=== PATIENT | male | born 1960 | race Caucasian/White ===

== ENCOUNTER 2016-05-21 10:46 | Emergency (ER) | payer OTHER ==
[~2016-05-21] VITALS: Ht 167.6 cm; Wt 100.0 kg
[~2016-05-21 10:46] MED LIST: ALBU8HFA IH; AMLO-511 PO; ATOR20TA86 PO; AUD NEB; BENA20 PO; BUDE10.2 IH; FLUT16H NASAL; FURO20 PO; KDUR10 PO; MONT10TA21 PO; OMEP20 PO
[2016-05-21] MEDS ORDERED: IPRATROPIUM BROMIDE 0.5 MG/2.5 ML NEB SOLUTION NEB ONE ×2 (11:05→12:15)
[2016-05-21] MEDS ORDERED: 0.9% SODIUM CHLORIDE 5 ML NEB SOLUTION NEB ONE ×2 (11:05→12:31)
[2016-05-21] MEDS ORDERED: ALBUTEROL SULFATE 2.5 MG/0.5 ML NEB SOLUTION NEB ONE (12:15)
[2016-05-21] MEDS ORDERED: HYDROCODONE/ACETAMINOPHEN 5-325 MG TABLET PO ONE (12:15)
[2016-05-21] MEDS ORDERED: PredniSONE 20 MG TABLET PO ONE (12:15)
[2016-05-21 13:21] VITALS: BP 121/81
== END 2016-05-21 13:22 | disposition home or self-care (01) ==
LOC: EMS 10:50
DX: J45.909 Unspecified asthma, uncomplicated (principal); I10 Essential (primary) hypertension; K21.9 Gastro-esophageal reflux disease without esophagitis; E78.00 Pure hypercholesterolemia, unspecified; Z88.6 Allergy status to analgesic agent
CPT/HCPCS: 71010; 93005; 94640; 99284; J7512

== ENCOUNTER 2016-05-27 00:47 | Emergency (ER) | payer MEDICARE, MEDICAID ==
[~2016-05-27] VITALS: Ht 167.6 cm; Wt 104.5 kg
[2016-05-27] MEDS ORDERED: IPRATROPIUM BROMIDE 0.5 MG/2.5 ML NEB SOLUTION NEB ONE ×2 (01:00)
[2016-05-27] MEDS ORDERED: ALBUTEROL SULFATE 5 MG/ML 20 ML NEB SOLN [BULK] NEB ONE ×2 (01:00→02:15)
[2016-05-27] MEDS ORDERED: LEVALBUTEROL HCL 1.25 MG/0.5 ML NEB SOLUTION NEB ONE (01:00)
[2016-05-27] MEDS ORDERED: 0.9% SODIUM CHLORIDE 5 ML NEB SOLUTION NEB ONE ×2 (01:05→02:18)
[2016-05-27 01:29] LABS: BASOPHILS % (AUTO) 0.7 % (0.0-2.0); EOSINOPHILS % (AUTO) 7.3 % (1.0-6.0); HEMOGLOBIN 13.3 g/dL (13.5-17.5); LYMPHOCYTES # (AUTO) 1.4 K/uL (1.0-4.8); LYMPHOCYTES % (AUTO) 9.8 % (22.0-44.0); MEAN CORPUSCULAR HEMOGLOBIN 26.8 pg (26.0-34.0); MEAN CORPUSCULAR HGB CONC 32.6 G/dL (31.0-37.0); MEAN CORPUSCULAR VOLUME 82 fL (80-100); MONOCYTES # (AUTO) 1.1 K/uL (0.1-1.0); MONOCYTES % (AUTO) 7.9 % (2.0-9.0); NEUTROPHILS # (AUTO) 10.3 K/uL (1.8-7.7); NEUTROPHILS % (AUTO) 74.3 % (40.0-70.0); PLATELET COUNT (AUTO) 243 K/uL (150-450); RED BLOOD CELL COUNT(AUTO) 4.97 MIL/uL (4.50-5.90); RED CELL DISTRIBUTION WIDTH 15.9 % (11.5-14.5); WHITE BLOOD COUNT (AUTO) 13.9 K/uL (4.5-11.0)
[2016-05-27 01:46] LABS: ANION GAP 13 mmol/L (8-16); CARBON DIOXIDE 25 mmol/L (22-29); CHLORIDE 101 mmol/L (98-107); SODIUM SERUM 139 mmol/L (136-145)
[2016-05-27 01:48] LABS: B-TYPE NATRIURETIC PEPTIDE 30 pg/mL (0-100); POTASSIUM 2.7 mmol/L (3.5-5.1)
[2016-05-27 01:50] LABS: ALANINE AMINOTRANSFERASE 35 U/L (12-78); ALBUMIN 3.6 g/dL (3.4-5.0); ASPARTATE AMINOTRANSFERASE 23 U/L (15-37); BILIRUBIN,TOTAL 0.6 mg/dL (0.1-1.0); CALCIUM, TOTAL 7.4 mg/dL (8.8-10.5); CREATININE 1.01 mg/dL (0.60-1.30); GLOMERULAR FILTR. RATE CALC > 60 mL/min (>60); TOTAL PROTEIN, SERUM 6.4 g/dL (6.4-8.2); UREA NITROGEN, BLOOD 11 mg/dL (7-18)
[2016-05-27] MEDS ORDERED: OxyCODONE HCL/ACETAMINOPHEN 5-325 MG TABLET PO ONE (02:00)
[2016-05-27] MEDS ORDERED: POTASSIUM CHLORIDE 20 MEQ ER TABLET PO ONE (02:00)
[2016-05-27 02:02] LABS: CREATINE KINASE MB 1.5 ng/mL (0-5); CREATINE KINASE, TOTAL 209 U/L (39-308)
[2016-05-27] MEDS ORDERED: CefTRIAXone 1 GM/DEXTROSE 50 ML IV ONE (02:15)
[2016-05-27] MEDS ORDERED: MethylPREDNISolone SOD SUCC 125 MG/2 ML VIAL IVP ONE (02:15)
[2016-05-27] MEDS ORDERED: AZITHROMYCIN 500 MG/NS 250 ML IV ONE (02:15)
[2016-05-27 03:59] VITALS: BP 155/83
== END 2016-05-27 04:00 | disposition left against medical advice (07) ==
LOC: EMS 00:49
DX: J45.901 Unspecified asthma with (acute) exacerbation (principal); J18.9 Pneumonia, unspecified organism; E87.6 Hypokalemia; I10 Essential (primary) hypertension; E78.00 Pure hypercholesterolemia, unspecified; K21.9 Gastro-esophageal reflux disease without esophagitis; Z88.6 Allergy status to analgesic agent
CPT/HCPCS: 36415; 71010; 80053; 82550; 82553; 83880; 84484; 85025; 87040; 93005; 94644; 94645; 96365; 96368; 96375; 99285; J0456; J0696; J2930

== ENCOUNTER → 2016-05-31 | Outpatient (CLI) | payer MEDICARE, MEDICAID ==
[~2016-05-31] VITALS: Ht 165.1 cm; Wt 114.6 kg
[2016-05-31 10:54] VITALS: BP 140/95
== END | disposition home or self-care (01) ==
LOC: SRCNTR 10:19
PROVIDERS: ATTEND Internal Medicine Critical Care Medicine
DX: I10 Essential (primary) hypertension (principal); J45.51 Severe persistent asthma with (acute) exacerbation; E66.01 Morbid (severe) obesity due to excess calories; E78.5 Hyperlipidemia, unspecified
CPT/HCPCS: G0463

== ENCOUNTER → 2016-07-20 | Outpatient (CLI) | payer MEDICARE, MEDICAID ==
[~2016-07-20] VITALS: Ht 165.1 cm; Wt 117.0 kg
[2016-07-20 12:37] VITALS: BP 140/79
== END | disposition home or self-care (01) ==
LOC: SRCNTR 11:43
PROVIDERS: ATTEND Internal Medicine Critical Care Medicine
DX: I10 Essential (primary) hypertension (principal); J45.51 Severe persistent asthma with (acute) exacerbation; E66.01 Morbid (severe) obesity due to excess calories; E78.5 Hyperlipidemia, unspecified
CPT/HCPCS: G0463

== ENCOUNTER → 2016-07-25 | Outpatient (CLI) | payer MEDICARE, MEDICAID ==
[~2016-07-25] VITALS: Ht 165.1 cm; Wt 117.0 kg
[2016-07-25 09:11] VITALS: BP 143/92
== END | disposition home or self-care (01) ==
LOC: SRCNTR 08:48
PROVIDERS: ATTEND Internal Medicine Critical Care Medicine
DX: I10 Essential (primary) hypertension (principal); J45.909 Unspecified asthma, uncomplicated
CPT/HCPCS: 96372; G0463

== ENCOUNTER → 2016-07-25 | Outpatient (CLI) | payer MEDICARE, MEDICAID ==
[2016-07-25 12:17] LABS: BASOPHILS % (AUTO) 0.4 % (0.0-2.0); EOSINOPHILS % (AUTO) 5.2 % (1.0-6.0); HEMATOCRIT 42.5 % (41-53); HEMOGLOBIN 13.7 g/dL (13.5-17.5); LYMPHOCYTES # (AUTO) 1.8 K/uL (1.0-4.8); LYMPHOCYTES % (AUTO) 23.5 % (22.0-44.0); MEAN CORPUSCULAR HEMOGLOBIN 27.2 pg (26.0-34.0); MEAN CORPUSCULAR HGB CONC 32.1 G/dL (31.0-37.0); MEAN CORPUSCULAR VOLUME 85 fL (80-100); MONOCYTES # (AUTO) 0.6 K/uL (0.1-1.0); MONOCYTES % (AUTO) 7.7 % (2.0-9.0); NEUTROPHILS # (AUTO) 4.8 K/uL (1.8-7.7); NEUTROPHILS % (AUTO) 63.2 % (40.0-70.0); PLATELET COUNT (AUTO) 245 K/uL (150-450); RED BLOOD CELL COUNT(AUTO) 5.02 MIL/uL (4.50-5.90); RED CELL DISTRIBUTION WIDTH 16.2 % (11.5-14.5); WHITE BLOOD COUNT (AUTO) 7.6 K/uL (4.5-11.0)
== END | disposition home or self-care (01) ==
LOC: LABPV 09:45
PROVIDERS: ATTEND Internal Medicine Critical Care Medicine
DX: I10 Essential (primary) hypertension (principal); J45.909 Unspecified asthma, uncomplicated; E66.9 Obesity, unspecified

== ENCOUNTER → 2016-09-21 | Outpatient (CLI) | payer MEDICARE, MEDICAID ==
[~2016-09-21] VITALS: Ht 165.1 cm; Wt 110.2 kg
[2016-09-21 11:38] VITALS: BP 133/92
== END | disposition home or self-care (01) ==
LOC: SRCNTR 11:31
PROVIDERS: ATTEND Internal Medicine Critical Care Medicine
DX: I10 Essential (primary) hypertension (principal); E78.5 Hyperlipidemia, unspecified; E66.01 Morbid (severe) obesity due to excess calories; J45.51 Severe persistent asthma with (acute) exacerbation
CPT/HCPCS: G0463

== ENCOUNTER → 2016-10-13 | Outpatient (CLI) | payer MEDICARE, MEDICAID ==
[~2016-10-13] VITALS: Ht 165.1 cm; Wt 108.6 kg
[2016-10-13 12:34] VITALS: BP 125/78
== END | disposition home or self-care (01) ==
LOC: SRCNTR 12:29
PROVIDERS: ATTEND Internal Medicine Critical Care Medicine
DX: J45.51 Severe persistent asthma with (acute) exacerbation (principal); E66.01 Morbid (severe) obesity due to excess calories; I10 Essential (primary) hypertension; E78.5 Hyperlipidemia, unspecified; Z96.652 Presence of left artificial knee joint; Z85.47 Personal history of malignant neoplasm of testis
CPT/HCPCS: G0463

== ENCOUNTER → 2017-05-05 | Outpatient (CLI) | payer MEDICAID, MEDICARE ==
[~2017-05-05] VITALS: Ht 165.1 cm; Wt 100.0 kg
[~2017-05-05] MED LIST changes: +MEPO100V SQ
[2017-05-05 13:22] VITALS: BP 98/62
== END | disposition home or self-care (01) ==
LOC: SRCNTR 12:49
PROVIDERS: ATTEND Internal Medicine Critical Care Medicine
DX: J45.51 Severe persistent asthma with (acute) exacerbation (principal); E66.01 Morbid (severe) obesity due to excess calories; I10 Essential (primary) hypertension; E78.5 Hyperlipidemia, unspecified
CPT/HCPCS: G0463

== ENCOUNTER 2017-07-17 18:13 | Emergency (ER) | payer MEDICARE, MEDICAID ==
[~2017-07-17] VITALS: Ht 167.6 cm; Wt 100.0 kg
[2017-07-17] MEDS ORDERED: 0.9% SODIUM CHLORIDE 5 ML NEB SOLUTION NEB ONE (18:22)
[2017-07-17] MEDS ORDERED: ALBUTEROL SULFATE 5 MG/ML 20 ML NEB SOLN [BULK] NEB ONE ×3 (18:22→19:30)
[2017-07-17] MEDS ORDERED: IPRATROPIUM BROMIDE 0.5 MG/2.5 ML NEB SOLUTION NEB ONE ×3 (18:22→19:30)
[2017-07-17] MEDS ORDERED: PredniSONE 20 MG TABLET PO ONE (19:00)
[2017-07-17] MEDS ORDERED: HYDROCODONE/ACETAMINOPHEN 5-325 MG TABLET PO ONE (19:00)
[2017-07-17] MEDS ORDERED: CefTRIAXone SODIUM 1 GM/VIAL IM ONE (19:00)
[2017-07-17] MEDS ORDERED: LIDOCAINE HCL/PF 1% 2 ML VIAL IM ONE (19:00)
[2017-07-17] MEDS ORDERED: 0.9% SODIUM CHLORIDE 15 ML NEB SOLUTION NEB ONE (19:28)
[2017-07-17 21:09] VITALS: BP 133/91
== END 2017-07-17 21:12 | disposition home or self-care (01) ==
LOC: EMS 18:15
DX: J45.901 Unspecified asthma with (acute) exacerbation (principal); E78.00 Pure hypercholesterolemia, unspecified; I10 Essential (primary) hypertension; K21.9 Gastro-esophageal reflux disease without esophagitis; Z88.6 Allergy status to analgesic agent
CPT/HCPCS: 94644; 94645; 96372; 99285; J0696; J3490; J7512

== ENCOUNTER → 2017-07-20 | Outpatient (CLI) | payer MEDICARE, MEDICAID ==
[~2017-07-20] VITALS: Ht 162.6 cm; Wt 105.0 kg
[2017-07-20 13:46] VITALS: BP 123/70
== END | disposition home or self-care (01) ==
LOC: SRCNTR 13:22
PROVIDERS: ATTEND Internal Medicine Critical Care Medicine
DX: J45.51 Severe persistent asthma with (acute) exacerbation (principal); E66.01 Morbid (severe) obesity due to excess calories; I10 Essential (primary) hypertension; E78.5 Hyperlipidemia, unspecified
CPT/HCPCS: G0463

== ENCOUNTER → 2017-08-11 | Outpatient (CLI) | payer MEDICARE, MEDICAID ==
[~2017-08-11] VITALS: Ht 162.6 cm; Wt 107.5 kg
[2017-08-11 13:55] VITALS: BP 137/90
== END | disposition home or self-care (01) ==
LOC: SRCNTR 13:45
PROVIDERS: ATTEND Internal Medicine Critical Care Medicine
DX: J45.51 Severe persistent asthma with (acute) exacerbation (principal); I10 Essential (primary) hypertension; E78.5 Hyperlipidemia, unspecified; E66.01 Morbid (severe) obesity due to excess calories; Z83.3 Family history of diabetes mellitus; Z88.6 Allergy status to analgesic agent
CPT/HCPCS: G0463

== ENCOUNTER 2017-08-22 17:57 | Emergency (ER) | payer MEDICARE, MEDICAID ==
[~2017-08-22] VITALS: Ht 167.6 cm; Wt 100.0 kg
[~2017-08-22 17:57] MED LIST changes: -FURO20 PO; -KDUR10 PO
[2017-08-22] MEDS ORDERED: ALBUTEROL SULFATE 2.5 MG/0.5 ML NEB SOLUTION NEB ONE (18:15)
[2017-08-22] MEDS ORDERED: IPRATROPIUM BROMIDE 0.5 MG/2.5 ML NEB SOLUTION NEB ONE ×2 (18:15→19:15)
[2017-08-22] MEDS ORDERED: HYDROCODONE/ACETAMINOPHEN 5-325 MG TABLET PO ONE ×2 (18:30→20:30)
[2017-08-22] MEDS ORDERED: ALBUTEROL SULFATE 5 MG/ML 20 ML NEB SOLN [BULK] NEB ONE (19:15)
[2017-08-22] MEDS ORDERED: 0.9% SODIUM CHLORIDE 15 ML NEB SOLUTION NEB ONE (19:18)
[2017-08-22] MEDS ORDERED: PredniSONE 20 MG TABLET PO ONE (20:30)
[2017-08-22 20:52] VITALS: BP 141/80
== END 2017-08-22 21:14 | disposition home or self-care (01) ==
LOC: EMS 18:00
DX: J45.901 Unspecified asthma with (acute) exacerbation (principal); E78.00 Pure hypercholesterolemia, unspecified; I10 Essential (primary) hypertension; K21.9 Gastro-esophageal reflux disease without esophagitis; Z88.6 Allergy status to analgesic agent
CPT/HCPCS: 94060; 94640; 94644; 99285; J7512

== ENCOUNTER 2017-10-29 08:25 | Inpatient (IN) | payer MEDICARE, MEDICAID ==
[~2017-10-29] VITALS: Ht 167.6 cm; Wt 110.3 kg
[2017-10-29] MEDS ORDERED: CLON-570 PO (08:36)
[2017-10-29] MEDS ORDERED: CROM10DR2 OU (08:36)
[2017-10-29] MEDS ORDERED: FURO20 PO (08:36)
[2017-10-29] MEDS ORDERED: ALBUTEROL SULFATE 5 MG/ML 20 ML NEB SOLN [BULK] NEB ONE ×2 (08:45→09:15)
[2017-10-29] MEDS ORDERED: IPRATROPIUM BROMIDE 0.5 MG/2.5 ML NEB SOLUTION NEB ONE ×2 (08:45→09:15)
[2017-10-29] MEDS ORDERED: MethylPREDNISolone SOD SUCC 125 MG/2 ML VIAL IVP ONE (09:00)
[2017-10-29 09:10] LABS: BASOPHILS % (AUTO) 1.4 % (0.0-2.0); EOSINOPHILS % (AUTO) 1.2 % (1.0-6.0); HEMATOCRIT 43.1 % (41-53); HEMOGLOBIN 14.4 g/dL (13.5-17.5); LYMPHOCYTES # (AUTO) 1.9 K/uL (1.0-4.8); LYMPHOCYTES % (AUTO) 15.2 % (22.0-44.0); MEAN CORPUSCULAR HEMOGLOBIN 28.8 pg (26.0-34.0); MEAN CORPUSCULAR HGB CONC 33.3 G/dL (31.0-37.0); MEAN CORPUSCULAR VOLUME 86 fL (80-100); MONOCYTES % (AUTO) 8.4 % (2.0-9.0); NEUTROPHILS % (AUTO) 73.8 % (40.0-70.0); PLATELET COUNT (AUTO) 224 K/uL (150-450); RED BLOOD CELL COUNT(AUTO) 4.99 MIL/uL (4.50-5.90); RED CELL DISTRIBUTION WIDTH 15.7 % (11.5-14.5)
[2017-10-29 09:17] LABS: ANION GAP 19 mmol/L (8-16); CALCIUM, TOTAL 8.2 mg/dL (8.8-10.5); CARBON DIOXIDE 21 mmol/L (22-29); CHLORIDE 106 mmol/L (98-107); CREATININE 0.92 mg/dL (0.60-1.30); GLOMERULAR FILTR. RATE CALC > 60 mL/min (>60); GLUCOSE,RANDOM 80 mg/dL (70-110); POTASSIUM 3.1 mmol/L (3.5-5.1); SODIUM SERUM 146 mmol/L (136-145); UREA NITROGEN, BLOOD 10 mg/dL (7-18)
[2017-10-29 09:23] LABS: ALANINE AMINOTRANSFERASE 40 U/L (12-78); ALBUMIN 3.8 g/dL (3.4-5.0); ALKALINE PHOSPHATASE 103 U/L (46-116); ASPARTATE AMINOTRANSFERASE 27 U/L (15-37); BILIRUBIN,TOTAL 0.6 mg/dL (0.1-1.0); LIPASE 74 U/L (73-393); TOTAL PROTEIN, SERUM 6.8 g/dL (6.4-8.2)
[2017-10-29 09:30] LABS: LACTIC ACID 6.9 mmol/L (0.4-2.0)
[2017-10-29] MEDS ORDERED: ALBUTEROL SULFATE 2.5 MG/0.5 ML NEB SOLUTION NEB PRN (10:00)
[2017-10-29] MEDS ORDERED: FentaNYL CITRATE-PF 100 MCG/2 ML VIAL IVP ONE (10:00)
[2017-10-29] MEDS ORDERED: ONDANSETRON HCL 4 MG/2 ML VIAL IVP PRN (10:00)
[2017-10-29] MEDS ORDERED: ACETAMINOPHEN 325 MG TABLET PO PRN (10:00)
[2017-10-29] MEDS ORDERED: IPRATROPIUM BROMIDE 0.5 MG/2.5 ML NEB SOLUTION NEB PRN (10:00)
[2017-10-29] MEDS ORDERED: 0.9% SODIUM CHLORIDE 10 ML SYRINGE IVP PRN (10:00)
[2017-10-29 10:09] LABS: ABG A-A DIFF O2 104.9 mmHg (10-20.0); ABG BASE EXCESS -14.1 mmol/L (-2.0-3.0); ABG CARBOXYHEMOGLOBIN 1.3 % (0.0-1.5); ABG HCO3 14.7 mmol/L (22.0-26.0); ABG METHEMOGLOBIN 0.5 % (0.0-1.5); ABG OXYGEN CONTENT 20.4 mL/dL (15.0-23.0); ABG OXYGEN SATURATION 95.5 % (95.0-98.0); ABG OXYHEMOGLOBIN 93.8 % (94.0-100.0); ABG PCO2 33 mmHg (35-45); ABG PH 7.233 (7.35-7.450); ABG TOTAL HEMOGLOBIN 15.4 G/dL (12.0-18.0); PO2, ARTERIAL BG 85.5 mmHg (84.0-92.0); SOURCE, BLOOD GAS ARTERIAL
[2017-10-29 10:10] LABS: O2 DEVICE,BLOOD GAS NC (ROOM AIR); SITE, BLOOD GAS RT RADIAL
[2017-10-29] MEDS ORDERED: SODIUM CHLORIDE 0.9% 1,000 ML IV ONE (10:15)
[2017-10-29 10:41] VITALS: BP 130/86
[2017-10-29] MEDS ORDERED: ALBUTEROL SULFATE 2.5 MG/0.5 ML NEB SOLUTION NEB SCH (11:00)
[2017-10-29] MEDS ORDERED: IPRATROPIUM BROMIDE 0.5 MG/2.5 ML NEB SOLUTION NEB SCH (11:00)
[2017-10-29] MEDS: BENAZEPRIL HCL 20 MG TABLET PO SCH (12:30)
[2017-10-29] MEDS: HYDROCODONE/ACETAMINOPHEN 5-325 MG TABLET PO PRN ×2 (12:52→18:42)
[2017-10-29] MEDS: MONTELUKAST SODIUM 10 MG TABLET PO SCH (12:58)
[2017-10-29] MEDS: CloNIDine HCL 0.1 MG TABLET PO SCH (12:58)
[2017-10-29] MEDS: FUROSEMIDE 20 MG TABLET PO SCH (12:58)
[2017-10-29] MEDS: ATORVASTATIN CALCIUM 20 MG TABLET PO SCH (12:58)
[2017-10-29] MEDS: IPRATROPIUM BROMIDE 0.5 MG/2.5 ML NEB SOLUTION NEB SCH ×2 (13:27→20:01)
[2017-10-29] MEDS: ALBUTEROL SULFATE 2.5 MG/0.5 ML NEB SOLUTION NEB SCH ×2 (13:27→20:01)
[2017-10-29] MEDS: ALBUTEROL SULFATE 2.5 MG/0.5 ML NEB SOLUTION NEB PRN ×3 (15:09→23:09)
[2017-10-29] MEDS: IPRATROPIUM BROMIDE 0.5 MG/2.5 ML NEB SOLUTION NEB PRN ×3 (15:09→23:08)
[2017-10-29 15:43] VITALS: BP 123/73
[2017-10-29] MEDS: MethylPREDNISolone SOD SUCC 40 MG/ML VIAL IVP SCH (15:58)
[2017-10-29 18:19] LABS: APPEARANCE,URINE CLEAR (CLEAR); BILIRUBIN,URINE NEGATIVE (NEGATIVE); GLUCOSE, URINE (UA) 500 mg/dL (NEGATIVE); KETONES,URINE >=80 mg/dL (NEGATIVE); LEUKOCYTE ESTERASE ,URINE NEGATIVE (NEGATIVE); NITRATE,URINE NEGATIVE (NEGATIVE); PROTEIN,URINE TRACE (NEGATIVE); UROBILINOGEN,URINE 0.2 mg/dL (<=1.0)
[2017-10-29 18:32] LABS: OCCULT BLOOD,URINE TRACE (NEGATIVE)
[2017-10-29 18:33] LABS: RBC,URINE 0-2 /HPF (0-2)
[2017-10-29 18:41] LABS: BACTERIA,URINE None Seen /HPF (None Seen); WBC,URINE None Seen /HPF (0-5)
[2017-10-29 19:40] VITALS: BP 142/95
[2017-10-29] MEDS: CROMOLYN SODIUM 4% OU SCH (20:20)
[2017-10-29] MEDS: FLUTICASONE PROPIONATE 50 MCG/SPRAY 16 GM NASAL SPRAY NASAL SCH (20:20)
[2017-10-29 23:51] VITALS: BP 152/100
[2017-10-30] MEDS: MethylPREDNISolone SOD SUCC 40 MG/ML VIAL IVP SCH ×2 (00:14→08:07)
[2017-10-30] MEDS: HYDROCODONE/ACETAMINOPHEN 5-325 MG TABLET PO PRN ×4 (00:46→20:11)
[2017-10-30] MEDS: ALBUTEROL SULFATE 2.5 MG/0.5 ML NEB SOLUTION NEB SCH ×5 (02:06→22:46)
[2017-10-30] MEDS: IPRATROPIUM BROMIDE 0.5 MG/2.5 ML NEB SOLUTION NEB SCH ×5 (02:06→22:46)
[2017-10-30 04:21] VITALS: BP 152/93
[2017-10-30 07:24] LABS: EOSINOPHILS % (AUTO) 0 % (1.0-6.0); HEMATOCRIT 38.4 % (41-53); HEMOGLOBIN 13.2 g/dL (13.5-17.5); LYMPHOCYTES # (AUTO) 0.2 K/uL (1.0-4.8); LYMPHOCYTES % (AUTO) 2.1 % (22.0-44.0); MEAN CORPUSCULAR HEMOGLOBIN 29.1 pg (26.0-34.0); MEAN CORPUSCULAR HGB CONC 34.4 G/dL (31.0-37.0); MEAN CORPUSCULAR VOLUME 85 fL (80-100); MONOCYTES # (AUTO) 0.4 K/uL (0.1-1.0); MONOCYTES % (AUTO) 3.2 % (2.0-9.0); NEUTROPHILS # (AUTO) 10.8 K/uL (1.8-7.7); PLATELET COUNT (AUTO) 161 K/uL (150-450); RED BLOOD CELL COUNT(AUTO) 4.54 MIL/uL (4.50-5.90); RED CELL DISTRIBUTION WIDTH 15.3 % (11.5-14.5)
[2017-10-30 07:28] LABS: NEUTROPHILS % (AUTO) 94.7 % (40.0-70.0)
[2017-10-30 07:40] VITALS: BP 156/89
[2017-10-30 07:51] LABS: ANION GAP 10 mmol/L (8-16); CALCIUM, TOTAL 8.6 mg/dL (8.8-10.5); CARBON DIOXIDE 25 mmol/L (22-29); CHLORIDE 101 mmol/L (98-107); CREATININE 0.95 mg/dL (0.60-1.30); GLOMERULAR FILTR. RATE CALC > 60 mL/min (>60); GLUCOSE,RANDOM 207 mg/dL (70-110); SODIUM SERUM 136 mmol/L (136-145); THYROID STIMULATING HORMONE 0.61 uIU/mL (0.36-3.74); UREA NITROGEN, BLOOD 7 mg/dL (7-18)
[2017-10-30] MEDS: CROMOLYN SODIUM 4% OU SCH ×2 (08:05→20:10)
[2017-10-30] MEDS: FLUTICASONE PROPIONATE 50 MCG/SPRAY 16 GM NASAL SPRAY NASAL SCH ×2 (08:05→20:10)
[2017-10-30] MEDS: CloNIDine HCL 0.1 MG TABLET PO SCH (08:06)
[2017-10-30] MEDS: FUROSEMIDE 20 MG TABLET PO SCH (08:06)
[2017-10-30] MEDS: OMEPRAZOLE 20 MG CAPSULE PO SCH (08:06)
[2017-10-30] MEDS: AmLODIPine BESYLATE 5 MG TABLET PO SCH (08:06)
[2017-10-30] MEDS: MONTELUKAST SODIUM 10 MG TABLET PO SCH (08:06)
[2017-10-30] MEDS: ATORVASTATIN CALCIUM 20 MG TABLET PO SCH (08:07)
[2017-10-30] MEDS: BENAZEPRIL HCL 20 MG TABLET PO SCH (08:07)
[2017-10-30 08:18] LABS: POTASSIUM 2.9 mmol/L (3.5-5.1)
[2017-10-30] MEDS ORDERED: SODIUM CHLORIDE 0.9% 1,000 ML IV ONE (08:40)
[2017-10-30] MEDS: POTASSIUM CHL 10 MEQ/WATER 50 ML IV PRN ×4 (08:44→12:11)
[2017-10-30] MEDS ORDERED: POTASSIUM CHLORIDE 20 MEQ ER TABLET PO PRN (08:45)
[2017-10-30 11:38] VITALS: BP 131/84
[2017-10-30] MEDS ORDERED: CloNIDine HCL 0.1 MG TABLET PO PRN (12:45)
[2017-10-30] MEDS ORDERED: ALBUTEROL SULFATE 2.5 MG/0.5 ML NEB SOLUTION NEB SCH (15:00)
[2017-10-30] MEDS: MethylPREDNISolone SOD SUCC 125 MG/2 ML VIAL IVP SCH (16:10)
[2017-10-30 16:48] VITALS: BP 135/78
[2017-10-30 19:31] VITALS: BP 130/73
[2017-10-30 23:48] VITALS: BP 139/80
[2017-10-31] MEDS: MethylPREDNISolone SOD SUCC 125 MG/2 ML VIAL IVP SCH ×2 (00:06→08:06)
[2017-10-31] MEDS: HYDROCODONE/ACETAMINOPHEN 5-325 MG TABLET PO PRN ×4 (02:07→20:30)
[2017-10-31] MEDS: IPRATROPIUM BROMIDE 0.5 MG/2.5 ML NEB SOLUTION NEB SCH ×6 (02:53→22:48)
[2017-10-31] MEDS: ALBUTEROL SULFATE 2.5 MG/0.5 ML NEB SOLUTION NEB SCH ×6 (02:53→22:48)
[2017-10-31 04:15] VITALS: BP 136/84
[2017-10-31 07:33] VITALS: BP 139/77
[2017-10-31] MEDS: FLUTICASONE PROPIONATE 50 MCG/SPRAY 16 GM NASAL SPRAY NASAL SCH ×2 (08:05→20:30)
[2017-10-31] MEDS: CROMOLYN SODIUM 4% OU SCH ×2 (08:06→20:31)
[2017-10-31] MEDS: ATORVASTATIN CALCIUM 20 MG TABLET PO SCH (08:07)
[2017-10-31] MEDS: MONTELUKAST SODIUM 10 MG TABLET PO SCH (08:07)
[2017-10-31] MEDS: BENAZEPRIL HCL 20 MG TABLET PO SCH (08:07)
[2017-10-31] MEDS: FUROSEMIDE 20 MG TABLET PO SCH (08:07)
[2017-10-31] MEDS: AmLODIPine BESYLATE 5 MG TABLET PO SCH (08:07)
[2017-10-31] MEDS: OMEPRAZOLE 20 MG CAPSULE PO SCH (08:08)
[2017-10-31] MEDS: POTASSIUM CHLORIDE 20 MEQ ER TABLET PO SCH (08:08)
[2017-10-31] MEDS: CloNIDine HCL 0.1 MG TABLET PO SCH (09:30)
[2017-10-31 11:45] VITALS: BP 148/83
[2017-10-31 16:46] VITALS: BP 128/80
[2017-10-31 20:17] VITALS: BP 144/83
[2017-10-31] MEDS: PredniSONE 20 MG TABLET PO SCH (20:30)
[2017-11-01 00:30] VITALS: BP 138/80
[2017-11-01] MEDS: ALBUTEROL SULFATE 2.5 MG/0.5 ML NEB SOLUTION NEB SCH ×3 (02:46→12:28)
[2017-11-01] MEDS: IPRATROPIUM BROMIDE 0.5 MG/2.5 ML NEB SOLUTION NEB SCH ×3 (02:46→12:28)
[2017-11-01 04:35] VITALS: BP 146/80
[2017-11-01] MEDS: HYDROCODONE/ACETAMINOPHEN 5-325 MG TABLET PO PRN ×2 (06:54→13:17)
[2017-11-01 07:43] VITALS: BP 147/94
[2017-11-01] MEDS: FLUTICASONE PROPIONATE 50 MCG/SPRAY 16 GM NASAL SPRAY NASAL SCH (08:04)
[2017-11-01] MEDS: CROMOLYN SODIUM 4% OU SCH (08:04)
[2017-11-01] MEDS: AmLODIPine BESYLATE 5 MG TABLET PO SCH (08:05)
[2017-11-01] MEDS: MONTELUKAST SODIUM 10 MG TABLET PO SCH (08:05)
[2017-11-01] MEDS: FUROSEMIDE 20 MG TABLET PO SCH (08:05)
[2017-11-01] MEDS: PredniSONE 20 MG TABLET PO SCH (08:05)
[2017-11-01] MEDS: OMEPRAZOLE 20 MG CAPSULE PO SCH (08:05)
[2017-11-01] MEDS: CloNIDine HCL 0.1 MG TABLET PO SCH (08:05)
[2017-11-01] MEDS: ATORVASTATIN CALCIUM 20 MG TABLET PO SCH (08:13)
[2017-11-01] MEDS: BENAZEPRIL HCL 20 MG TABLET PO SCH (08:13)
[2017-11-01] MEDS: POTASSIUM CHLORIDE 20 MEQ ER TABLET PO SCH (08:13)
[2017-11-01] MEDS ORDERED: PRED20 PO (10:29)
[2017-11-01 11:34] VITALS: BP 134/86
== END 2017-11-01 13:20 | disposition home or self-care (01) | DRG 189 ==
LOC: EMS 08:26 → 5S 10:12
PROVIDERS: ADMIT Family Medicine; ATTEND Family Medicine
DX: J96.20 Acute and chronic respiratory failure, unspecified whether with hypoxia or hypercapnia (principal); E87.2 Acidosis; J45.901 Unspecified asthma with (acute) exacerbation; E66.9 Obesity, unspecified; M19.90 Unspecified osteoarthritis, unspecified site; E78.00 Pure hypercholesterolemia, unspecified; E78.5 Hyperlipidemia, unspecified; K21.9 Gastro-esophageal reflux disease without esophagitis; E86.0 Dehydration; I10 Essential (primary) hypertension; J20.9 Acute bronchitis, unspecified; Z96.659 Presence of unspecified artificial knee joint; Z88.6 Allergy status to analgesic agent; Z79.899 Other long term (current) drug therapy; Z79.51 Long term (current) use of inhaled steroids; Z68.39 Body mass index [BMI] 39.0-39.9, adult; Z82.49 Family history of ischemic heart disease and other diseases of the circulatory system; Z82.5 Family history of asthma and other chronic lower respiratory diseases; Z84.1 Family history of disorders of kidney and ureter
CPT/HCPCS: 82805; 83605; 83735; 84132; 84443; 93005; 94060; 94640; 94644; 96374; 96375; 99291; J2405; J2920; J2930; J3010; J3480; J7030

== ENCOUNTER 2017-11-04 08:03 | Emergency (ER) | payer MEDICARE, MEDICAID ==
[~2017-11-04] VITALS: Ht 167.6 cm; Wt 104.5 kg
[~2017-11-04 08:03] MED LIST changes: -BUDE10.2 IH; +CLON-570 PO; +CROM10DR2 OU; +FURO20 PO; -MEPO100V SQ; +PRED20 PO
[2017-11-04] MEDS ORDERED: AZIT250T9 PO (08:12)
[2017-11-04] MEDS ORDERED: MethylPREDNISolone SOD SUCC 125 MG/2 ML VIAL IVP ONE (08:45)
[2017-11-04] MEDS ORDERED: ALBUTEROL SULFATE 5 MG/ML 20 ML NEB SOLN [BULK] NEB ONE (08:45)
[2017-11-04] MEDS ORDERED: IPRATROPIUM BROMIDE 0.5 MG/2.5 ML NEB SOLUTION NEB ONE (08:45)
[2017-11-04] MEDS ORDERED: 0.9% SODIUM CHLORIDE 5 ML NEB SOLUTION NEB ONE (08:56)
[2017-11-04 08:58] LABS: BASOPHILS % (AUTO) 0.5 % (0.0-2.0); EOSINOPHILS % (AUTO) 1.8 % (1.0-6.0); HEMATOCRIT 43.5 % (41-53); HEMOGLOBIN 14.7 g/dL (13.5-17.5); LYMPHOCYTES # (AUTO) 1.5 K/uL (1.0-4.8); LYMPHOCYTES % (AUTO) 9.3 % (22.0-44.0); MEAN CORPUSCULAR HEMOGLOBIN 28.9 pg (26.0-34.0); MEAN CORPUSCULAR HGB CONC 33.8 G/dL (31.0-37.0); MEAN CORPUSCULAR VOLUME 85 fL (80-100); MONOCYTES # (AUTO) 1.8 K/uL (0.1-1.0); MONOCYTES % (AUTO) 10.6 % (2.0-9.0); NEUTROPHILS # (AUTO) 12.9 K/uL (1.8-7.7); NEUTROPHILS % (AUTO) 77.8 % (40.0-70.0); PLATELET COUNT (AUTO) 131 K/uL (150-450); RED CELL DISTRIBUTION WIDTH 15.7 % (11.5-14.5)
[2017-11-04] MEDS ORDERED: CeFAZolin 1 GM/DEXTROSE 50 ML IV ONE (09:15)
[2017-11-04] MEDS ORDERED: SODIUM CHLORIDE 0.9% 1,000 ML IV ONE (09:15)
[2017-11-04 09:16] LABS: ALANINE AMINOTRANSFERASE 65 U/L (12-78); ALBUMIN 3.2 g/dL (3.4-5.0); ALKALINE PHOSPHATASE 77 U/L (46-116); ANION GAP 9 mmol/L (8-16); ASPARTATE AMINOTRANSFERASE 22 U/L (15-37); BILIRUBIN,TOTAL 1.2 mg/dL (0.1-1.0); CALCIUM, TOTAL 7.8 mg/dL (8.8-10.5); CARBON DIOXIDE 28 mmol/L (22-29); CHLORIDE 97 mmol/L (98-107); CREATININE 1.03 mg/dL (0.60-1.30); GLOMERULAR FILTR. RATE CALC > 60 mL/min (>60); GLUCOSE,RANDOM 113 mg/dL (70-110); SODIUM SERUM 134 mmol/L (136-145); TOTAL PROTEIN, SERUM 6.7 g/dL (6.4-8.2); UREA NITROGEN, BLOOD 10 mg/dL (7-18)
[2017-11-04 09:19] LABS: LACTIC ACID 0.8 mmol/L (0.4-2.0); POTASSIUM 2.7 mmol/L (3.5-5.1)
[2017-11-04] MEDS ORDERED: POTASSIUM CHLORIDE 20 MEQ ER TABLET PO ONE (09:30)
[2017-11-04 11:00] VITALS: BP 158/97
== END 2017-11-04 11:03 | disposition home or self-care (01) ==
LOC: EMS 08:04
DX: J45.901 Unspecified asthma with (acute) exacerbation (principal); I80.9 Phlebitis and thrombophlebitis of unspecified site; I10 Essential (primary) hypertension; E78.00 Pure hypercholesterolemia, unspecified; K21.9 Gastro-esophageal reflux disease without esophagitis; Z88.6 Allergy status to analgesic agent
CPT/HCPCS: 36415; 71045; 80053; 83605; 85025; 87040; 93005; 94644; 96374; 96375; 99285; J0690; J2930; J7030

== ENCOUNTER → 2017-11-09 | Outpatient (CLI) | payer MEDICARE, MEDICAID ==
[~2017-11-09] VITALS: Ht 162.6 cm; Wt 109.0 kg
[~2017-11-09] MED LIST changes: +AZIT250T9 PO; +KDUR10 PO
[2017-11-09 12:34] VITALS: BP 150/90
== END | disposition home or self-care (01) ==
LOC: SRCNTR 12:14
PROVIDERS: ATTEND Internal Medicine Critical Care Medicine
DX: J45.51 Severe persistent asthma with (acute) exacerbation (principal); E66.01 Morbid (severe) obesity due to excess calories; I10 Essential (primary) hypertension; I25.10 Atherosclerotic heart disease of native coronary artery without angina pectoris; K21.9 Gastro-esophageal reflux disease without esophagitis; E78.00 Pure hypercholesterolemia, unspecified
CPT/HCPCS: G0463

== ENCOUNTER → 2017-12-13 | Outpatient (CLI) | payer MEDICARE, MEDICAID ==
[~2017-12-13] VITALS: Ht 167.6 cm; Wt 108.6 kg
[2017-12-13 13:55] VITALS: BP 144/81
== END | disposition home or self-care (01) ==
LOC: SRCNTR 13:46
PROVIDERS: ATTEND Internal Medicine Critical Care Medicine
DX: J45.41 Moderate persistent asthma with (acute) exacerbation (principal); E66.01 Morbid (severe) obesity due to excess calories; I10 Essential (primary) hypertension; E78.5 Hyperlipidemia, unspecified; I25.10 Atherosclerotic heart disease of native coronary artery without angina pectoris; E78.00 Pure hypercholesterolemia, unspecified; K21.9 Gastro-esophageal reflux disease without esophagitis
CPT/HCPCS: G0463

== ENCOUNTER 2018-01-03 09:34 | Emergency (ER) | payer MEDICARE, MEDICAID ==
[~2018-01-03] VITALS: Ht 167.6 cm; Wt 100.0 kg
[~2018-01-03 09:34] MED LIST changes: -FURO20 PO
[2018-01-03] MEDS ORDERED: IPRATROPIUM BROMIDE 0.5 MG/2.5 ML NEB SOLUTION NEB ONE (10:00)
[2018-01-03] MEDS ORDERED: ACETAMINOPHEN 500 MG TABLET PO ONE (10:00)
[2018-01-03] MEDS ORDERED: ALBUTEROL SULFATE 5 MG/ML 20 ML NEB SOLN [BULK] NEB ONE (10:00)
[2018-01-03] MEDS ORDERED: PredniSONE 20 MG TABLET PO ONE (10:00)
[2018-01-03] MEDS ORDERED: 0.9% SODIUM CHLORIDE 5 ML NEB SOLUTION NEB ONE (10:01)
[2018-01-03 10:16] LABS: BASOPHILS % (AUTO) 0.7 % (0.0-2.0); EOSINOPHILS % (AUTO) 0.5 % (1.0-6.0); HEMATOCRIT 44.3 % (41-53); HEMOGLOBIN 14.9 g/dL (13.5-17.5); LYMPHOCYTES # (AUTO) 2.7 K/uL (1.0-4.8); LYMPHOCYTES % (AUTO) 35.8 % (22.0-44.0); MEAN CORPUSCULAR HGB CONC 33.7 G/dL (31.0-37.0); MEAN CORPUSCULAR VOLUME 86 fL (80-100); MONOCYTES # (AUTO) 0.7 K/uL (0.1-1.0); NEUTROPHILS # (AUTO) 4.1 K/uL (1.8-7.7); PLATELET COUNT (AUTO) 281 K/uL (150-450); RED BLOOD CELL COUNT(AUTO) 5.15 MIL/uL (4.50-5.90); RED CELL DISTRIBUTION WIDTH 15.4 % (11.5-14.5)
[2018-01-03 10:24] LABS: ANION GAP 17 mmol/L (8-16); CALCIUM, TOTAL 8.2 mg/dL (8.8-10.5); CARBON DIOXIDE 20 mmol/L (22-29); CHLORIDE 106 mmol/L (98-107); CREATININE 1.01 mg/dL (0.60-1.30); GLOMERULAR FILTR. RATE CALC > 60 mL/min (>60); GLUCOSE,RANDOM 128 mg/dL (70-110); POTASSIUM 3.3 mmol/L (3.5-5.1); SODIUM SERUM 143 mmol/L (136-145); UREA NITROGEN, BLOOD 10 mg/dL (7-18)
[2018-01-03 10:49] VITALS: BP 147/87
== END 2018-01-03 11:37 | disposition home or self-care (01) ==
LOC: EDUNIT# 09:34 → EDBD 09:37 → EMS 09:37
DX: J44.1 Chronic obstructive pulmonary disease with (acute) exacerbation (principal); F10.229 Alcohol dependence with intoxication, unspecified; G62.9 Polyneuropathy, unspecified; K21.9 Gastro-esophageal reflux disease without esophagitis; E78.00 Pure hypercholesterolemia, unspecified; I10 Essential (primary) hypertension; F17.210 Nicotine dependence, cigarettes, uncomplicated; Z71.6 Tobacco abuse counseling; Z88.6 Allergy status to analgesic agent; Z79.899 Other long term (current) drug therapy
CPT/HCPCS: 36415; 80048; 85025; 94644; 99285; 99406; G0480; J7512

== ENCOUNTER 2018-02-06 13:52 | Inpatient (IN) | payer MEDICARE, MEDICAID ==
[~2018-02-06] VITALS: Ht 167.6 cm; Wt 103.6 kg
[~2018-02-06 13:52] MED LIST changes: -AZIT250T9 PO
[2018-02-06] MEDS ORDERED: IPRATROPIUM BROMIDE 0.5 MG/2.5 ML NEB SOLUTION NEB ONE ×4 (14:00→17:00)
[2018-02-06] MEDS ORDERED: ALBUTEROL SULFATE 2.5 MG/0.5 ML NEB SOLUTION NEB ONE ×2 (14:00→16:45)
[2018-02-06] MEDS ORDERED: 0.9% SODIUM CHLORIDE 15 ML NEB SOLUTION NEB ONE ×2 (14:14→14:20)
[2018-02-06] MEDS ORDERED: ALBUTEROL SULFATE 5 MG/ML 20 ML NEB SOLN [BULK] NEB ONE ×2 (14:30→17:00)
[2018-02-06] MEDS ORDERED: ONDANSETRON HCL 4 MG/2 ML VIAL IVP ONE (14:45)
[2018-02-06] MEDS ORDERED: MethylPREDNISolone SOD SUCC 125 MG/2 ML VIAL IVP ONE (14:45)
[2018-02-06] MEDS ORDERED: MORPHINE SULFATE 2 MG/ML SYRINGE IVP ONE (14:45)
[2018-02-06 15:04] LABS: HEMATOCRIT 40.8 % (41-53); HEMOGLOBIN 13.7 g/dL (13.5-17.5); MEAN CORPUSCULAR HEMOGLOBIN 29.9 pg (26.0-34.0); MEAN CORPUSCULAR HGB CONC 33.6 G/dL (31.0-37.0); MEAN CORPUSCULAR VOLUME 89 fL (80-100); PLATELET COUNT (AUTO) 203 K/uL (150-450); RED BLOOD CELL COUNT(AUTO) 4.58 MIL/uL (4.50-5.90); RED CELL DISTRIBUTION WIDTH 17.1 % (11.5-14.5)
[2018-02-06 15:15] LABS: ANION GAP 8 mmol/L (8-16); CALCIUM, TOTAL 7.9 mg/dL (8.8-10.5); CARBON DIOXIDE 28 mmol/L (22-29); CHLORIDE 105 mmol/L (98-107); CREATININE 1.03 mg/dL (0.60-1.30); GLOMERULAR FILTR. RATE CALC > 60 mL/min (>60); GLUCOSE,RANDOM 105 mg/dL (70-110); POTASSIUM 3.1 mmol/L (3.5-5.1); SODIUM SERUM 141 mmol/L (136-145); UREA NITROGEN, BLOOD 6 mg/dL (7-18)
[2018-02-06 15:21] LABS: ALANINE AMINOTRANSFERASE 71 U/L (12-78); ALBUMIN 2.9 g/dL (3.4-5.0); ALKALINE PHOSPHATASE 79 U/L (46-116); ASPARTATE AMINOTRANSFERASE 46 U/L (15-37); BILIRUBIN,TOTAL 0.4 mg/dL (0.1-1.0); TOTAL PROTEIN, SERUM 6.3 g/dL (6.4-8.2)
[2018-02-06 15:24] LABS: B-TYPE NATRIURETIC PEPTIDE 10 pg/mL (0-100)
[2018-02-06] MEDS ORDERED: DiphenhydrAMINE HCL 25 MG CAPSULE PO ONE (16:45)
[2018-02-06 16:56] LABS: BAND NEUTROPHILS % (MANUAL) 3 % (0-5); BASOPHILS % (MANUAL) 1 % (0-2); EOSINOPHILS % (MANUAL) 1 % (1-6); LYMPHOCYTES % (MANUAL) 24 % (22-44); MONOCYTES % (MANUAL) 23 % (2-9); SEGMENTED NEUTROPHILS % 48 % (40-70)
[2018-02-06] MEDS ORDERED: 0.9% SODIUM CHLORIDE 5 ML NEB SOLUTION NEB ONE (16:58)
[2018-02-06] MEDS ORDERED: ACETAMINOPHEN 325 MG TABLET PO PRN (19:15)
[2018-02-06] MEDS ORDERED: BISACODYL 10 MG RECTAL RECTAL SUPPOSITORY PR PRN (19:15)
[2018-02-06] MEDS ORDERED: ZOLPIDEM TARTRATE 5 MG TABLET PO PRN (19:15)
[2018-02-06] MEDS ORDERED: MAGNESIUM HYDROXIDE SUSPENSION 30 ML UDCUP PO PRN (19:15)
[2018-02-06] MEDS ORDERED: POTASSIUM CHLORIDE 20 MEQ ER TABLET PO PRN (19:15)
[2018-02-06] MEDS ORDERED: INSULIN LISPRO 100 UNITS/ML SQ PRN (19:15)
[2018-02-06] MEDS ORDERED: POTASSIUM CHL 10 MEQ/WATER 50 ML IV PRN (19:15)
[2018-02-06] MEDS ORDERED: MAGNESIUM OXIDE 400 MG TABLET PO PRN (19:15)
[2018-02-06] MEDS ORDERED: DEXTROSE 50%-WATER 25 GM/50 ML SYRINGE IVP PRN (19:15)
[2018-02-06] MEDS ORDERED: MAGNESIUM SULFATE 2 GM/WATER 50 ML IV PRN (19:15)
[2018-02-06] MEDS ORDERED: MAGNESIUM SULFATE 4 GM/WATER 100 ML IV PRN (19:15)
[2018-02-06 19:26] VITALS: BP 113/69
[2018-02-06] MEDS: IPRATROPIUM BROMIDE 0.5 MG/2.5 ML NEB SOLUTION NEB PRN (20:38)
[2018-02-06] MEDS: ALBUTEROL SULFATE 2.5 MG/0.5 ML NEB SOLUTION NEB PRN (20:38)
[2018-02-06] MEDS: HEPARIN SODIUM,PORCINE 5,000 UNITS/ML VIAL SQ SCH (20:59)
[2018-02-06] MEDS: OxyCODONE HCL/ACETAMINOPHEN 5-325 MG TABLET PO PRN (21:05)
[2018-02-06 23:47] VITALS: BP 115/70
[2018-02-07] MEDS: IPRATROPIUM BROMIDE 0.5 MG/2.5 ML NEB SOLUTION NEB PRN ×4 (01:39→20:42)
[2018-02-07] MEDS: ALBUTEROL SULFATE 2.5 MG/0.5 ML NEB SOLUTION NEB PRN ×4 (01:40→20:42)
[2018-02-07] MEDS: OxyCODONE HCL/ACETAMINOPHEN 5-325 MG TABLET PO PRN ×4 (03:43→20:33)
[2018-02-07 04:46] VITALS: BP 135/75
[2018-02-07] MEDS ORDERED: GuaiFENesin/D-METHORPHAN/PHENYLEPH 5 ML LIQUID ORAL.SYG PO PRN (06:00)
[2018-02-07 06:25] LABS: BASOPHILS % (AUTO) 0.2 % (0.0-2.0); EOSINOPHILS % (AUTO) 0 % (1.0-6.0); HEMATOCRIT 37.8 % (41-53); HEMOGLOBIN 12.9 g/dL (13.5-17.5); LYMPHOCYTES # (AUTO) 0.3 K/uL (1.0-4.8); LYMPHOCYTES % (AUTO) 9.2 % (22.0-44.0); MEAN CORPUSCULAR HEMOGLOBIN 29.9 pg (26.0-34.0); MEAN CORPUSCULAR HGB CONC 34.1 G/dL (31.0-37.0); MEAN CORPUSCULAR VOLUME 88 fL (80-100); MONOCYTES # (AUTO) 0.1 K/uL (0.1-1.0); NEUTROPHILS # (AUTO) 2.4 K/uL (1.8-7.7); PLATELET COUNT (AUTO) 191 K/uL (150-450); RED BLOOD CELL COUNT(AUTO) 4.32 MIL/uL (4.50-5.90); RED CELL DISTRIBUTION WIDTH 17.4 % (11.5-14.5)
[2018-02-07 06:27] LABS: HEMOGLOBIN A1C 5.3 % (4.5-6.2)
[2018-02-07 06:28] LABS: INR 1.1 (0.9-1.1); PROTHROMBIN TIME 11.4 SEC (9.4-11.6)
[2018-02-07 06:55] LABS: NEUTROPHILS % (AUTO) 85.6 % (40.0-70.0)
[2018-02-07 07:03] LABS: ALBUMIN 3.2 g/dL (3.4-5.0); BILIRUBIN,TOTAL 0.4 mg/dL (0.1-1.0); CALCIUM, TOTAL 8.2 mg/dL (8.8-10.5); CREATININE 1.37 mg/dL (0.60-1.30); POTASSIUM 3.7 mmol/L (3.5-5.1); TOTAL PROTEIN, SERUM 6.8 g/dL (6.4-8.2)
[2018-02-07 07:21] LABS: PHOSPHORUS 1.4 mg/dL (2.5-4.9)
[2018-02-07 07:39] VITALS: BP 147/92
[2018-02-07] MEDS: MethylPREDNISolone SOD SUCC 125 MG/2 ML VIAL IVP SCH ×3 (08:54→20:15)
[2018-02-07] MEDS: OMEPRAZOLE 20 MG CAPSULE PO SCH (08:55)
[2018-02-07] MEDS: BENAZEPRIL HCL 20 MG TABLET PO SCH (08:55)
[2018-02-07] MEDS: MONTELUKAST SODIUM 10 MG TABLET PO SCH (08:55)
[2018-02-07] MEDS: ATORVASTATIN CALCIUM 20 MG TABLET PO SCH (08:55)
[2018-02-07] MEDS: HEPARIN SODIUM,PORCINE 5,000 UNITS/ML VIAL SQ SCH ×2 (08:56→20:16)
[2018-02-07] MEDS: AmLODIPine BESYLATE 5 MG TABLET PO SCH (08:56)
[2018-02-07] MEDS ORDERED: SODIUM CHLORIDE 0.9% 500 ML IV ONE (10:47)
[2018-02-07 12:15] VITALS: BP 135/77
[2018-02-07 15:32] VITALS: BP 117/68
[2018-02-07] MEDS: POTASSIUM PHOS/SODIUM PHOS MIXTURE 1 POWDER PACKET PO SCH ×2 (17:11→20:15)
[2018-02-07 19:15] VITALS: BP 144/85
[2018-02-07] MEDS: BENZONATATE 100 MG CAPSULE PO SCH (20:16)
[2018-02-07] MEDS: BUDESONIDE 0.5 MG/2 ML NEB SOLUTION NEB SCH (20:42)
[2018-02-07 23:45] VITALS: BP 139/93
[2018-02-07] MEDS ORDERED: INSULIN LISPRO 100 UNITS/ML SQ PRN (23:45)
[2018-02-07] MEDS ORDERED: DEXTROSE 50%-WATER 25 GM/50 ML SYG IVP PRN (23:45)
[2018-02-07] MEDS ORDERED: GLUCAGON,HUMAN RECOMBINANT 1 MG VIAL IM PRN (23:45)
[2018-02-07] MEDS: INSULIN LISPRO 100 UNITS/ML SQ PRN (23:55)
[2018-02-08] MEDS: OxyCODONE HCL/ACETAMINOPHEN 5-325 MG TABLET PO PRN ×5 (01:06→19:52)
[2018-02-08] MEDS: IPRATROPIUM BROMIDE 0.5 MG/2.5 ML NEB SOLUTION NEB PRN ×3 (02:56→20:21)
[2018-02-08] MEDS: ALBUTEROL SULFATE 2.5 MG/0.5 ML NEB SOLUTION NEB PRN ×3 (02:56→20:21)
[2018-02-08 04:50] VITALS: BP 136/84
[2018-02-08 05:29] LABS: GLUCOMETER DEV NAME(LOC) 6N 2D; GLUCOSE,POINT OF CARE 254 MG/DL (70-110)
[2018-02-08] MEDS: INSULIN LISPRO 100 UNITS/ML SQ PRN ×4 (06:19→21:01)
[2018-02-08 06:25] LABS: GLUCOMETER DEV NAME(LOC) 6N 1E; GLUCOSE,POINT OF CARE 244 MG/DL (70-110)
[2018-02-08 06:27] LABS: ALANINE AMINOTRANSFERASE 49 U/L (12-78); ALKALINE PHOSPHATASE 61 U/L (46-116); ANION GAP 7 mmol/L (8-16); ASPARTATE AMINOTRANSFERASE 16 U/L (15-37); BILIRUBIN,TOTAL 0.2 mg/dL (0.1-1.0); CALCIUM, TOTAL 7.9 mg/dL (8.8-10.5); CARBON DIOXIDE 28 mmol/L (22-29); CHLORIDE 101 mmol/L (98-107); CREATININE 1.06 mg/dL (0.60-1.30); GLOMERULAR FILTR. RATE CALC > 60 mL/min (>60); GLUCOSE,RANDOM 230 mg/dL (70-110); POTASSIUM 4.5 mmol/L (3.5-5.1); SODIUM SERUM 136 mmol/L (136-145); TOTAL PROTEIN, SERUM 6.2 g/dL (6.4-8.2); UREA NITROGEN, BLOOD 10 mg/dL (7-18)
[2018-02-08] MEDS: BUDESONIDE 0.5 MG/2 ML NEB SOLUTION NEB SCH ×2 (07:51→20:21)
[2018-02-08 08:00] VITALS: BP 132/79
[2018-02-08] MEDS: POTASSIUM PHOS/SODIUM PHOS MIXTURE 1 POWDER PACKET PO SCH ×3 (09:25→19:53)
[2018-02-08] MEDS: MethylPREDNISolone SOD SUCC 125 MG/2 ML VIAL IVP SCH (09:25)
[2018-02-08] MEDS: HEPARIN SODIUM,PORCINE 5,000 UNITS/ML VIAL SQ SCH ×2 (09:25→19:51)
[2018-02-08] MEDS: BENZONATATE 100 MG CAPSULE PO SCH ×2 (09:26→19:52)
[2018-02-08] MEDS: AmLODIPine BESYLATE 5 MG TABLET PO SCH (09:26)
[2018-02-08] MEDS: ATORVASTATIN CALCIUM 20 MG TABLET PO SCH (09:26)
[2018-02-08] MEDS: BENAZEPRIL HCL 20 MG TABLET PO SCH (09:27)
[2018-02-08] MEDS: OMEPRAZOLE 20 MG CAPSULE PO SCH (09:27)
[2018-02-08] MEDS: MONTELUKAST SODIUM 10 MG TABLET PO SCH (09:29)
[2018-02-08 15:50] VITALS: BP 130/79
[2018-02-08] MEDS: MethylPREDNISolone SOD SUCC 40 MG/ML VIAL IVP SCH ×2 (16:53→19:51)
[2018-02-08 19:51] VITALS: BP 132/78
[2018-02-08 23:31] VITALS: BP 143/65
[2018-02-09] MEDS: OxyCODONE HCL/ACETAMINOPHEN 5-325 MG TABLET PO PRN ×3 (00:56→14:31)
[2018-02-09] MEDS: IPRATROPIUM BROMIDE 0.5 MG/2.5 ML NEB SOLUTION NEB PRN ×3 (01:34→14:04)
[2018-02-09] MEDS: ALBUTEROL SULFATE 2.5 MG/0.5 ML NEB SOLUTION NEB PRN ×3 (01:34→14:04)
[2018-02-09 04:24] LABS: GLUCOMETER DEV NAME(LOC) 6N 1E; GLUCOSE,POINT OF CARE 234 MG/DL (70-110)
[2018-02-09 04:44] VITALS: BP 129/77
[2018-02-09] MEDS: INSULIN LISPRO 100 UNITS/ML SQ PRN ×2 (05:27→11:42)
[2018-02-09 08:10] VITALS: BP 151/86
[2018-02-09] MEDS: AmLODIPine BESYLATE 5 MG TABLET PO SCH (08:12)
[2018-02-09] MEDS: ATORVASTATIN CALCIUM 20 MG TABLET PO SCH (08:12)
[2018-02-09] MEDS: MONTELUKAST SODIUM 10 MG TABLET PO SCH (08:12)
[2018-02-09] MEDS: BENZONATATE 100 MG CAPSULE PO SCH (08:12)
[2018-02-09] MEDS: BENAZEPRIL HCL 20 MG TABLET PO SCH (08:12)
[2018-02-09] MEDS: OMEPRAZOLE 20 MG CAPSULE PO SCH (08:12)
[2018-02-09] MEDS: POTASSIUM PHOS/SODIUM PHOS MIXTURE 1 POWDER PACKET PO SCH (08:13)
[2018-02-09] MEDS: HEPARIN SODIUM,PORCINE 5,000 UNITS/ML VIAL SQ SCH (08:13)
[2018-02-09] MEDS ORDERED: PredniSONE 20 MG TABLET PO SCH (09:00)
[2018-02-09] MEDS: BUDESONIDE 0.5 MG/2 ML NEB SOLUTION NEB SCH (09:41)
[2018-02-09 10:08] LABS: MAGNESIUM 1.6 mg/dL (1.80-2.40); PHOSPHORUS 3.1 mg/dL (2.5-4.9)
[2018-02-09 11:38] VITALS: BP 139/80
[2018-02-09] MEDS ORDERED: PRED20 PO (15:32)
[2018-02-09] MEDS ORDERED: BENZ-51 PO (15:32)
[2018-02-10 07:09] LABS: GLUCOMETER DEV NAME(LOC) 6N 2D; GLUCOSE,POINT OF CARE 254 MG/DL (70-110)
[2018-02-10 07:09] LABS: GLUCOMETER DEV NAME(LOC) 6N 2D; GLUCOSE,POINT OF CARE 298 MG/DL (70-110)
[2018-02-10 07:09] LABS: GLUCOMETER DEV NAME(LOC) 6N 2D; GLUCOSE,POINT OF CARE 297 MG/DL (70-110)
[2018-02-10 07:09] LABS: GLUCOMETER DEV NAME(LOC) 6N 2D; GLUCOSE,POINT OF CARE 250 MG/DL (70-110)
== END 2018-02-09 17:00 | disposition home or self-care (01) | DRG 191 ==
LOC: EMS 13:53 → 6N 18:31
PROVIDERS: ADMIT Internal Medicine; ATTEND Internal Medicine
DX: J44.1 Chronic obstructive pulmonary disease with (acute) exacerbation (principal); R65.10 Systemic inflammatory response syndrome (SIRS) of non-infectious origin without acute organ dysfunction; J45.901 Unspecified asthma with (acute) exacerbation; E44.1 Mild protein-calorie malnutrition; E83.51 Hypocalcemia; E87.6 Hypokalemia; E83.39 Other disorders of phosphorus metabolism; K21.9 Gastro-esophageal reflux disease without esophagitis; E78.5 Hyperlipidemia, unspecified; E66.01 Morbid (severe) obesity due to excess calories; E78.00 Pure hypercholesterolemia, unspecified; E83.42 Hypomagnesemia; F17.200 Nicotine dependence, unspecified, uncomplicated; Z96.652 Presence of left artificial knee joint; F10.20 Alcohol dependence, uncomplicated; Z80.3 Family history of malignant neoplasm of breast; Z80.42 Family history of malignant neoplasm of prostate; Z82.49 Family history of ischemic heart disease and other diseases of the circulatory system; Z83.3 Family history of diabetes mellitus; Z85.47 Personal history of malignant neoplasm of testis; Z91.018 Allergy to other foods; Z79.82 Long term (current) use of aspirin; Z79.899 Other long term (current) drug therapy; Z72.89 Other problems related to lifestyle; Z68.36 Body mass index [BMI] 36.0-36.9, adult; I10 Essential (primary) hypertension
CPT/HCPCS: 83036; 83735; 84100; 93005; 94640; 94644; 94645; 96374; 96375; 97116; 97161; 99285; J1644; J2270; J2405; J2920; J2930; J3475; J7040

== ENCOUNTER → 2018-02-19 | Outpatient (CLI) | payer MEDICARE, MEDICAID ==
[~2018-02-19] VITALS: Ht 167.6 cm; Wt 102.6 kg
[~2018-02-19] MED LIST changes: +BENZ-51 PO; -CROM10DR2 OU
[2018-02-19 15:51] VITALS: BP 97/67
== END | disposition home or self-care (01) ==
LOC: SRCNTR 15:46
PROVIDERS: ATTEND Internal Medicine Critical Care Medicine
DX: J45.51 Severe persistent asthma with (acute) exacerbation (principal); E66.01 Morbid (severe) obesity due to excess calories; E78.5 Hyperlipidemia, unspecified; I10 Essential (primary) hypertension
CPT/HCPCS: G0463

== ENCOUNTER 2018-03-06 09:29 | Emergency (ER) | payer MEDICARE, MEDICAID ==
[~2018-03-06] VITALS: Ht 167.6 cm; Wt 100.0 kg
[2018-03-06] MEDS ORDERED: IPRATROPIUM BROMIDE 0.5 MG/2.5 ML NEB SOLUTION NEB ONE ×2 (09:45→10:15)
[2018-03-06] MEDS ORDERED: ALBUTEROL SULFATE 2.5 MG/0.5 ML NEB SOLUTION NEB ONE (09:45)
[2018-03-06] MEDS ORDERED: ALBUTEROL SULFATE 5 MG/ML 20 ML NEB SOLN [BULK] NEB ONE ×2 (10:15)
[2018-03-06] MEDS ORDERED: PredniSONE 20 MG TABLET PO ONE (10:15)
[2018-03-06 10:35] LABS: BASOPHILS % (AUTO) 0.7 % (0.0-2.0); EOSINOPHILS % (AUTO) 1.5 % (1.0-6.0); HEMATOCRIT 44.2 % (41-53); HEMOGLOBIN 14.9 g/dL (13.5-17.5); LYMPHOCYTES # (AUTO) 1.7 K/uL (1.0-4.8); MEAN CORPUSCULAR HEMOGLOBIN 29.4 pg (26.0-34.0); MEAN CORPUSCULAR HGB CONC 33.8 G/dL (31.0-37.0); MEAN CORPUSCULAR VOLUME 87 fL (80-100); MONOCYTES # (AUTO) 0.7 K/uL (0.1-1.0); MONOCYTES % (AUTO) 9.7 % (2.0-9.0); NEUTROPHILS # (AUTO) 4.9 K/uL (1.8-7.7); NEUTROPHILS % (AUTO) 65.1 % (40.0-70.0); PLATELET COUNT (AUTO) 252 K/uL (150-450); RED BLOOD CELL COUNT(AUTO) 5.08 MIL/uL (4.50-5.90); RED CELL DISTRIBUTION WIDTH 16.4 % (11.5-14.5)
[2018-03-06 10:42] LABS: ANION GAP 8 mmol/L (8-16); CALCIUM, TOTAL 8.4 mg/dL (8.8-10.5); CARBON DIOXIDE 28 mmol/L (22-29); CHLORIDE 104 mmol/L (98-107); CREATININE 0.91 mg/dL (0.60-1.30); GLOMERULAR FILTR. RATE CALC > 60 mL/min (>60); GLUCOSE,RANDOM 95 mg/dL (70-110); POTASSIUM 3.4 mmol/L (3.5-5.1); SODIUM SERUM 140 mmol/L (136-145); UREA NITROGEN, BLOOD 9 mg/dL (7-18)
[2018-03-06 10:50] LABS: ALANINE AMINOTRANSFERASE 46 U/L (12-78); ALBUMIN 3.6 g/dL (3.4-5.0); ALKALINE PHOSPHATASE 97 U/L (46-116); ASPARTATE AMINOTRANSFERASE 22 U/L (15-37); BILIRUBIN,TOTAL 1.1 mg/dL (0.1-1.0); TOTAL PROTEIN, SERUM 7.2 g/dL (6.4-8.2)
[2018-03-06 11:08] LABS: B-TYPE NATRIURETIC PEPTIDE < 5 pg/mL (0-100)
[2018-03-06 12:30] VITALS: BP 138/86
== END 2018-03-06 12:30 | disposition home or self-care (01) ==
LOC: EMS 09:30
DX: J44.1 Chronic obstructive pulmonary disease with (acute) exacerbation (principal); K21.9 Gastro-esophageal reflux disease without esophagitis; I10 Essential (primary) hypertension; E78.00 Pure hypercholesterolemia, unspecified; Z79.899 Other long term (current) drug therapy; Z88.6 Allergy status to analgesic agent
CPT/HCPCS: 36415; 71045; 80053; 83880; 84484; 85025; 93005; 94644; 99285; J7512; 94640

== ENCOUNTER 2018-04-01 21:44 | Emergency (ER) | payer MEDICARE, MEDICAID ==
[~2018-04-01] VITALS: Ht 167.6 cm; Wt 104.5 kg
[2018-04-01] MEDS ORDERED: PRED10 PO (22:07)
[2018-04-01 22:28] LABS: BASOPHILS % (AUTO) 0.5 % (0.0-2.0); EOSINOPHILS % (AUTO) 0.9 % (1.0-6.0); HEMATOCRIT 41.7 % (41-53); HEMOGLOBIN 13.7 g/dL (13.5-17.5); LYMPHOCYTES # (AUTO) 1.8 K/uL (1.0-4.8); LYMPHOCYTES % (AUTO) 20.2 % (22.0-44.0); MEAN CORPUSCULAR HEMOGLOBIN 29.5 pg (26.0-34.0); MEAN CORPUSCULAR HGB CONC 32.8 G/dL (31.0-37.0); MEAN CORPUSCULAR VOLUME 90 fL (80-100); MONOCYTES % (AUTO) 11.1 % (2.0-9.0); NEUTROPHILS # (AUTO) 5.9 K/uL (1.8-7.7); NEUTROPHILS % (AUTO) 67.3 % (40.0-70.0); PLATELET COUNT (AUTO) 232 K/uL (150-450); RED BLOOD CELL COUNT(AUTO) 4.64 MIL/uL (4.50-5.90)
[2018-04-01 22:37] LABS: ANION GAP 7 mmol/L (8-16); CALCIUM, TOTAL 7.7 mg/dL (8.8-10.5); CARBON DIOXIDE 25 mmol/L (22-29); CHLORIDE 108 mmol/L (98-107); CREATININE 1.05 mg/dL (0.60-1.30); GLOMERULAR FILTR. RATE CALC > 60 mL/min (>60); GLUCOSE,RANDOM 185 mg/dL (70-110); POTASSIUM 3.5 mmol/L (3.5-5.1); SODIUM SERUM 140 mmol/L (136-145); UREA NITROGEN, BLOOD 15 mg/dL (7-18)
[2018-04-01 22:43] LABS: ALANINE AMINOTRANSFERASE 45 U/L (12-78); ALBUMIN 3.4 g/dL (3.4-5.0); ALKALINE PHOSPHATASE 76 U/L (46-116); ASPARTATE AMINOTRANSFERASE 17 U/L (15-37); BILIRUBIN,TOTAL 0.4 mg/dL (0.1-1.0); TOTAL PROTEIN, SERUM 6.2 g/dL (6.4-8.2)
[2018-04-01] MEDS ORDERED: 0.9% SODIUM CHLORIDE 5 ML NEB SOLUTION NEB ONE (22:44)
[2018-04-01 22:53] LABS: SALICYLATE < 2.8 mg/dL (2.8-20.0)
[2018-04-01 22:57] LABS: ACETAMINOPHEN < 2 mcg/mL (10-30)
[2018-04-01] MEDS: ALBUTEROL SULFATE 2.5 MG/0.5 ML NEB SOLUTION NEB ONE (23:01)
[2018-04-02 01:59] VITALS: BP 112/68
[2018-04-05] MEDS ORDERED: FLUT16H NASAL (10:30)
[2018-04-05] MEDS ORDERED: PRED10 PO (10:30)
== END 2018-04-02 02:03 | disposition home or self-care (01) ==
LOC: EMS 21:46
DX: T46.1X1A Poisoning by calcium-channel blockers, accidental (unintentional), initial encounter (principal); J44.9 Chronic obstructive pulmonary disease, unspecified; K21.9 Gastro-esophageal reflux disease without esophagitis; E78.00 Pure hypercholesterolemia, unspecified; I10 Essential (primary) hypertension; Z96.659 Presence of unspecified artificial knee joint; Z88.6 Allergy status to analgesic agent; Y92.89 Other specified places as the place of occurrence of the external cause
CPT/HCPCS: 36415; 80053; 84484; 85025; 93005; 94640; 99285; G0480; G0481

== ENCOUNTER 2018-04-22 20:09 | Emergency (ER) | payer MEDICARE, MEDICAID ==
[~2018-04-22] VITALS: Ht 167.6 cm; Wt 100.0 kg
[~2018-04-22 20:09] MED LIST changes: -BENZ-51 PO; +PRED10 PO; -PRED20 PO
[2018-04-22] MEDS ORDERED: ALBUTEROL SULFATE 5 MG/ML 20 ML NEB SOLN [BULK] NEB ONE ×2 (20:15→21:45)
[2018-04-22] MEDS ORDERED: IPRATROPIUM BROMIDE 0.5 MG/2.5 ML NEB SOLUTION NEB ONE ×3 (20:15→21:45)
[2018-04-22] MEDS ORDERED: 0.9% SODIUM CHLORIDE 5 ML NEB SOLUTION NEB ONE ×2 (20:21→21:35)
[2018-04-22] MEDS ORDERED: PredniSONE 20 MG TABLET PO ONE (22:15)
[2018-04-23 00:31] VITALS: BP 146/88
== END 2018-04-23 00:42 | disposition home or self-care (01) ==
LOC: EMS 20:10
DX: J45.901 Unspecified asthma with (acute) exacerbation (principal); K21.9 Gastro-esophageal reflux disease without esophagitis; E78.00 Pure hypercholesterolemia, unspecified; I10 Essential (primary) hypertension; Z88.6 Allergy status to analgesic agent; Z96.659 Presence of unspecified artificial knee joint
CPT/HCPCS: 71045; 94644; 94645; 99285; J7512

== ENCOUNTER → 2018-05-10 | Outpatient (CLI) | payer MEDICARE, MEDICAID ==
[~2018-05-10] VITALS: Ht 167.6 cm; Wt 119.5 kg
[2018-05-10 10:14] VITALS: BP 104/62
== END | disposition home or self-care (01) ==
LOC: SRCNTR 09:46
PROVIDERS: ATTEND Hospitalist
DX: E78.5 Hyperlipidemia, unspecified (principal); J45.909 Unspecified asthma, uncomplicated; I10 Essential (primary) hypertension; H57.10 Ocular pain, unspecified eye
CPT/HCPCS: G0463

== ENCOUNTER 2018-07-11 18:43 | Inpatient (IN) | payer MEDICARE, MEDICAID ==
[~2018-07-11] VITALS: Ht 170.2 cm; Wt 121.5 kg
[2018-07-11] MEDS ORDERED: 0.9% SODIUM CHLORIDE 5 ML NEB SOLUTION NEB ONE ×2 (18:55→20:17)
[2018-07-11] MEDS ORDERED: IPRATROPIUM BROMIDE 0.5 MG/2.5 ML NEB SOLUTION NEB ONE ×2 (19:00→20:30)
[2018-07-11] MEDS ORDERED: ALBUTEROL SULFATE 5 MG/ML 20 ML NEB SOLN [BULK] NEB ONE (19:00)
[2018-07-11] MEDS ORDERED: MethylPREDNISolone SOD SUCC 125 MG/2 ML VIAL IVP ONE (19:15)
[2018-07-11 19:56] LABS: BASOPHILS % (AUTO) 0.8 % (0.0-2.0); EOSINOPHILS % (AUTO) 1.4 % (1.0-6.0); HEMATOCRIT 40.3 % (41-53); HEMOGLOBIN 13.4 g/dL (13.5-17.5); LYMPHOCYTES # (AUTO) 1.3 K/uL (1.0-4.8); LYMPHOCYTES % (AUTO) 19.4 % (22.0-44.0); MEAN CORPUSCULAR HEMOGLOBIN 28.6 pg (26.0-34.0); MEAN CORPUSCULAR HGB CONC 33.1 G/dL (31.0-37.0); MEAN CORPUSCULAR VOLUME 86 fL (80-100); MONOCYTES # (AUTO) 0.8 K/uL (0.1-1.0); MONOCYTES % (AUTO) 12.3 % (2.0-9.0); NEUTROPHILS # (AUTO) 4.4 K/uL (1.8-7.7); NEUTROPHILS % (AUTO) 66.1 % (40.0-70.0); PLATELET COUNT (AUTO) 286 K/uL (150-450); RED BLOOD CELL COUNT(AUTO) 4.67 MIL/uL (4.50-5.90); RED CELL DISTRIBUTION WIDTH 14.2 % (11.5-14.5)
[2018-07-11] MEDS ORDERED: ACETAMINOPHEN 500 MG TABLET PO ONE (20:15)
[2018-07-11 20:17] LABS: ALANINE AMINOTRANSFERASE 55 U/L (12-78); ALBUMIN 3.4 g/dL (3.4-5.0); ALKALINE PHOSPHATASE 78 U/L (46-116); ANION GAP 10 mmol/L (8-16); ASPARTATE AMINOTRANSFERASE 31 U/L (15-37); BILIRUBIN,TOTAL 0.4 mg/dL (0.1-1.0); CALCIUM, TOTAL 8.2 mg/dL (8.8-10.5); CARBON DIOXIDE 27 mmol/L (22-29); CHLORIDE 104 mmol/L (98-107); CREATINE KINASE, TOTAL ONLY 167 U/L (39-308); CREATININE 1.02 mg/dL (0.60-1.30); GLOMERULAR FILTR. RATE CALC > 60 mL/min (>60); GLUCOSE,RANDOM 143 mg/dL (70-110); SODIUM SERUM 141 mmol/L (136-145); TOTAL PROTEIN, SERUM 6.8 g/dL (6.4-8.2); UREA NITROGEN, BLOOD 13 mg/dL (7-18)
[2018-07-11 20:22] LABS: B-TYPE NATRIURETIC PEPTIDE 62 pg/mL (0-100)
[2018-07-11 20:27] LABS: POTASSIUM 2.9 mmol/L (3.5-5.1)
[2018-07-11] MEDS ORDERED: LEVALBUTEROL HCL 1.25 MG/0.5 ML NEB SOLUTION NEB ONE (20:30)
[2018-07-11] MEDS ORDERED: ONDANSETRON HCL 4 MG/2 ML VIAL IVP PRN ×2 (21:00→21:45)
[2018-07-11] MEDS ORDERED: ACETAMINOPHEN 325 MG TABLET PO PRN ×2 (21:00→21:45)
[2018-07-11] MEDS ORDERED: 0.9% SODIUM CHLORIDE 10 ML SYRINGE IVP PRN (21:00)
[2018-07-11] MEDS ORDERED: POTASSIUM CHLORIDE 20 MEQ ER TABLET PO ONE ×2 (21:45)
[2018-07-11] MEDS ORDERED: POTASSIUM CHL 10 MEQ/WATER 50 ML IV PRN (21:45)
[2018-07-11] MEDS ORDERED: ZOLPIDEM TARTRATE 5 MG TABLET PO PRN (21:45)
[2018-07-11] MEDS ORDERED: ALBUTEROL SULFATE 2.5 MG/0.5 ML NEB SOLUTION NEB PRN (21:45)
[2018-07-11] MEDS ORDERED: POTASSIUM CHLORIDE 20 MEQ ER TABLET PO PRN (21:45)
[2018-07-11] MEDS ORDERED: CloNIDine HCL 0.1 MG TABLET PO SCH (21:45)
[2018-07-11] MEDS ORDERED: MAGNESIUM HYDROXIDE SUSPENSION 30 ML UDCUP PO PRN (21:45)
[2018-07-11] MEDS ORDERED: IPRATROPIUM BROMIDE 0.5 MG/2.5 ML NEB SOLUTION NEB PRN (21:45)
[2018-07-11] MEDS ORDERED: BISACODYL 10 MG RECTAL RECTAL SUPPOSITORY PR PRN (21:45)
[2018-07-11] MEDS ORDERED: CefTRIAXone 1 GM/DEXTROSE 50 ML IV SCH (22:00)
[2018-07-11 22:01] LABS: ABG METHEMOGLOBIN 0.1 % (0.0-1.5); SOURCE, BLOOD GAS ARTERIAL; TEMPERATURE, FAHRENHEIT, BG 98.6 FAHREN (96.0-98.6)
[2018-07-11 22:16] LABS: ABG A-A DIFF O2 84.5 mmHg (10-20.0); ABG BASE EXCESS -3.9 mmol/L (-2.0-3.0); ABG CARBOXYHEMOGLOBIN 0.7 % (0.0-1.5); ABG HCO3 21.8 mmol/L (22.0-26.0); ABG OXYGEN CONTENT 19.8 mL/dL (15.0-23.0); ABG OXYGEN SATURATION 97.9 % (95.0-98.0); ABG OXYHEMOGLOBIN 97.1 % (94.0-100.0); ABG PCO2 36 mmHg (35-45); ABG PH 7.389 (7.35-7.450); ABG TOTAL HEMOGLOBIN 14.4 G/dL (12.0-18.0); PO2, ARTERIAL BG 101.9 mmHg (84.0-92.0)
[2018-07-11 22:17] LABS: O2 DEVICE,BLOOD GAS CANNULA (ROOM AIR); SITE, BLOOD GAS LFT RADIAL
[2018-07-11 22:45] VITALS: BP 142/91
[2018-07-11] MEDS ORDERED: AZITHROMYCIN 500 MG/NS 250 ML IV SCH (23:00)
[2018-07-11] MEDS: HEPARIN SODIUM,PORCINE 5,000 UNITS/ML VIAL SQ SCH (23:17)
[2018-07-11] MEDS: MethylPREDNISolone SOD SUCC 125 MG/2 ML VIAL IVP SCH (23:17)
[2018-07-11] MEDS: HYDROCODONE/ACETAMINOPHEN 5-325 MG TABLET PO PRN (23:17)
[2018-07-12] VITALS (8 sets, daily range): BP systolic 135–163; BP diastolic 70–96
[2018-07-12] MEDS ORDERED: MethylPREDNISolone SOD SUCC 125 MG/2 ML VIAL IVP SCH
[2018-07-12] MEDS: ALBUTEROL SULFATE 2.5 MG/0.5 ML NEB SOLUTION NEB SCH ×4 (01:46→19:20)
[2018-07-12] MEDS: IPRATROPIUM BROMIDE 0.5 MG/2.5 ML NEB SOLUTION NEB SCH ×4 (01:46→19:20)
[2018-07-12] MEDS ORDERED: IPRATROPIUM BROMIDE 0.5 MG/2.5 ML NEB SOLUTION NEB SCH (02:00)
[2018-07-12] MEDS ORDERED: ALBUTEROL SULFATE 2.5 MG/0.5 ML NEB SOLUTION NEB SCH (02:00)
[2018-07-12] MEDS: HYDROCODONE/ACETAMINOPHEN 5-325 MG TABLET PO PRN ×2 (05:46→11:55)
[2018-07-12] MEDS: MethylPREDNISolone SOD SUCC 125 MG/2 ML VIAL IVP SCH ×4 (05:46→23:44)
[2018-07-12 06:07] LABS: BASOPHILS % (AUTO) 0.2 % (0.0-2.0); EOSINOPHILS % (AUTO) 0 % (1.0-6.0); HEMATOCRIT 39.2 % (41-53); LYMPHOCYTES # (AUTO) 0.2 K/uL (1.0-4.8); LYMPHOCYTES % (AUTO) 4.1 % (22.0-44.0); MEAN CORPUSCULAR HEMOGLOBIN 28.8 pg (26.0-34.0); MEAN CORPUSCULAR HGB CONC 33.1 G/dL (31.0-37.0); MEAN CORPUSCULAR VOLUME 87 fL (80-100); MONOCYTES # (AUTO) 0.1 K/uL (0.1-1.0); MONOCYTES % (AUTO) 1.1 % (2.0-9.0); NEUTROPHILS # (AUTO) 4.7 K/uL (1.8-7.7); PLATELET COUNT (AUTO) 241 K/uL (150-450); RED BLOOD CELL COUNT(AUTO) 4.51 MIL/uL (4.50-5.90); RED CELL DISTRIBUTION WIDTH 14.1 % (11.5-14.5)
[2018-07-12 06:25] LABS: NEUTROPHILS % (AUTO) 94.6 % (40.0-70.0)
[2018-07-12 06:33] LABS: ALANINE AMINOTRANSFERASE 48 U/L (12-78); ALBUMIN 3.5 g/dL (3.4-5.0); ALKALINE PHOSPHATASE 72 U/L (46-116); ANION GAP 14 mmol/L (8-16); ASPARTATE AMINOTRANSFERASE 23 U/L (15-37); BILIRUBIN,TOTAL 0.3 mg/dL (0.1-1.0); CALCIUM, TOTAL 8.4 mg/dL (8.8-10.5); CARBON DIOXIDE 21 mmol/L (22-29); CHLORIDE 102 mmol/L (98-107); CREATININE 1.15 mg/dL (0.60-1.30); GLOMERULAR FILTR. RATE CALC > 60 mL/min (>60); GLUCOSE,RANDOM 332 mg/dL (70-110); POTASSIUM 3.6 mmol/L (3.5-5.1); SODIUM SERUM 137 mmol/L (136-145); TOTAL PROTEIN, SERUM 6.6 g/dL (6.4-8.2); UREA NITROGEN, BLOOD 11 mg/dL (7-18)
[2018-07-12] MEDS: BENZONATATE 100 MG CAPSULE PO SCH ×3 (08:49→20:28)
[2018-07-12] MEDS: FLUTICASONE PROPIONATE 50 MCG/SPRAY 16 GM NASAL SPRAY NASAL SCH ×2 (08:49→20:27)
[2018-07-12] MEDS: GuaiFENesin SR 600 MG ER TABLET PO SCH ×2 (08:49→20:28)
[2018-07-12] MEDS: HEPARIN SODIUM,PORCINE 5,000 UNITS/ML VIAL SQ SCH ×3 (08:49→23:44)
[2018-07-12] MEDS: BENAZEPRIL HCL 20 MG TABLET PO SCH (08:49)
[2018-07-12] MEDS: DOCUSATE SODIUM 100 MG CAPSULE PO SCH ×2 (08:49→20:27)
[2018-07-12] MEDS: MONTELUKAST SODIUM 10 MG TABLET PO SCH (08:50)
[2018-07-12] MEDS: PANTOPRAZOLE SODIUM 40 MG DR TABLET PO SCH (08:50)
[2018-07-12] MEDS: AmLODIPine BESYLATE 5 MG TABLET PO SCH (08:50)
[2018-07-12] MEDS: ATORVASTATIN CALCIUM 20 MG TABLET PO SCH (08:50)
[2018-07-12] MEDS ORDERED: CloNIDine HCL 0.1 MG TABLET PO PRN ×2 (11:45)
[2018-07-12] MEDS: MORPHINE SULFATE 2 MG/ML SYRINGE IVP PRN ×2 (15:31→20:28)
[2018-07-12] MEDS ORDERED: DEXTROSE 50%-WATER 25 GM/50 ML SYRINGE IVP PRN (20:45)
[2018-07-13] MEDS: MORPHINE SULFATE 2 MG/ML SYRINGE IVP PRN ×3 (00:39→09:19)
[2018-07-13] MEDS: ALBUTEROL SULFATE 2.5 MG/0.5 ML NEB SOLUTION NEB SCH ×6 (01:05→23:03)
[2018-07-13] MEDS: IPRATROPIUM BROMIDE 0.5 MG/2.5 ML NEB SOLUTION NEB SCH ×6 (01:06→23:03)
[2018-07-13 01:45] VITALS: BP 145/78
[2018-07-13 04:58] VITALS: BP 144/85
[2018-07-13] MEDS: MethylPREDNISolone SOD SUCC 125 MG/2 ML VIAL IVP SCH ×4 (05:19→23:52)
[2018-07-13 05:44] LABS: GLUCOMETER DEV NAME(LOC) 5S.2; GLUCOSE,POINT OF CARE 250 MG/DL (70-110)
[2018-07-13] MEDS: INSULIN REGULAR, HUMAN 100 UNITS/ML SQ PRN ×3 (06:05→17:20)
[2018-07-13 06:10] LABS: BASOPHILS % (AUTO) 0.1 % (0.0-2.0); EOSINOPHILS % (AUTO) 0 % (1.0-6.0); HEMATOCRIT 37.4 % (41-53); HEMOGLOBIN 12.8 g/dL (13.5-17.5); LYMPHOCYTES # (AUTO) 0.3 K/uL (1.0-4.8); LYMPHOCYTES % (AUTO) 4.5 % (22.0-44.0); MEAN CORPUSCULAR HEMOGLOBIN 29.2 pg (26.0-34.0); MEAN CORPUSCULAR HGB CONC 34.3 G/dL (31.0-37.0); MEAN CORPUSCULAR VOLUME 85 fL (80-100); MONOCYTES # (AUTO) 0.4 K/uL (0.1-1.0); NEUTROPHILS # (AUTO) 6.9 K/uL (1.8-7.7); PLATELET COUNT (AUTO) 261 K/uL (150-450); RED BLOOD CELL COUNT(AUTO) 4.39 MIL/uL (4.50-5.90); RED CELL DISTRIBUTION WIDTH 14.3 % (11.5-14.5)
[2018-07-13 06:13] LABS: NEUTROPHILS % (AUTO) 90.4 % (40.0-70.0)
[2018-07-13 06:15] LABS: HEMOGLOBIN A1C 5.9 % (4.5-6.2)
[2018-07-13 06:26] LABS: ALANINE AMINOTRANSFERASE 39 U/L (12-78); ALBUMIN 3.4 g/dL (3.4-5.0); ALKALINE PHOSPHATASE 65 U/L (46-116); ANION GAP 10 mmol/L (8-16); ASPARTATE AMINOTRANSFERASE 19 U/L (15-37); BILIRUBIN,TOTAL 0.3 mg/dL (0.1-1.0); CALCIUM, TOTAL 8.4 mg/dL (8.8-10.5); CARBON DIOXIDE 25 mmol/L (22-29); CHLORIDE 102 mmol/L (98-107); CREATININE 0.92 mg/dL (0.60-1.30); GLOMERULAR FILTR. RATE CALC > 60 mL/min (>60); GLUCOSE,RANDOM 252 mg/dL (70-110); POTASSIUM 4.1 mmol/L (3.5-5.1); SODIUM SERUM 137 mmol/L (136-145); TOTAL PROTEIN, SERUM 6.6 g/dL (6.4-8.2); UREA NITROGEN, BLOOD 14 mg/dL (7-18)
[2018-07-13 07:30] VITALS: BP 151/89
[2018-07-13] MEDS: GuaiFENesin SR 600 MG ER TABLET PO SCH ×2 (08:02→19:50)
[2018-07-13] MEDS: PANTOPRAZOLE SODIUM 40 MG DR TABLET PO SCH (08:02)
[2018-07-13] MEDS: AmLODIPine BESYLATE 5 MG TABLET PO SCH (08:02)
[2018-07-13] MEDS: FLUTICASONE PROPIONATE 50 MCG/SPRAY 16 GM NASAL SPRAY NASAL SCH ×2 (08:02→19:52)
[2018-07-13] MEDS: BENAZEPRIL HCL 20 MG TABLET PO SCH (08:02)
[2018-07-13] MEDS: ATORVASTATIN CALCIUM 20 MG TABLET PO SCH (08:02)
[2018-07-13] MEDS: MONTELUKAST SODIUM 10 MG TABLET PO SCH (08:02)
[2018-07-13] MEDS: HEPARIN SODIUM,PORCINE 5,000 UNITS/ML VIAL SQ SCH ×3 (08:02→23:52)
[2018-07-13] MEDS: BENZONATATE 100 MG CAPSULE PO SCH ×3 (08:02→19:49)
[2018-07-13] MEDS: DOCUSATE SODIUM 100 MG CAPSULE PO SCH ×2 (08:02→19:50)
[2018-07-13 11:19] LABS: GLUCOMETER DEV NAME(LOC) 5S.2; GLUCOSE,POINT OF CARE 307 MG/DL (70-110)
[2018-07-13 11:56] VITALS: BP 147/80
[2018-07-13] MEDS: HYDROCODONE/ACETAMINOPHEN 5-325 MG TABLET PO PRN ×3 (13:34→23:55)
[2018-07-13 15:58] VITALS: BP 139/86
[2018-07-13 17:24] LABS: GLUCOMETER DEV NAME(LOC) 5S.2; GLUCOSE,POINT OF CARE 349 MG/DL (70-110)
[2018-07-13 20:15] VITALS: BP 145/82
[2018-07-13] MEDS ORDERED: DEXTROSE 50%-WATER 25 GM/50 ML SYRINGE IVP PRN (21:00)
[2018-07-13] MEDS ORDERED: INSULIN LISPRO 100 UNITS/ML SQ ONE (21:00)
[2018-07-14] VITALS (7 sets, daily range): BP systolic 128–158; BP diastolic 77–89
[2018-07-14 00:24] LABS: GLUCOMETER DEV NAME(LOC) 5N.2; GLUCOSE,POINT OF CARE 408 MG/DL (70-110)
[2018-07-14] MEDS: ALBUTEROL SULFATE 2.5 MG/0.5 ML NEB SOLUTION NEB SCH ×6 (02:44→23:05)
[2018-07-14] MEDS: IPRATROPIUM BROMIDE 0.5 MG/2.5 ML NEB SOLUTION NEB SCH ×6 (02:44→23:05)
[2018-07-14] MEDS: MethylPREDNISolone SOD SUCC 125 MG/2 ML VIAL IVP SCH ×2 (05:34→12:23)
[2018-07-14] MEDS: HYDROCODONE/ACETAMINOPHEN 5-325 MG TABLET PO PRN ×4 (05:34→22:09)
[2018-07-14] MEDS: INSULIN LISPRO 100 UNITS/ML SQ PRN ×4 (05:35→20:56)
[2018-07-14 05:37] LABS: BASOPHILS % (AUTO) 0.1 % (0.0-2.0); EOSINOPHILS % (AUTO) 0 % (1.0-6.0); HEMATOCRIT 36.5 % (41-53); LYMPHOCYTES # (AUTO) 0.2 K/uL (1.0-4.8); LYMPHOCYTES % (AUTO) 3.1 % (22.0-44.0); MEAN CORPUSCULAR HEMOGLOBIN 28.3 pg (26.0-34.0); MEAN CORPUSCULAR HGB CONC 32.8 G/dL (31.0-37.0); MEAN CORPUSCULAR VOLUME 86 fL (80-100); MONOCYTES # (AUTO) 0.3 K/uL (0.1-1.0); NEUTROPHILS # (AUTO) 6.9 K/uL (1.8-7.7); PLATELET COUNT (AUTO) 264 K/uL (150-450); RED BLOOD CELL COUNT(AUTO) 4.25 MIL/uL (4.50-5.90)
[2018-07-14 05:50] LABS: NEUTROPHILS % (AUTO) 92.8 % (40.0-70.0)
[2018-07-14 05:52] LABS: ALANINE AMINOTRANSFERASE 39 U/L (12-78); ALBUMIN 3.3 g/dL (3.4-5.0); ALKALINE PHOSPHATASE 58 U/L (46-116); ANION GAP 10 mmol/L (8-16); ASPARTATE AMINOTRANSFERASE 18 U/L (15-37); BILIRUBIN,TOTAL 0.3 mg/dL (0.1-1.0); CALCIUM, TOTAL 7.9 mg/dL (8.8-10.5); CARBON DIOXIDE 28 mmol/L (22-29); CHLORIDE 103 mmol/L (98-107); GLOMERULAR FILTR. RATE CALC > 60 mL/min (>60); GLUCOSE,RANDOM 262 mg/dL (70-110); POTASSIUM 3.7 mmol/L (3.5-5.1); SODIUM SERUM 141 mmol/L (136-145); TOTAL PROTEIN, SERUM 6.2 g/dL (6.4-8.2); UREA NITROGEN, BLOOD 16 mg/dL (7-18)
[2018-07-14] MEDS: HEPARIN SODIUM,PORCINE 5,000 UNITS/ML VIAL SQ SCH ×3 (08:44→23:53)
[2018-07-14] MEDS: FLUTICASONE PROPIONATE 50 MCG/SPRAY 16 GM NASAL SPRAY NASAL SCH ×2 (08:44→20:55)
[2018-07-14] MEDS: BENAZEPRIL HCL 20 MG TABLET PO SCH (08:44)
[2018-07-14] MEDS: ATORVASTATIN CALCIUM 20 MG TABLET PO SCH (08:44)
[2018-07-14] MEDS: DOCUSATE SODIUM 100 MG CAPSULE PO SCH ×2 (08:44→20:55)
[2018-07-14] MEDS: GuaiFENesin SR 600 MG ER TABLET PO SCH ×2 (08:45→20:55)
[2018-07-14] MEDS: PANTOPRAZOLE SODIUM 40 MG DR TABLET PO SCH (08:45)
[2018-07-14] MEDS: AmLODIPine BESYLATE 5 MG TABLET PO SCH (08:45)
[2018-07-14] MEDS: BENZONATATE 100 MG CAPSULE PO SCH ×3 (08:45→20:55)
[2018-07-14] MEDS: MONTELUKAST SODIUM 10 MG TABLET PO SCH (08:45)
[2018-07-14 09:48] LABS: GLUCOMETER DEV NAME(LOC) 5N.2; GLUCOSE,POINT OF CARE 270 MG/DL (70-110)
[2018-07-14 14:04] LABS: GLUCOMETER DEV NAME(LOC) 5S.2; GLUCOSE,POINT OF CARE 324 MG/DL (70-110)
[2018-07-14 17:28] LABS: GLUCOMETER DEV NAME(LOC) 5S.2; GLUCOSE,POINT OF CARE 320 MG/DL (70-110)
[2018-07-14] MEDS ORDERED: 4 IVP SCH (18:00)
[2018-07-14 20:09] LABS: GLUCOMETER DEV NAME(LOC) 5S.2; GLUCOSE,POINT OF CARE 332 MG/DL (70-110)
[2018-07-14] MEDS ORDERED: PredniSONE 20 MG TABLET PO ONE (21:30)
[2018-07-15] MEDS: HYDROCODONE/ACETAMINOPHEN 5-325 MG TABLET PO PRN ×3 (02:15→11:00)
[2018-07-15] MEDS: ALBUTEROL SULFATE 2.5 MG/0.5 ML NEB SOLUTION NEB SCH ×3 (02:50→11:07)
[2018-07-15] MEDS: IPRATROPIUM BROMIDE 0.5 MG/2.5 ML NEB SOLUTION NEB SCH ×3 (02:50→11:07)
[2018-07-15 04:08] VITALS: BP 146/87
[2018-07-15 07:45] VITALS: BP 151/92
[2018-07-15] MEDS: FLUTICASONE PROPIONATE 50 MCG/SPRAY 16 GM NASAL SPRAY NASAL SCH (08:56)
[2018-07-15] MEDS: BENZONATATE 100 MG CAPSULE PO SCH (08:56)
[2018-07-15] MEDS: BENAZEPRIL HCL 20 MG TABLET PO SCH (08:57)
[2018-07-15] MEDS: AmLODIPine BESYLATE 5 MG TABLET PO SCH (08:57)
[2018-07-15] MEDS: DOCUSATE SODIUM 100 MG CAPSULE PO SCH (08:57)
[2018-07-15] MEDS: HEPARIN SODIUM,PORCINE 5,000 UNITS/ML VIAL SQ SCH (08:57)
[2018-07-15] MEDS: MONTELUKAST SODIUM 10 MG TABLET PO SCH (08:57)
[2018-07-15] MEDS: ATORVASTATIN CALCIUM 20 MG TABLET PO SCH (08:57)
[2018-07-15] MEDS: PANTOPRAZOLE SODIUM 40 MG DR TABLET PO SCH (08:57)
[2018-07-15] MEDS: GuaiFENesin SR 600 MG ER TABLET PO SCH (08:57)
[2018-07-15] MEDS ORDERED: PredniSONE 20 MG TABLET PO SCH (09:00)
[2018-07-15] MEDS ORDERED: BENZ-51 PO (10:23)
[2018-07-15] MEDS ORDERED: ALBU8HFA IH (10:24)
[2018-07-15] MEDS ORDERED: GUAIF600 PO (10:24)
[2018-07-15] MEDS ORDERED: PRED10 PO (10:25)
== END 2018-07-15 12:40 | disposition home or self-care (01) | DRG 189 ==
LOC: EMS 18:45 → 5N 21:30
PROVIDERS: ADMIT Internal Medicine; ATTEND Internal Medicine
DX: J96.00 Acute respiratory failure, unspecified whether with hypoxia or hypercapnia (principal); J45.901 Unspecified asthma with (acute) exacerbation; Z68.41 Body mass index [BMI] 40.0-44.9, adult; E87.6 Hypokalemia; E66.9 Obesity, unspecified; I10 Essential (primary) hypertension; E78.5 Hyperlipidemia, unspecified; Z88.5 Allergy status to narcotic agent; E78.00 Pure hypercholesterolemia, unspecified; Z96.659 Presence of unspecified artificial knee joint; K21.9 Gastro-esophageal reflux disease without esophagitis; T38.0X5A Adverse effect of glucocorticoids and synthetic analogues, initial encounter; Y92.89 Other specified places as the place of occurrence of the external cause; R73.9 Hyperglycemia, unspecified
CPT/HCPCS: 36600; 82805; 83036; 93005; 94640; 94644; 96374; G0378; J1644; J1815; J2270; J2920; J2930

== ENCOUNTER → 2018-07-19 | Outpatient (CLI) | payer MEDICARE, MEDICAID ==
[~2018-07-19] VITALS: Ht 167.6 cm; Wt 117.5 kg
[~2018-07-19] MED LIST changes: +BENZ-51 PO; +GUAIF600 PO
[2018-07-19 08:27] VITALS: BP 140/88
== END | disposition home or self-care (01) ==
LOC: SRCNTR 08:11
PROVIDERS: ATTEND Hospitalist
DX: J45.909 Unspecified asthma, uncomplicated (principal); E78.5 Hyperlipidemia, unspecified; I10 Essential (primary) hypertension; E66.9 Obesity, unspecified; K21.9 Gastro-esophageal reflux disease without esophagitis
CPT/HCPCS: G0463

== ENCOUNTER 2018-09-06 13:57 | Emergency (ER) | payer MEDICARE, MEDICAID ==
[~2018-09-06] VITALS: Ht 167.6 cm; Wt 104.5 kg
[2018-09-06] MEDS ORDERED: 0.9% SODIUM CHLORIDE 15 ML NEB SOLUTION NEB ONE (14:13)
[2018-09-06] MEDS ORDERED: IPRATROPIUM BROMIDE 0.5 MG/2.5 ML NEB SOLUTION NEB ONE ×2 (14:15→15:50)
[2018-09-06] MEDS ORDERED: ALBUTEROL SULFATE 5 MG/ML 20 ML NEB SOLN [BULK] NEB ONE ×2 (14:15→15:50)
[2018-09-06] MEDS ORDERED: MethylPREDNISolone SOD SUCC 125 MG/2 ML VIAL IM ONE (14:45)
[2018-09-06] MEDS ORDERED: 0.9% SODIUM CHLORIDE 5 ML NEB SOLUTION NEB ONE (15:46)
[2018-09-06 18:10] VITALS: BP 112/77
== END 2018-09-06 18:12 | disposition home or self-care (01) ==
LOC: EMS 14:00
DX: J45.901 Unspecified asthma with (acute) exacerbation (principal); E78.00 Pure hypercholesterolemia, unspecified; I10 Essential (primary) hypertension; K21.9 Gastro-esophageal reflux disease without esophagitis; F10.20 Alcohol dependence, uncomplicated; Z96.659 Presence of unspecified artificial knee joint; Z79.899 Other long term (current) drug therapy; Z88.6 Allergy status to analgesic agent; Z88.8 Allergy status to other drugs, medicaments and biological substances
CPT/HCPCS: 94644; 94645; 96372; 99285; J2930

== ENCOUNTER 2018-09-18 21:44 | Emergency (ER) | payer MEDICARE, MEDICAID ==
[~2018-09-18] VITALS: Ht 167.6 cm; Wt 104.5 kg
[2018-09-18] MEDS ORDERED: IPRATROPIUM BROMIDE 0.5 MG/2.5 ML NEB SOLUTION NEB ONE ×3 (22:00→23:15)
[2018-09-18] MEDS ORDERED: ALBUTEROL SULFATE 5 MG/ML 20 ML NEB SOLN [BULK] NEB ONE ×2 (22:00→23:15)
[2018-09-18] MEDS ORDERED: ALBUTEROL SULFATE 2.5 MG/0.5 ML NEB SOLUTION NEB ONE (22:00)
[2018-09-18] MEDS ORDERED: CefTRIAXone 1 GM/DEXTROSE 50 ML IV ONE (23:15)
[2018-09-18] MEDS ORDERED: MethylPREDNISolone SOD SUCC 125 MG/2 ML VIAL IVP ONE (23:15)
[2018-09-18 23:26] LABS: BASOPHILS % (AUTO) 0.5 % (0.0-2.0); EOSINOPHILS % (AUTO) 1.1 % (1.0-6.0); HEMATOCRIT 42.3 % (41-53); HEMOGLOBIN 13.9 g/dL (13.5-17.5); LYMPHOCYTES # (AUTO) 1.5 K/uL (1.0-4.8); LYMPHOCYTES % (AUTO) 21.3 % (22.0-44.0); MEAN CORPUSCULAR HEMOGLOBIN 28.6 pg (26.0-34.0); MEAN CORPUSCULAR HGB CONC 32.9 G/dL (31.0-37.0); MEAN CORPUSCULAR VOLUME 87 fL (80-100); MONOCYTES # (AUTO) 0.6 K/uL (0.1-1.0); MONOCYTES % (AUTO) 8.9 % (2.0-9.0); NEUTROPHILS # (AUTO) 4.7 K/uL (1.8-7.7); NEUTROPHILS % (AUTO) 68.2 % (40.0-70.0); PLATELET COUNT (AUTO) 206 K/uL (150-450); RED BLOOD CELL COUNT(AUTO) 4.86 MIL/uL (4.50-5.90); RED CELL DISTRIBUTION WIDTH 15.3 % (11.5-14.5)
[2018-09-18 23:48] LABS: ANION GAP 9 mmol/L (8-16); CALCIUM, TOTAL 8.8 mg/dL (8.8-10.5); CARBON DIOXIDE 28 mmol/L (22-29); CHLORIDE 105 mmol/L (98-107); CREATININE 1.01 mg/dL (0.60-1.30); GLOMERULAR FILTR. RATE CALC > 60 mL/min (>60); GLUCOSE,RANDOM 166 mg/dL (70-110); POTASSIUM 3.3 mmol/L (3.5-5.1); SODIUM SERUM 142 mmol/L (136-145); UREA NITROGEN, BLOOD 12 mg/dL (7-18)
[2018-09-18 23:54] LABS: B-TYPE NATRIURETIC PEPTIDE 21 pg/mL (0-100)
[2018-09-18 23:55] LABS: ALANINE AMINOTRANSFERASE 63 U/L (12-78); ALBUMIN 3.3 g/dL (3.4-5.0); ALKALINE PHOSPHATASE 79 U/L (46-116); ASPARTATE AMINOTRANSFERASE 24 U/L (15-37); BILIRUBIN,TOTAL 0.4 mg/dL (0.1-1.0); LACTIC ACID 1.5 mmol/L (0.4-2.0); TOTAL PROTEIN, SERUM 6.7 g/dL (6.4-8.2)
[2018-09-19 00:11] LABS: INFLUENZA TYPE A NEGATIVE FOR TYPE A (NEGATIVE); INFLUENZA TYPE B NEGATIVE FOR TYPE B (NEGATIVE)
[2018-09-19 00:40] VITALS: BP 142/86
[2018-09-21] MEDS ORDERED: BUDE10.2 IH (14:36)
== END 2018-09-19 01:18 | disposition home or self-care (01) ==
LOC: EMS 21:45
DX: J44.1 Chronic obstructive pulmonary disease with (acute) exacerbation (principal); J40 Bronchitis, not specified as acute or chronic; E78.00 Pure hypercholesterolemia, unspecified; I10 Essential (primary) hypertension; K21.9 Gastro-esophageal reflux disease without esophagitis; F10.20 Alcohol dependence, uncomplicated; Z79.899 Other long term (current) drug therapy; Z88.6 Allergy status to analgesic agent; Z88.8 Allergy status to other drugs, medicaments and biological substances; Z96.659 Presence of unspecified artificial knee joint
CPT/HCPCS: 36415; 71046; 80053; 83605; 83880; 84484; 85025; 87040; 87804; 94640; 94644; 94645; 96365; 96375; 99285; G0480; J0696; J2930

== ENCOUNTER → 2018-10-05 | Outpatient (CLI) | payer MEDICARE, MEDICAID ==
[~2018-10-05] MED LIST changes: -BENZ-51 PO; +BUDE10.2 IH; -GUAIF600 PO; -PRED10 PO
[2018-10-05 12:47] LABS: BASOPHILS % (AUTO) 0.3 % (0.0-2.0); EOSINOPHILS % (AUTO) 0.1 % (1.0-6.0); HEMATOCRIT 45.8 % (41-53); HEMOGLOBIN 14.7 g/dL (13.5-17.5); LYMPHOCYTES # (AUTO) 1.1 K/uL (1.0-4.8); LYMPHOCYTES % (AUTO) 10.8 % (22.0-44.0); MEAN CORPUSCULAR HEMOGLOBIN 29.2 pg (26.0-34.0); MEAN CORPUSCULAR HGB CONC 32.1 G/dL (31.0-37.0); MEAN CORPUSCULAR VOLUME 91 fL (80-100); MONOCYTES # (AUTO) 0.6 K/uL (0.1-1.0); MONOCYTES % (AUTO) 6.2 % (2.0-9.0); NEUTROPHILS # (AUTO) 8.5 K/uL (1.8-7.7); NEUTROPHILS % (AUTO) 82.6 % (40.0-70.0); PLATELET COUNT (AUTO) 190 K/uL (150-450); RED BLOOD CELL COUNT(AUTO) 5.02 MIL/uL (4.50-5.90); RED CELL DISTRIBUTION WIDTH 15.9 % (11.5-14.5)
[2018-10-05 13:38] LABS: ALANINE AMINOTRANSFERASE 58 U/L (12-78); ALBUMIN 3.4 g/dL (3.4-5.0); ALKALINE PHOSPHATASE 77 U/L (46-116); ANION GAP 6 mmol/L (8-16); ASPARTATE AMINOTRANSFERASE 20 U/L (15-37); BILIRUBIN,TOTAL 0.6 mg/dL (0.1-1.0); CALCIUM, TOTAL 8.7 mg/dL (8.8-10.5); CARBON DIOXIDE 27 mmol/L (22-29); CHLORIDE 104 mmol/L (98-107); CHOLESTEROL 204 mg/dL (131-200); CREATININE 1.04 mg/dL (0.60-1.30); FREE T4 (FREE THYROXINE) 0.94 ng/dL (0.76-1.46); GLOMERULAR FILTR. RATE CALC > 60 mL/min (>60); GLUCOSE,RANDOM 142 mg/dL (70-110); HDL CHOLESTEROL 69 mg/dL (40-60); LDL CHOL (CALC.) 124 mg/dL (0-130); POTASSIUM 5.4 mmol/L (3.5-5.1); SODIUM SERUM 137 mmol/L (136-145); THYROID STIMULATING HORMONE 1.77 uIU/mL (0.36-3.74); TOTAL PROTEIN, SERUM 7.1 g/dL (6.4-8.2); TRIGLYCERIDES 54 mg/dL (15-150); UREA NITROGEN, BLOOD 22 mg/dL (7-18)
[2018-10-05 13:43] LABS: PROSTATE SPECIFIC ANTIGEN 2.34 ng/mL (0.00-4.00)
== END | disposition home or self-care (01) ==
LOC: LABPV 10:01
PROVIDERS: ATTEND Hospitalist
DX: Z12.5 Encounter for screening for malignant neoplasm of prostate (principal); J45.909 Unspecified asthma, uncomplicated; Z79.899 Other long term (current) drug therapy; E78.5 Hyperlipidemia, unspecified
CPT/HCPCS: 36415; 80053; 80061; 84439; 84443; 85025; G0103; 84153

== ENCOUNTER 2018-11-28 23:19 | Inpatient (IN) | payer MEDICARE, MEDICAID ==
[~2018-11-28] VITALS: Ht 167.6 cm; Wt 118.2 kg
[~2018-11-28 23:19] MED LIST changes: -AMLO-511 PO; +AMLO5TAB9 PO
[2018-11-28] MEDS ORDERED: IPRATROPIUM BROMIDE 0.5 MG/2.5 ML NEB SOLUTION NEB ONE (23:45)
[2018-11-28] MEDS ORDERED: ALBUTEROL SULFATE 5 MG/ML 20 ML NEB SOLN [BULK] NEB ONE (23:45)
[2018-11-28 23:52] LABS: BASOPHILS % (AUTO) 0.1 % (0.0-2.0); EOSINOPHILS % (AUTO) 0.1 % (1.0-6.0); HEMATOCRIT 44.5 % (41-53); HEMOGLOBIN 14.5 g/dL (13.5-17.5); LYMPHOCYTES # (AUTO) 0.4 K/uL (1.0-4.8); LYMPHOCYTES % (AUTO) 5.8 % (22.0-44.0); MEAN CORPUSCULAR HEMOGLOBIN 29.7 pg (26.0-34.0); MEAN CORPUSCULAR HGB CONC 32.6 G/dL (31.0-37.0); MEAN CORPUSCULAR VOLUME 91 fL (80-100); MONOCYTES # (AUTO) 0.4 K/uL (0.1-1.0); MONOCYTES % (AUTO) 5.2 % (2.0-9.0); NEUTROPHILS # (AUTO) 6.2 K/uL (1.8-7.7); PLATELET COUNT (AUTO) 147 K/uL (150-450); RED BLOOD CELL COUNT(AUTO) 4.89 MIL/uL (4.50-5.90); RED CELL DISTRIBUTION WIDTH 14.7 % (11.5-14.5)
[2018-11-28 23:53] LABS: NEUTROPHILS % (AUTO) 88.8 % (40.0-70.0)
[2018-11-29] VITALS (7 sets, daily range): BP systolic 120–143; BP diastolic 71–91
[2018-11-29] MEDS ORDERED: BISACODYL 10 MG RECTAL RECTAL SUPPOSITORY PR PRN
[2018-11-29] MEDS ORDERED: CloNIDine HCL 0.1 MG TABLET PO PRN
[2018-11-29] MEDS ORDERED: ONDANSETRON HCL 4 MG/2 ML VIAL IVP PRN
[2018-11-29] MEDS ORDERED: IPRATROPIUM BROMIDE 0.5 MG/2.5 ML NEB SOLUTION NEB PRN
[2018-11-29] MEDS ORDERED: ZOLPIDEM TARTRATE 5 MG TABLET PO PRN
[2018-11-29] MEDS ORDERED: ALBUTEROL SULFATE 2.5 MG/0.5 ML NEB SOLUTION NEB PRN
[2018-11-29] MEDS ORDERED: MAGNESIUM HYDROXIDE SUSPENSION 30 ML UDCUP PO PRN
[2018-11-29] MEDS ORDERED: ACETAMINOPHEN 325 MG TABLET PO PRN
[2018-11-29] MEDS ORDERED: CefTRIAXone 1 GM/DEXTROSE 50 ML IV SCH
[2018-11-29 00:02] LABS: ANION GAP 15 mmol/L (8-16); CALCIUM, TOTAL 8.6 mg/dL (8.8-10.5); CARBON DIOXIDE 22 mmol/L (22-29); CHLORIDE 103 mmol/L (98-107); CREATININE 1.02 mg/dL (0.60-1.30); GLOMERULAR FILTR. RATE CALC > 60 mL/min (>60); GLUCOSE,RANDOM 126 mg/dL (70-110); POTASSIUM 3.8 mmol/L (3.5-5.1); SODIUM SERUM 140 mmol/L (136-145); UREA NITROGEN, BLOOD 7 mg/dL (7-18)
[2018-11-29 00:14] LABS: B-TYPE NATRIURETIC PEPTIDE 13 pg/mL (0-100)
[2018-11-29 00:27] LABS: ALANINE AMINOTRANSFERASE 48 U/L (12-78); ALKALINE PHOSPHATASE 74 U/L (46-116); ASPARTATE AMINOTRANSFERASE 57 U/L (15-37); CREATINE KINASE, TOTAL ONLY 423 U/L (39-308); TOTAL PROTEIN, SERUM 7.3 g/dL (6.4-8.2)
[2018-11-29] MEDS ORDERED: SODIUM CHLORIDE 0.9% 250 ML IV ONE (00:48)
[2018-11-29 00:58] LABS: APPEARANCE,URINE CLEAR (CLEAR); GLUCOSE, URINE (UA) NEGATIVE (NEGATIVE); KETONES,URINE 40 mg/dL (NEGATIVE); LEUKOCYTE ESTERASE ,URINE NEGATIVE (NEGATIVE); NITRATE,URINE NEGATIVE (NEGATIVE); OCCULT BLOOD,URINE TRACE (NEGATIVE); PROTEIN,URINE TRACE (NEGATIVE)
[2018-11-29 01:00] LABS: BILIRUBIN,URINE PRELIM. POSITIVE (NEGATIVE)
[2018-11-29 01:06] LABS: BACTERIA,URINE None Seen /HPF (None Seen); MUCUS,URINE Moderate LPF (None Seen); SQUAMOUS EPITHELIAL CELL,UR Rare /LPF (None Seen); WBC,URINE 0-2 /HPF (0-5)
[2018-11-29] MEDS: MethylPREDNISolone SOD SUCC 125 MG/2 ML VIAL IVP SCH ×4 (01:06→18:07)
[2018-11-29] MEDS: HEPARIN SODIUM,PORCINE 5,000 UNITS/ML VIAL SQ SCH ×3 (01:06→16:26)
[2018-11-29 01:14] LABS: ABG A-A DIFF O2 29.5 mmHg (10-20.0); ABG BASE EXCESS -5.5 mmol/L (-2.0-3.0); ABG CARBOXYHEMOGLOBIN 0.7 % (0.0-1.5); ABG HCO3 20.9 mmol/L (22.0-26.0); ABG METHEMOGLOBIN 0.3 % (0.0-1.5); ABG OXYGEN SATURATION 96.3 % (95.0-98.0); ABG OXYHEMOGLOBIN 95.3 % (94.0-100.0); ABG PCO2 32 mmHg (35-45); ABG PH 7.401 (7.35-7.450); ABG TOTAL HEMOGLOBIN 14.9 G/dL (12.0-18.0); SOURCE, BLOOD GAS ARTERIAL; TEMPERATURE, FAHRENHEIT, BG 99.3 FAHREN (96.0-98.6)
[2018-11-29 01:15] LABS: SITE, BLOOD GAS RT RADIAL
[2018-11-29] MEDS ORDERED: ALBUTEROL SULFATE 5 MG/ML 20 ML NEB SOLN [BULK] NEB ONE (01:30)
[2018-11-29] MEDS ORDERED: IPRATROPIUM BROMIDE 0.5 MG/2.5 ML NEB SOLUTION NEB ONE (01:30)
[2018-11-29] MEDS ORDERED: IOVERSOL 350 MG/ML 150 ML VIAL ONE (01:35)
[2018-11-29] MEDS ORDERED: SODIUM CHLORIDE 0.9% 100 ML ONE (01:35)
[2018-11-29] MEDS ORDERED: MethylPREDNISolone SOD SUCC 125 MG/2 ML VIAL IVP ONE (01:45)
[2018-11-29] MEDS: IPRATROPIUM BROMIDE 0.5 MG/2.5 ML NEB SOLUTION NEB SCH ×4 (02:06→19:25)
[2018-11-29] MEDS: ALBUTEROL SULFATE 2.5 MG/0.5 ML NEB SOLUTION NEB SCH ×4 (02:06→19:26)
[2018-11-29] MEDS: CefTRIAXone 1 GM/DEXTROSE 50 ML IV SCH (02:12)
[2018-11-29] MEDS: HYDROCODONE/ACETAMINOPHEN 5-325 MG TABLET PO PRN ×2 (02:30→08:40)
[2018-11-29] MEDS: AmLODIPine BESYLATE 5 MG TABLET PO SCH (07:58)
[2018-11-29] MEDS: DOCUSATE SODIUM 100 MG CAPSULE PO SCH ×2 (07:58→20:28)
[2018-11-29] MEDS: ATORVASTATIN CALCIUM 20 MG TABLET PO SCH (07:59)
[2018-11-29] MEDS: BENZONATATE 100 MG CAPSULE PO SCH ×3 (07:59→20:28)
[2018-11-29] MEDS: PANTOPRAZOLE SODIUM 40 MG DR TABLET PO SCH (07:59)
[2018-11-29] MEDS: MONTELUKAST SODIUM 10 MG TABLET PO SCH (07:59)
[2018-11-29] MEDS: GuaiFENesin SR 600 MG ER TABLET PO SCH ×2 (08:00→20:28)
[2018-11-29] MEDS: BUDESONIDE 0.5 MG/2 ML NEB SOLUTION NEB SCH ×2 (08:43→19:26)
[2018-11-29] MEDS: MORPHINE SULFATE 2 MG/ML SYRINGE IVP PRN ×2 (16:27→20:29)
[2018-11-29] MEDS ORDERED: 0.9% SODIUM CHLORIDE 5 ML NEB SOLUTION NEB ONE (19:11)
[2018-11-30] MEDS: HEPARIN SODIUM,PORCINE 5,000 UNITS/ML VIAL SQ SCH ×2 (00:09→08:46)
[2018-11-30] MEDS: MethylPREDNISolone SOD SUCC 125 MG/2 ML VIAL IVP SCH ×3 (00:10→12:00)
[2018-11-30] MEDS: MORPHINE SULFATE 2 MG/ML SYRINGE IVP PRN ×4 (00:29→13:27)
[2018-11-30] MEDS ORDERED: SODIUM CHLORIDE 0.9% 0 ML ONE (01:52)
[2018-11-30] MEDS: CefTRIAXone 1 GM/DEXTROSE 50 ML IV SCH (01:56)
[2018-11-30] MEDS: IPRATROPIUM BROMIDE 0.5 MG/2.5 ML NEB SOLUTION NEB SCH ×3 (02:04→13:37)
[2018-11-30] MEDS: ALBUTEROL SULFATE 2.5 MG/0.5 ML NEB SOLUTION NEB SCH ×3 (02:05→13:37)
[2018-11-30 05:16] VITALS: BP 154/95
[2018-11-30 07:18] VITALS: BP 143/79
[2018-11-30] MEDS: BUDESONIDE 0.5 MG/2 ML NEB SOLUTION NEB SCH (08:36)
[2018-11-30] MEDS: BENZONATATE 100 MG CAPSULE PO SCH (08:45)
[2018-11-30] MEDS: PANTOPRAZOLE SODIUM 40 MG DR TABLET PO SCH (08:45)
[2018-11-30] MEDS: ATORVASTATIN CALCIUM 20 MG TABLET PO SCH (08:45)
[2018-11-30] MEDS: DOCUSATE SODIUM 100 MG CAPSULE PO SCH (08:46)
[2018-11-30] MEDS: AmLODIPine BESYLATE 5 MG TABLET PO SCH (08:46)
[2018-11-30] MEDS: GuaiFENesin SR 600 MG ER TABLET PO SCH (08:46)
[2018-11-30] MEDS: MONTELUKAST SODIUM 10 MG TABLET PO SCH (08:46)
[2018-11-30] MEDS ORDERED: PRED20 PO (10:34)
[2018-11-30 11:00] VITALS: BP 14/101
== END 2018-11-30 14:46 | disposition home or self-care (01) | DRG 202 ==
LOC: EMS 23:22 → 5S 23:30
PROVIDERS: ADMIT Internal Medicine; ATTEND Internal Medicine
DX: J45.901 Unspecified asthma with (acute) exacerbation (principal); Z68.41 Body mass index [BMI] 40.0-44.9, adult; I10 Essential (primary) hypertension; E78.5 Hyperlipidemia, unspecified; E66.9 Obesity, unspecified; Z96.652 Presence of left artificial knee joint; F10.20 Alcohol dependence, uncomplicated; R19.7 Diarrhea, unspecified; E11.9 Type 2 diabetes mellitus without complications; E78.00 Pure hypercholesterolemia, unspecified; K21.9 Gastro-esophageal reflux disease without esophagitis; Z82.49 Family history of ischemic heart disease and other diseases of the circulatory system; Z83.3 Family history of diabetes mellitus; Z85.47 Personal history of malignant neoplasm of testis; Z88.6 Allergy status to analgesic agent; Z79.899 Other long term (current) drug therapy
CPT/HCPCS: 36600; 71275; 82805; 83605; 85379; 87040; 93005; 94640; 94644; J0696; J1644; J2270; J2930; J7050

== ENCOUNTER 2019-01-09 05:47 | Emergency (ER) | payer MEDICARE, MEDICAID ==
[~2019-01-09] VITALS: Ht 167.6 cm; Wt 109.1 kg
[~2019-01-09 05:47] MED LIST changes: -BENA20 PO; +BENA20TA11 PO; -CLON-570 PO; +PRED20 PO
[2019-01-09] MEDS ORDERED: 0.9% SODIUM CHLORIDE 5 ML NEB SOLUTION NEB ONE (05:57)
[2019-01-09] MEDS ORDERED: IPRATROPIUM BROMIDE 0.5 MG/2.5 ML NEB SOLUTION NEB ONE ×3 (06:00→08:45)
[2019-01-09] MEDS ORDERED: ALBUTEROL SULFATE 5 MG/ML 20 ML NEB SOLN [BULK] NEB ONE (06:00)
[2019-01-09] MEDS ORDERED: SODIUM CHLORIDE 0.9% 1,000 ML IV ONE (06:15)
[2019-01-09] MEDS ORDERED: MethylPREDNISolone SOD SUCC 125 MG/2 ML VIAL IVP ONE (06:15)
[2019-01-09] MEDS ORDERED: LEVALBUTEROL HCL 1.25 MG/0.5 ML NEB SOLUTION NEB ONE ×3 (07:11→08:45)
[2019-01-09] MEDS ORDERED: MAGNESIUM SULFATE 2 GM/WATER 50 ML IV ONE (07:15)
[2019-01-09 10:20] VITALS: BP 131/78
== END 2019-01-09 10:55 | disposition home or self-care (01) ==
LOC: EMS 05:47
DX: J44.1 Chronic obstructive pulmonary disease with (acute) exacerbation (principal); J45.901 Unspecified asthma with (acute) exacerbation; I10 Essential (primary) hypertension; E78.00 Pure hypercholesterolemia, unspecified; K21.9 Gastro-esophageal reflux disease without esophagitis; Z88.6 Allergy status to analgesic agent; Z79.899 Other long term (current) drug therapy
CPT/HCPCS: 94640; 94644; 94645; 96365; 96366; 96375; 99285; J2930; J3475; J7030; 94060

== ENCOUNTER 2019-02-17 19:39 | Inpatient (IN) | payer MEDICARE, MEDICAID ==
[~2019-02-17] VITALS: Ht 167.6 cm; Wt 114.0 kg
[2019-02-17] MEDS ORDERED: IPRATROPIUM BROMIDE 0.5 MG/2.5 ML NEB SOLUTION NEB ONE ×2 (20:00→21:15)
[2019-02-17] MEDS ORDERED: ALBUTEROL SULFATE 5 MG/ML 20 ML NEB SOLN [BULK] NEB ONE (20:00)
[2019-02-17] MEDS ORDERED: 0.9% SODIUM CHLORIDE 5 ML NEB SOLUTION NEB ONE ×2 (20:05→21:09)
[2019-02-17] MEDS ORDERED: MethylPREDNISolone SOD SUCC 125 MG/2 ML VIAL IVP ONE (20:30)
[2019-02-17 21:06] LABS: HEMATOCRIT 43.9 % (41-53); HEMOGLOBIN 14.3 g/dL (13.5-17.5); MEAN CORPUSCULAR HEMOGLOBIN 29.9 pg (26.0-34.0); MEAN CORPUSCULAR HGB CONC 32.7 G/dL (31.0-37.0); MEAN CORPUSCULAR VOLUME 92 fL (80-100); PLATELET COUNT (AUTO) 203 K/uL (150-450); RED BLOOD CELL COUNT(AUTO) 4.79 MIL/uL (4.50-5.90); RED CELL DISTRIBUTION WIDTH 14.9 % (11.5-14.5)
[2019-02-17] MEDS ORDERED: LEVALBUTEROL HCL 1.25 MG/0.5 ML NEB SOLUTION NEB ONE (21:15)
[2019-02-17 21:17] LABS: ANION GAP 10 mmol/L (8-16); CARBON DIOXIDE 27 mmol/L (22-29); CHLORIDE 102 mmol/L (98-107); GLOMERULAR FILTR. RATE CALC > 60 mL/min (>60); GLUCOSE,RANDOM 119 mg/dL (70-110); POTASSIUM 3.8 mmol/L (3.5-5.1); SODIUM SERUM 139 mmol/L (136-145); UREA NITROGEN, BLOOD 18 mg/dL (7-18)
[2019-02-17 21:20] LABS: APPEARANCE,URINE CLEAR (CLEAR); GLUCOSE, URINE (UA) NEGATIVE (NEGATIVE); KETONES,URINE TRACE mg/dL (NEGATIVE); LEUKOCYTE ESTERASE ,URINE NEGATIVE (NEGATIVE); NITRATE,URINE NEGATIVE (NEGATIVE); OCCULT BLOOD,URINE NEGATIVE (NEGATIVE); PH,URINE 5.5 (5.0-8.0); PROTEIN,URINE TRACE (NEGATIVE); UROBILINOGEN,URINE 0.2 mg/dL (<=1.0)
[2019-02-17 21:22] LABS: BILIRUBIN,URINE PRELIM. POSITIVE (NEGATIVE)
[2019-02-17 21:23] LABS: INR 1.1 (0.9-1.1); PROTHROMBIN TIME 10.7 SEC (9.4-11.6)
[2019-02-17 21:25] LABS: B-TYPE NATRIURETIC PEPTIDE 14 pg/mL (0-100)
[2019-02-17 21:36] LABS: BAND NEUTROPHILS % (MANUAL) 5 % (0-5); LYMPHOCYTES % (MANUAL) 19 % (22-44); MONOCYTES % (MANUAL) 11 % (2-9); REACTIVE LYMPHOCYTES 9 % (0-0); SEGMENTED NEUTROPHILS % 56 % (40-70)
[2019-02-17 21:42] LABS: ALANINE AMINOTRANSFERASE 105 U/L (12-78); ALBUMIN 3.7 g/dL (3.4-5.0); ALKALINE PHOSPHATASE 88 U/L (46-116); ASPARTATE AMINOTRANSFERASE 76 U/L (15-37); BILIRUBIN,TOTAL 0.6 mg/dL (0.1-1.0); CREATINE KINASE, TOTAL ONLY 267 U/L (39-308); TOTAL PROTEIN, SERUM 7.1 g/dL (6.4-8.2)
[2019-02-17 21:54] LABS: PLATELET MORPHOLOGY COMMENT NORMAL
[2019-02-17] MEDS ORDERED: ONDANSETRON HCL 4 MG/2 ML VIAL IVP PRN (22:00)
[2019-02-17] MEDS ORDERED: 0.9% SODIUM CHLORIDE 10 ML SYRINGE IVP PRN (22:00)
[2019-02-17] MEDS ORDERED: MAGNESIUM SULFATE 4 GM/WATER 100 ML IV ONE (22:00)
[2019-02-17] MEDS ORDERED: ACETAMINOPHEN 325 MG TABLET PO PRN (22:00)
[2019-02-18 01:00] VITALS: BP 134/83
[2019-02-18] MEDS ORDERED: OxyCODONE HCL/ACETAMINOPHEN 5-325 MG TABLET PO PRN ×2 (01:15→02:00)
[2019-02-18] MEDS ORDERED: IPRATROPIUM BROMIDE 0.5 MG/2.5 ML NEB SOLUTION NEB SCH (02:00)
[2019-02-18] MEDS ORDERED: ACETAMINOPHEN 325 MG TABLET PO PRN (02:00)
[2019-02-18] MEDS ORDERED: ONDANSETRON HCL 4 MG/2 ML VIAL IVP PRN (02:00)
[2019-02-18] MEDS: ALBUTEROL SULFATE 2.5 MG/0.5 ML NEB SOLUTION NEB SCH ×5 (02:00→23:09)
[2019-02-18] MEDS: IPRATROPIUM BROMIDE 0.5 MG/2.5 ML NEB SOLUTION NEB SCH ×5 (02:00→23:09)
[2019-02-18] MEDS ORDERED: MAGNESIUM HYDROXIDE SUSPENSION 30 ML UDCUP PO PRN (02:00)
[2019-02-18] MEDS ORDERED: 0.9% SODIUM CHLORIDE 10 ML SYRINGE IVP PRN (02:00)
[2019-02-18] MEDS ORDERED: ALBUTEROL SULFATE 2.5 MG/0.5 ML NEB SOLUTION NEB SCH (02:00)
[2019-02-18] MEDS: MethylPREDNISolone SOD SUCC 125 MG/2 ML VIAL IVP SCH ×4 (02:22→23:52)
[2019-02-18 05:06] VITALS: BP 133/70
[2019-02-18 06:14] LABS: BASOPHILS % (AUTO) 0.1 % (0.0-2.0); EOSINOPHILS % (AUTO) 0 % (1.0-6.0); HEMATOCRIT 40.8 % (41-53); HEMOGLOBIN 13.5 g/dL (13.5-17.5); LYMPHOCYTES # (AUTO) 0.1 K/uL (1.0-4.8); LYMPHOCYTES % (AUTO) 3.2 % (22.0-44.0); MEAN CORPUSCULAR HEMOGLOBIN 30.7 pg (26.0-34.0); MEAN CORPUSCULAR HGB CONC 33.1 G/dL (31.0-37.0); MEAN CORPUSCULAR VOLUME 93 fL (80-100); MONOCYTES # (AUTO) 0.1 K/uL (0.1-1.0); MONOCYTES % (AUTO) 1.5 % (2.0-9.0); NEUTROPHILS # (AUTO) 3.3 K/uL (1.8-7.7); PLATELET COUNT (AUTO) 188 K/uL (150-450); RED CELL DISTRIBUTION WIDTH 14.6 % (11.5-14.5)
[2019-02-18 06:15] LABS: NEUTROPHILS % (AUTO) 95.2 % (40.0-70.0)
[2019-02-18 06:44] LABS: ALBUMIN 3.3 g/dL (3.4-5.0); BILIRUBIN,TOTAL 0.4 mg/dL (0.1-1.0); CREATININE 1.71 mg/dL (0.60-1.30); POTASSIUM 3.4 mmol/L (3.5-5.1)
[2019-02-18 07:20] VITALS: BP 138/76
[2019-02-18] MEDS: DOCUSATE SODIUM 100 MG CAPSULE PO SCH ×2 (08:38→20:37)
[2019-02-18] MEDS: ATORVASTATIN CALCIUM 20 MG TABLET PO SCH (08:38)
[2019-02-18] MEDS: AmLODIPine BESYLATE 5 MG TABLET PO SCH (08:39)
[2019-02-18] MEDS: MONTELUKAST SODIUM 10 MG TABLET PO SCH (08:39)
[2019-02-18] MEDS ORDERED: BENAZEPRIL HCL 20 MG TABLET PO SCH (09:00)
[2019-02-18] MEDS: OxyCODONE HCL/ACETAMINOPHEN 5-325 MG TABLET PO PRN ×4 (09:00→22:19)
[2019-02-18] MEDS: FAMOTIDINE 10 MG/ML 2 ML VIAL IVP SCH (09:31)
[2019-02-18 11:00] VITALS: BP 136/84
[2019-02-18] MEDS ORDERED: DEXTROSE 50%-WATER 25 GM/50 ML SYRINGE IVP PRN (11:15)
[2019-02-18] MEDS ORDERED: POTASSIUM CHLORIDE 20 MEQ ER TABLET PO ONE (11:15)
[2019-02-18] MEDS: ALBUTEROL SULFATE 2.5 MG/0.5 ML NEB SOLUTION NEB PRN ×2 (11:40→15:02)
[2019-02-18] MEDS ORDERED: SODIUM CHLORIDE 0.9% 250 ML IV ONE (12:00)
[2019-02-18] MEDS: INSULIN LISPRO 100 UNITS/ML SQ PRN ×3 (12:07→20:38)
[2019-02-18 12:22] LABS: GLUCOMETER DEV NAME(LOC) 5S.1; GLUCOSE,POINT OF CARE 325 MG/DL (70-110)
[2019-02-18] MEDS: AZITHROMYCIN 500 MG/NS 250 ML IV SCH (12:26)
[2019-02-18] MEDS ORDERED: 0.9% SODIUM CHLORIDE 5 ML NEB SOLUTION NEB ONE (14:12)
[2019-02-18 15:18] VITALS: BP 129/73
[2019-02-18 19:45] VITALS: BP 120/79
[2019-02-18] MEDS: HEPARIN SODIUM,PORCINE 5,000 UNITS/ML VIAL SQ SCH (20:36)
[2019-02-19 00:14] VITALS: BP 112/76
[2019-02-19] MEDS: OxyCODONE HCL/ACETAMINOPHEN 5-325 MG TABLET PO PRN ×5 (02:22→20:36)
[2019-02-19] MEDS: IPRATROPIUM BROMIDE 0.5 MG/2.5 ML NEB SOLUTION NEB SCH ×6 (03:18→23:04)
[2019-02-19] MEDS: ALBUTEROL SULFATE 2.5 MG/0.5 ML NEB SOLUTION NEB SCH ×6 (03:18→23:04)
[2019-02-19 04:37] VITALS: BP 128/77
[2019-02-19] MEDS: INSULIN LISPRO 100 UNITS/ML SQ PRN ×4 (06:27→22:15)
[2019-02-19 06:29] LABS: BASOPHILS % (AUTO) 0.2 % (0.0-2.0); EOSINOPHILS % (AUTO) 0 % (1.0-6.0); HEMATOCRIT 36.9 % (41-53); HEMOGLOBIN 12.6 g/dL (13.5-17.5); LYMPHOCYTES # (AUTO) 0.2 K/uL (1.0-4.8); LYMPHOCYTES % (AUTO) 2.6 % (22.0-44.0); MEAN CORPUSCULAR VOLUME 91 fL (80-100); MONOCYTES # (AUTO) 0.6 K/uL (0.1-1.0); MONOCYTES % (AUTO) 6.5 % (2.0-9.0); NEUTROPHILS # (AUTO) 8.2 K/uL (1.8-7.7); PLATELET COUNT (AUTO) 181 K/uL (150-450); RED BLOOD CELL COUNT(AUTO) 4.06 MIL/uL (4.50-5.90); RED CELL DISTRIBUTION WIDTH 14.8 % (11.5-14.5)
[2019-02-19 06:37] LABS: NEUTROPHILS % (AUTO) 90.7 % (40.0-70.0)
[2019-02-19 06:41] LABS: ANION GAP 9 mmol/L (8-16); CARBON DIOXIDE 24 mmol/L (22-29); CHLORIDE 102 mmol/L (98-107); CREATININE 1.13 mg/dL (0.60-1.30); GLOMERULAR FILTR. RATE CALC > 60 mL/min (>60); GLUCOSE,RANDOM 216 mg/dL (70-110); POTASSIUM 3.8 mmol/L (3.5-5.1); SODIUM SERUM 135 mmol/L (136-145); UREA NITROGEN, BLOOD 15 mg/dL (7-18)
[2019-02-19 07:37] VITALS: BP 125/74
[2019-02-19] MEDS: DOCUSATE SODIUM 100 MG CAPSULE PO SCH ×2 (08:08→21:00)
[2019-02-19] MEDS: AmLODIPine BESYLATE 5 MG TABLET PO SCH (08:08)
[2019-02-19] MEDS: ATORVASTATIN CALCIUM 20 MG TABLET PO SCH (08:08)
[2019-02-19] MEDS: MONTELUKAST SODIUM 10 MG TABLET PO SCH (08:08)
[2019-02-19] MEDS: FAMOTIDINE 10 MG/ML 2 ML VIAL IVP SCH (08:10)
[2019-02-19] MEDS: HEPARIN SODIUM,PORCINE 5,000 UNITS/ML VIAL SQ SCH ×2 (08:10→22:09)
[2019-02-19] MEDS: MethylPREDNISolone SOD SUCC 125 MG/2 ML VIAL IVP SCH (08:11)
[2019-02-19 11:23] VITALS: BP 131/74
[2019-02-19] MEDS: AZITHROMYCIN 500 MG/NS 250 ML IV SCH (11:42)
[2019-02-19 13:59] LABS: GLUCOMETER DEV NAME(LOC) 5S.1; GLUCOSE,POINT OF CARE 278 MG/DL (70-110)
[2019-02-19 13:59] LABS: GLUCOMETER DEV NAME(LOC) 5S.1; GLUCOSE,POINT OF CARE 316 MG/DL (70-110)
[2019-02-19 13:59] LABS: GLUCOMETER DEV NAME(LOC) 5S.1; GLUCOSE,POINT OF CARE 206 MG/DL (70-110)
[2019-02-19] MEDS: PredniSONE 20 MG TABLET PO SCH (14:44)
[2019-02-19 15:53] VITALS: BP 122/68
[2019-02-19 19:33] VITALS: BP 120/79
[2019-02-20 00:15] VITALS: BP 118/64
[2019-02-20] MEDS: OxyCODONE HCL/ACETAMINOPHEN 5-325 MG TABLET PO PRN ×4 (00:34→13:11)
[2019-02-20] MEDS: IPRATROPIUM BROMIDE 0.5 MG/2.5 ML NEB SOLUTION NEB SCH ×3 (03:05→11:28)
[2019-02-20] MEDS: ALBUTEROL SULFATE 2.5 MG/0.5 ML NEB SOLUTION NEB SCH ×3 (03:06→11:28)
[2019-02-20 05:13] VITALS: BP 127/89
[2019-02-20] MEDS: INSULIN LISPRO 100 UNITS/ML SQ PRN ×2 (06:22→12:04)
[2019-02-20 07:40] LABS: GLUCOMETER DEV NAME(LOC) 5S.1; GLUCOSE,POINT OF CARE 234 MG/DL (70-110)
[2019-02-20 07:40] LABS: GLUCOMETER DEV NAME(LOC) 5S.1; GLUCOSE,POINT OF CARE 177 MG/DL (70-110)
[2019-02-20 07:40] LABS: GLUCOMETER DEV NAME(LOC) 5S.1; GLUCOSE,POINT OF CARE 314 MG/DL (70-110)
[2019-02-20 07:40] LABS: GLUCOMETER DEV NAME(LOC) 5S.1; GLUCOSE,POINT OF CARE 305 MG/DL (70-110)
[2019-02-20 08:09] VITALS: BP 120/62
[2019-02-20] MEDS: AmLODIPine BESYLATE 5 MG TABLET PO SCH (08:23)
[2019-02-20] MEDS: MONTELUKAST SODIUM 10 MG TABLET PO SCH (08:23)
[2019-02-20] MEDS: PredniSONE 20 MG TABLET PO SCH (08:23)
[2019-02-20] MEDS: DOCUSATE SODIUM 100 MG CAPSULE PO SCH (08:23)
[2019-02-20] MEDS: ATORVASTATIN CALCIUM 20 MG TABLET PO SCH (08:23)
[2019-02-20] MEDS: FAMOTIDINE 10 MG/ML 2 ML VIAL IVP SCH (08:24)
[2019-02-20] MEDS: HEPARIN SODIUM,PORCINE 5,000 UNITS/ML VIAL SQ SCH (08:24)
[2019-02-20 11:29] VITALS: BP 132/71
[2019-02-20] MEDS: AZITHROMYCIN 500 MG/NS 250 ML IV SCH (13:12)
[2019-02-20] MEDS ORDERED: AZIT250T9 PO (13:34)
[2019-02-20] MEDS ORDERED: PRED10 PO (13:35)
[2019-02-21 06:05] LABS: GLUCOMETER DEV NAME(LOC) 5S.2A; GLUCOSE,POINT OF CARE 198 MG/DL (70-110)
== END 2019-02-20 14:00 | disposition home or self-care (01) | DRG 202 ==
LOC: EMS 19:55 → 5N 02-18 00:20
PROVIDERS: ADMIT Internal Medicine; ATTEND Internal Medicine
DX: J45.901 Unspecified asthma with (acute) exacerbation (principal); N17.9 Acute kidney failure, unspecified; Z68.41 Body mass index [BMI] 40.0-44.9, adult; E66.01 Morbid (severe) obesity due to excess calories; I10 Essential (primary) hypertension; E78.00 Pure hypercholesterolemia, unspecified; K21.9 Gastro-esophageal reflux disease without esophagitis; Z96.653 Presence of artificial knee joint, bilateral; R06.03 Acute respiratory distress; G47.33 Obstructive sleep apnea (adult) (pediatric); R73.9 Hyperglycemia, unspecified; E87.6 Hypokalemia; Z88.1 Allergy status to other antibiotic agents; Z88.6 Allergy status to analgesic agent
CPT/HCPCS: 80074; 83036; 83735; 93005; 94640; 94644; 94645; J0456; J1644; J2930; J3475; J3490; J7050

== ENCOUNTER 2019-03-19 13:44 | Inpatient (IN) | payer MEDICARE, MEDICAID ==
[~2019-03-19] VITALS: Ht 167.6 cm; Wt 109.0 kg
[~2019-03-19 13:44] MED LIST changes: +AZIT250T9 PO; +PRED10 PO; -PRED20 PO
[2019-03-19] MEDS ORDERED: MethylPREDNISolone SOD SUCC 125 MG/2 ML VIAL IVP ONE (14:00)
[2019-03-19] MEDS ORDERED: IPRATROPIUM BROMIDE 0.5 MG/2.5 ML NEB SOLUTION NEB ONE ×2 (14:00→15:15)
[2019-03-19] MEDS ORDERED: ALBUTEROL SULFATE 5 MG/ML 20 ML NEB SOLN [BULK] NEB ONE ×2 (14:00→15:15)
[2019-03-19] MEDS ORDERED: MEPO100V IM (14:04)
[2019-03-19 14:18] LABS: BASOPHILS % (AUTO) 0.8 % (0.0-2.0); EOSINOPHILS % (AUTO) 0.3 % (1.0-6.0); HEMATOCRIT 42.7 % (41-53); HEMOGLOBIN 14.4 g/dL (13.5-17.5); LYMPHOCYTES # (AUTO) 0.2 K/uL (1.0-4.8); LYMPHOCYTES % (AUTO) 3.9 % (22.0-44.0); MEAN CORPUSCULAR HEMOGLOBIN 30.5 pg (26.0-34.0); MEAN CORPUSCULAR HGB CONC 33.6 G/dL (31.0-37.0); MEAN CORPUSCULAR VOLUME 91 fL (80-100); MONOCYTES # (AUTO) 0.1 K/uL (0.1-1.0); MONOCYTES % (AUTO) 2.6 % (2.0-9.0); NEUTROPHILS # (AUTO) 5.1 K/uL (1.8-7.7); PLATELET COUNT (AUTO) 291 K/uL (150-450); RED BLOOD CELL COUNT(AUTO) 4.71 MIL/uL (4.50-5.90); RED CELL DISTRIBUTION WIDTH 14.5 % (11.5-14.5)
[2019-03-19 14:19] LABS: NEUTROPHILS % (AUTO) 92.4 % (40.0-70.0)
[2019-03-19 14:31] LABS: ANION GAP 14 mmol/L (8-16); CALCIUM, TOTAL 8.2 mg/dL (8.8-10.5); CARBON DIOXIDE 26 mmol/L (22-29); CHLORIDE 101 mmol/L (98-107); CREATININE 0.97 mg/dL (0.60-1.30); GLOMERULAR FILTR. RATE CALC > 60 mL/min (>60); GLUCOSE,RANDOM 163 mg/dL (70-110); POTASSIUM 3.2 mmol/L (3.5-5.1); SODIUM SERUM 141 mmol/L (136-145); UREA NITROGEN, BLOOD 6 mg/dL (7-18)
[2019-03-19 14:37] LABS: ALANINE AMINOTRANSFERASE 97 U/L (12-78); ALBUMIN 3.7 g/dL (3.4-5.0); ALKALINE PHOSPHATASE 76 U/L (46-116); ASPARTATE AMINOTRANSFERASE 51 U/L (15-37); BILIRUBIN,TOTAL 0.8 mg/dL (0.1-1.0); TOTAL PROTEIN, SERUM 7.2 g/dL (6.4-8.2)
[2019-03-19 14:54] LABS: B-TYPE NATRIURETIC PEPTIDE 22 pg/mL (0-100)
[2019-03-19] MEDS ORDERED: POTASSIUM CHLORIDE 20 MEQ ER TABLET PO ONE (15:00)
[2019-03-19] MEDS ORDERED: ONDANSETRON HCL 4 MG/2 ML VIAL IVP PRN (15:15)
[2019-03-19] MEDS ORDERED: ACETAMINOPHEN 325 MG TABLET PO PRN ×2 (15:15→15:30)
[2019-03-19] MEDS ORDERED: 0.9% SODIUM CHLORIDE 10 ML SYRINGE IVP PRN (15:15)
[2019-03-19] MEDS ORDERED: MAGNESIUM HYDROXIDE SUSPENSION 30 ML UDCUP PO PRN (15:30)
[2019-03-19] MEDS ORDERED: POTASSIUM CHLORIDE 20 MEQ ER TABLET PO PRN (15:30)
[2019-03-19] MEDS ORDERED: INSULIN LISPRO 100 UNITS/ML SQ PRN (15:30)
[2019-03-19] MEDS ORDERED: DEXTROSE 50%-WATER 25 GM/50 ML SYRINGE IVP PRN ×2 (15:30)
[2019-03-19] MEDS ORDERED: POTASSIUM CHL 10 MEQ/WATER 50 ML IV PRN (15:30)
[2019-03-19] MEDS ORDERED: ALBUTEROL SULFATE 2.5 MG/0.5 ML NEB SOLUTION NEB PRN (15:30)
[2019-03-19] MEDS ORDERED: IPRATROPIUM BROMIDE 0.5 MG/2.5 ML NEB SOLUTION NEB PRN (15:30)
[2019-03-19 16:41] VITALS: BP 137/88
[2019-03-19] MEDS: HEPARIN SODIUM,PORCINE 5,000 UNITS/ML VIAL SQ SCH (16:48)
[2019-03-19] MEDS: AZITHROMYCIN 500 MG/NS 250 ML IV SCH (16:48)
[2019-03-19] MEDS: MONTELUKAST SODIUM 10 MG TABLET PO SCH (16:54)
[2019-03-19] MEDS: MethylPREDNISolone SOD SUCC 125 MG/2 ML VIAL IVP SCH (17:26)
[2019-03-19 19:23] VITALS: BP 134/77
[2019-03-19] MEDS ORDERED: ALBUTEROL SULFATE 2.5 MG/0.5 ML NEB SOLUTION NEB SCH (20:00)
[2019-03-19] MEDS ORDERED: IPRATROPIUM BROMIDE 0.5 MG/2.5 ML NEB SOLUTION NEB SCH (20:00)
[2019-03-19] MEDS: HYDROCODONE/ACETAMINOPHEN 5-325 MG TABLET PO PRN (21:09)
[2019-03-19] MEDS: DOCUSATE SODIUM 100 MG CAPSULE PO SCH (21:09)
[2019-03-19] MEDS: INSULIN LISPRO 100 UNITS/ML SQ PRN (21:16)
[2019-03-19 21:39] LABS: GLUCOMETER DEV NAME(LOC) 6N.1; GLUCOSE,POINT OF CARE 325 MG/DL (70-110)
[2019-03-19] MEDS: ALBUTEROL SULFATE 2.5 MG/0.5 ML NEB SOLUTION NEB PRN (22:57)
[2019-03-19] MEDS: IPRATROPIUM BROMIDE 0.5 MG/2.5 ML NEB SOLUTION NEB PRN (22:58)
[2019-03-19] MEDS: ALBUTEROL SULFATE 2.5 MG/0.5 ML NEB SOLUTION NEB SCH (23:00)
[2019-03-19] MEDS: IPRATROPIUM BROMIDE 0.5 MG/2.5 ML NEB SOLUTION NEB SCH (23:00)
[2019-03-19 23:39] VITALS: BP 150/104
[2019-03-20] MEDS: MethylPREDNISolone SOD SUCC 125 MG/2 ML VIAL IVP SCH ×5 (00:13→23:27)
[2019-03-20] MEDS: HEPARIN SODIUM,PORCINE 5,000 UNITS/ML VIAL SQ SCH ×4 (00:13→23:26)
[2019-03-20] MEDS: HYDROCODONE/ACETAMINOPHEN 5-325 MG TABLET PO PRN ×4 (03:33→23:26)
[2019-03-20] MEDS: ALBUTEROL SULFATE 2.5 MG/0.5 ML NEB SOLUTION NEB SCH ×7 (03:40→23:05)
[2019-03-20] MEDS: IPRATROPIUM BROMIDE 0.5 MG/2.5 ML NEB SOLUTION NEB SCH ×7 (03:40→23:05)
[2019-03-20 04:23] VITALS: BP 169/101
[2019-03-20] MEDS: AmLODIPine BESYLATE 10 MG TABLET PO SCH (06:05)
[2019-03-20] MEDS: INSULIN LISPRO 100 UNITS/ML SQ PRN ×4 (06:10→20:03)
[2019-03-20 07:40] VITALS: BP 156/88
[2019-03-20 08:05] LABS: BASOPHILS % (AUTO) 0.3 % (0.0-2.0); EOSINOPHILS % (AUTO) 0 % (1.0-6.0); HEMATOCRIT 41.4 % (41-53); LYMPHOCYTES # (AUTO) 0.3 K/uL (1.0-4.8); LYMPHOCYTES % (AUTO) 4.6 % (22.0-44.0); MEAN CORPUSCULAR HEMOGLOBIN 30.7 pg (26.0-34.0); MEAN CORPUSCULAR HGB CONC 33.8 G/dL (31.0-37.0); MEAN CORPUSCULAR VOLUME 91 fL (80-100); MONOCYTES # (AUTO) 0.3 K/uL (0.1-1.0); MONOCYTES % (AUTO) 4.9 % (2.0-9.0); PLATELET COUNT (AUTO) 250 K/uL (150-450); RED BLOOD CELL COUNT(AUTO) 4.56 MIL/uL (4.50-5.90); RED CELL DISTRIBUTION WIDTH 14.6 % (11.5-14.5)
[2019-03-20 08:07] LABS: NEUTROPHILS % (AUTO) 90.2 % (40.0-70.0)
[2019-03-20 08:24] LABS: ALANINE AMINOTRANSFERASE 88 U/L (12-78); ALBUMIN 3.6 g/dL (3.4-5.0); ALKALINE PHOSPHATASE 74 U/L (46-116); ANION GAP 12 mmol/L (8-16); ASPARTATE AMINOTRANSFERASE 27 U/L (15-37); BILIRUBIN,TOTAL 0.5 mg/dL (0.1-1.0); CALCIUM, TOTAL 8.6 mg/dL (8.8-10.5); CARBON DIOXIDE 26 mmol/L (22-29); CHLORIDE 100 mmol/L (98-107); CREATININE 1.12 mg/dL (0.60-1.30); GLOMERULAR FILTR. RATE CALC > 60 mL/min (>60); GLUCOSE,RANDOM 276 mg/dL (70-110); SODIUM SERUM 138 mmol/L (136-145); TOTAL PROTEIN, SERUM 7.1 g/dL (6.4-8.2); UREA NITROGEN, BLOOD 8 mg/dL (7-18)
[2019-03-20] MEDS: ALBUTEROL SULFATE 2.5 MG/0.5 ML NEB SOLUTION NEB PRN (08:49)
[2019-03-20] MEDS: IPRATROPIUM BROMIDE 0.5 MG/2.5 ML NEB SOLUTION NEB PRN (08:49)
[2019-03-20] MEDS: DOCUSATE SODIUM 100 MG CAPSULE PO SCH ×2 (09:37→20:03)
[2019-03-20] MEDS: FAMOTIDINE 20 MG TABLET PO SCH (09:37)
[2019-03-20] MEDS: BENZONATATE 100 MG CAPSULE PO SCH ×3 (09:46→23:26)
[2019-03-20] MEDS: MONTELUKAST SODIUM 10 MG TABLET PO SCH (09:46)
[2019-03-20] MEDS: MULTIVITAMINS WITH MINERALS, THERAPEUTIC TABLET PO SCH (09:46)
[2019-03-20 11:10] VITALS: BP 139/86
[2019-03-20 12:38] LABS: GLUCOMETER DEV NAME(LOC) 6N.1; GLUCOSE,POINT OF CARE 216 MG/DL (70-110)
[2019-03-20 12:38] LABS: GLUCOMETER DEV NAME(LOC) 6N.1; GLUCOSE,POINT OF CARE 290 MG/DL (70-110)
[2019-03-20 15:00] VITALS: BP 159/88
[2019-03-20] MEDS: AZITHROMYCIN 500 MG/NS 250 ML IV SCH (16:40)
[2019-03-20] MEDS ORDERED: SODIUM CHLORIDE 0.9% 500 ML IV ONE (16:46)
[2019-03-20 17:42] LABS: GLUCOMETER DEV NAME(LOC) 6N.1; GLUCOSE,POINT OF CARE 282 MG/DL (70-110)
[2019-03-20 19:53] VITALS: BP 148/89
[2019-03-20] MEDS ORDERED: BENAZEPRIL HCL 20 MG TABLET PO ONE (20:30)
[2019-03-20 22:02] LABS: GLUCOMETER DEV NAME(LOC) 6N.1; GLUCOSE,POINT OF CARE 270 MG/DL (70-110)
[2019-03-20] MEDS: BENAZEPRIL HCL 20 MG TABLET PO SCH (23:26)
[2019-03-20 23:37] VITALS: BP 139/73
[2019-03-21] MEDS: ALBUTEROL SULFATE 2.5 MG/0.5 ML NEB SOLUTION NEB SCH ×6 (03:37→23:00)
[2019-03-21] MEDS: IPRATROPIUM BROMIDE 0.5 MG/2.5 ML NEB SOLUTION NEB SCH ×6 (03:37→23:00)
[2019-03-21 04:33] VITALS: BP 152/82
[2019-03-21] MEDS ORDERED: MethylPREDNISolone SOD SUCC 40 MG/ML VIAL IVP SCH (06:00)
[2019-03-21] MEDS: INSULIN LISPRO 100 UNITS/ML SQ PRN ×4 (06:00→20:39)
[2019-03-21] MEDS: HYDROCODONE/ACETAMINOPHEN 5-325 MG TABLET PO PRN ×4 (06:08→23:26)
[2019-03-21 07:46] LABS: GLUCOMETER DEV NAME(LOC) 6N.1; GLUCOSE,POINT OF CARE 261 MG/DL (70-110)
[2019-03-21 07:56] VITALS: BP 140/83
[2019-03-21] MEDS: MULTIVITAMINS WITH MINERALS, THERAPEUTIC TABLET PO SCH (08:01)
[2019-03-21] MEDS: DOCUSATE SODIUM 100 MG CAPSULE PO SCH ×2 (08:01→20:38)
[2019-03-21] MEDS: AmLODIPine BESYLATE 10 MG TABLET PO SCH (08:02)
[2019-03-21] MEDS: FAMOTIDINE 20 MG TABLET PO SCH (08:02)
[2019-03-21] MEDS: HEPARIN SODIUM,PORCINE 5,000 UNITS/ML VIAL SQ SCH ×3 (08:02→23:17)
[2019-03-21] MEDS: BENZONATATE 100 MG CAPSULE PO SCH ×3 (08:02→23:17)
[2019-03-21] MEDS: MONTELUKAST SODIUM 10 MG TABLET PO SCH (08:05)
[2019-03-21] MEDS: BENAZEPRIL HCL 20 MG TABLET PO SCH ×2 (09:00→14:52)
[2019-03-21 11:13] VITALS: BP 142/20
[2019-03-21 11:56] LABS: GLUCOMETER DEV NAME(LOC) 6N.1; GLUCOSE,POINT OF CARE 260 MG/DL (70-110)
[2019-03-21] MEDS: MethylPREDNISolone SOD SUCC 40 MG/ML VIAL IVP SCH ×3 (11:56→23:17)
[2019-03-21] MEDS: AZITHROMYCIN 500 MG/NS 250 ML IV SCH (14:52)
[2019-03-21 16:17] VITALS: BP 118/75
[2019-03-21 19:50] VITALS: BP 122/82
[2019-03-21 21:41] LABS: GLUCOMETER DEV NAME(LOC) 6N.1; GLUCOSE,POINT OF CARE 242 MG/DL (70-110)
[2019-03-21 21:41] LABS: GLUCOMETER DEV NAME(LOC) 6N.1; GLUCOSE,POINT OF CARE 261 MG/DL (70-110)
[2019-03-21 23:20] VITALS: BP 123/76
[2019-03-22] MEDS: IPRATROPIUM BROMIDE 0.5 MG/2.5 ML NEB SOLUTION NEB SCH ×4 (03:09→15:02)
[2019-03-22] MEDS: ALBUTEROL SULFATE 2.5 MG/0.5 ML NEB SOLUTION NEB SCH ×4 (03:10→15:03)
[2019-03-22 05:05] VITALS: BP 128/83
[2019-03-22] MEDS: MethylPREDNISolone SOD SUCC 40 MG/ML VIAL IVP SCH ×2 (06:15→11:59)
[2019-03-22] MEDS: INSULIN LISPRO 100 UNITS/ML SQ PRN ×2 (06:16→11:59)
[2019-03-22 07:20] LABS: GLUCOMETER DEV NAME(LOC) 6N.1; GLUCOSE,POINT OF CARE 254 MG/DL (70-110)
[2019-03-22 07:31] VITALS: BP 146/86
[2019-03-22] MEDS: HEPARIN SODIUM,PORCINE 5,000 UNITS/ML VIAL SQ SCH (08:00)
[2019-03-22] MEDS: AmLODIPine BESYLATE 10 MG TABLET PO SCH (08:47)
[2019-03-22] MEDS: FAMOTIDINE 20 MG TABLET PO SCH (08:47)
[2019-03-22] MEDS: MULTIVITAMINS WITH MINERALS, THERAPEUTIC TABLET PO SCH (08:47)
[2019-03-22] MEDS: MONTELUKAST SODIUM 10 MG TABLET PO SCH (08:47)
[2019-03-22] MEDS: DOCUSATE SODIUM 100 MG CAPSULE PO SCH (08:47)
[2019-03-22] MEDS: BENZONATATE 100 MG CAPSULE PO SCH (08:47)
[2019-03-22] MEDS: BENAZEPRIL HCL 20 MG TABLET PO SCH (08:47)
[2019-03-22 11:25] VITALS: BP 149/85
[2019-03-22 13:52] LABS: GLUCOMETER DEV NAME(LOC) 6N.1; GLUCOSE,POINT OF CARE 277 MG/DL (70-110)
[2019-03-22] MEDS ORDERED: PRED15SO57 PO (14:28)
[2019-03-22 15:17] VITALS: BP 150/93
== END 2019-03-22 15:20 | disposition home or self-care (01) | DRG 203 ==
LOC: EMS 13:46 → AHU 15:19 → 6N 18:00
PROVIDERS: ADMIT Internal Medicine; ATTEND Internal Medicine
DX: J45.901 Unspecified asthma with (acute) exacerbation (principal); R74.0 Nonspecific elevation of levels of transaminase and lactic acid dehydrogenase [LDH]; E87.6 Hypokalemia; K21.9 Gastro-esophageal reflux disease without esophagitis; E78.00 Pure hypercholesterolemia, unspecified; I10 Essential (primary) hypertension; R73.9 Hyperglycemia, unspecified; K70.9 Alcoholic liver disease, unspecified; R73.03 Prediabetes; F10.10 Alcohol abuse, uncomplicated; Y90.9 Presence of alcohol in blood, level not specified; E66.01 Morbid (severe) obesity due to excess calories; Z82.5 Family history of asthma and other chronic lower respiratory diseases; Z82.49 Family history of ischemic heart disease and other diseases of the circulatory system; Z88.8 Allergy status to other drugs, medicaments and biological substances; Z91.018 Allergy to other foods; Z68.38 Body mass index [BMI] 38.0-38.9, adult; Z71.41 Alcohol abuse counseling and surveillance of alcoholic
CPT/HCPCS: 84132; 94640; 94644; 94645; 96374; J0456; J1644; J2920; J2930; J7040

== ENCOUNTER 2019-04-19 22:23 | Emergency (ER) | payer MEDICARE, MEDICAID ==
[~2019-04-19] VITALS: Ht 167.6 cm; Wt 104.5 kg
[~2019-04-19 22:23] MED LIST changes: -AZIT250T9 PO; -KDUR10 PO; -PRED10 PO; +PRED15SO57 PO
[2019-04-19] MEDS ORDERED: 0.9% SODIUM CHLORIDE 15 ML NEB SOLUTION NEB ONE ×2 (22:36→23:48)
[2019-04-19] MEDS ORDERED: IPRATROPIUM BROMIDE 0.5 MG/2.5 ML NEB SOLUTION NEB ONE ×2 (22:45)
[2019-04-19] MEDS ORDERED: ALBUTEROL SULFATE 5 MG/ML 20 ML NEB SOLN [BULK] NEB ONE ×2 (22:45)
[2019-04-19] MEDS ORDERED: MethylPREDNISolone SOD SUCC 125 MG/2 ML VIAL IVP ONE (22:45)
[2019-04-19 23:12] LABS: ANION GAP 7 mmol/L (8-16); CALCIUM, TOTAL 7.6 mg/dL (8.8-10.5); CARBON DIOXIDE 30 mmol/L (22-29); CHLORIDE 107 mmol/L (98-107); GLOMERULAR FILTR. RATE CALC > 60 mL/min (>60); GLUCOSE,RANDOM 113 mg/dL (70-110); POTASSIUM 3.4 mmol/L (3.5-5.1); SODIUM SERUM 144 mmol/L (136-145); UREA NITROGEN, BLOOD 5 mg/dL (7-18)
[2019-04-19 23:13] LABS: BASOPHILS % (AUTO) 0.9 % (0.0-2.0); EOSINOPHILS % (AUTO) 10.3 % (1.0-6.0); HEMATOCRIT 41.8 % (41-53); HEMOGLOBIN 14.1 g/dL (13.5-17.5); LYMPHOCYTES # (AUTO) 1.5 K/uL (1.0-4.8); LYMPHOCYTES % (AUTO) 22.2 % (22.0-44.0); MEAN CORPUSCULAR HEMOGLOBIN 30.8 pg (26.0-34.0); MEAN CORPUSCULAR HGB CONC 33.7 G/dL (31.0-37.0); MEAN CORPUSCULAR VOLUME 92 fL (80-100); MONOCYTES # (AUTO) 0.8 K/uL (0.1-1.0); MONOCYTES % (AUTO) 12.4 % (2.0-9.0); NEUTROPHILS # (AUTO) 3.7 K/uL (1.8-7.7); NEUTROPHILS % (AUTO) 54.2 % (40.0-70.0); PLATELET COUNT (AUTO) 192 K/uL (150-450); RED BLOOD CELL COUNT(AUTO) 4.57 MIL/uL (4.50-5.90); RED CELL DISTRIBUTION WIDTH 14.4 % (11.5-14.5)
[2019-04-19 23:37] LABS: CREATINE KINASE, TOTAL ONLY 103 U/L (39-308)
[2019-04-20] MEDS ORDERED: IPRATROPIUM BROMIDE 0.5 MG/2.5 ML NEB SOLUTION NEB ONE
[2019-04-20] MEDS ORDERED: MAGNESIUM SULFATE 2 GM/WATER 50 ML IV ONE
[2019-04-20] MEDS ORDERED: ALBUTEROL SULFATE 5 MG/ML 20 ML NEB SOLN [BULK] NEB ONE
[2019-04-20 01:52] VITALS: BP 101/62
== END 2019-04-20 02:00 | disposition left against medical advice (07) ==
LOC: EMS 22:24
DX: J45.909 Unspecified asthma, uncomplicated (principal); E83.42 Hypomagnesemia; E78.00 Pure hypercholesterolemia, unspecified; I10 Essential (primary) hypertension; K21.9 Gastro-esophageal reflux disease without esophagitis; F10.20 Alcohol dependence, uncomplicated; Z79.899 Other long term (current) drug therapy; Z88.6 Allergy status to analgesic agent; Z91.018 Allergy to other foods
CPT/HCPCS: 36415; 71045; 80048; 82550; 83735; 85025; 94644; 94645; 96365; 96366; 96375; 99285; J2930; J3475

== ENCOUNTER 2019-04-29 12:59 | Emergency (ER) | payer MEDICARE, MEDICAID ==
[~2019-04-29] VITALS: Ht 167.6 cm; Wt 109.1 kg
[2019-04-29] MEDS ORDERED: IPRATROPIUM BROMIDE 0.5 MG/2.5 ML NEB SOLUTION NEB ONE ×2 (13:15→13:30)
[2019-04-29] MEDS ORDERED: ALBUTEROL SULFATE 2.5 MG/0.5 ML NEB SOLUTION NEB ONE (13:15)
[2019-04-29] MEDS ORDERED: ALBUTEROL SULFATE 5 MG/ML 20 ML NEB SOLN [BULK] NEB ONE ×2 (13:18→13:30)
[2019-04-29] MEDS ORDERED: 0.9% SODIUM CHLORIDE 15 ML NEB SOLUTION NEB ONE (13:41)
[2019-04-29] MEDS ORDERED: PredniSONE 20 MG TABLET PO ONE (15:15)
[2019-04-29 15:22] VITALS: BP 131/75
== END 2019-04-29 15:49 | disposition home or self-care (01) ==
LOC: EMS 13:03
DX: J44.1 Chronic obstructive pulmonary disease with (acute) exacerbation (principal); J45.901 Unspecified asthma with (acute) exacerbation; K21.9 Gastro-esophageal reflux disease without esophagitis; E78.00 Pure hypercholesterolemia, unspecified; I10 Essential (primary) hypertension; Z88.6 Allergy status to analgesic agent; Z91.018 Allergy to other foods
CPT/HCPCS: 94640; 94644; 99285; J7512

== ENCOUNTER 2019-05-27 20:08 | Emergency (ER) | payer MEDICARE, MEDICAID ==
[~2019-05-27] VITALS: Ht 167.6 cm; Wt 109.1 kg
[~2019-05-27 20:08] MED LIST changes: -PRED15SO57 PO
[2019-05-27] MEDS ORDERED: IPRATROPIUM BROMIDE 0.5 MG/2.5 ML NEB SOLUTION NEB ONE ×4 (20:15→22:00)
[2019-05-27] MEDS ORDERED: ALBUTEROL SULFATE 2.5 MG/0.5 ML NEB SOLUTION NEB ONE (20:15)
[2019-05-27] MEDS ORDERED: 0.9% SODIUM CHLORIDE 5 ML NEB SOLUTION NEB ONE ×2 (20:24→21:58)
[2019-05-27] MEDS ORDERED: ALBUTEROL SULFATE 5 MG/ML 20 ML NEB SOLN [BULK] NEB ONE (20:30)
[2019-05-27] MEDS ORDERED: PredniSONE 20 MG TABLET PO ONE (21:30)
[2019-05-27] MEDS ORDERED: LEVALBUTEROL HCL 1.25 MG/0.5 ML NEB SOLUTION NEB ONE (22:00)
[2019-05-27 22:08] LABS: INFLUENZA TYPE A NEGATIVE FOR TYPE A (NEGATIVE); INFLUENZA TYPE B NEGATIVE FOR TYPE B (NEGATIVE)
[2019-05-27 22:47] VITALS: BP 131/63
== END 2019-05-27 23:33 | disposition home or self-care (01) ==
LOC: EMS 20:08
DX: J45.901 Unspecified asthma with (acute) exacerbation (principal); J44.9 Chronic obstructive pulmonary disease, unspecified; E78.00 Pure hypercholesterolemia, unspecified; I10 Essential (primary) hypertension; K21.9 Gastro-esophageal reflux disease without esophagitis; F10.20 Alcohol dependence, uncomplicated; Z79.899 Other long term (current) drug therapy; Z88.6 Allergy status to analgesic agent; Z88.8 Allergy status to other drugs, medicaments and biological substances; Z91.018 Allergy to other foods
CPT/HCPCS: 87804; 94644; 94645; 99285; J7512

== ENCOUNTER → 2019-06-10 | Outpatient (CLI) | payer MEDICARE, MEDICAID ==
[~2019-06-10] VITALS: Ht 152.4 cm; Wt 109.0 kg
[~2019-06-10] MED LIST changes: +MEPO100A INJ
[2019-06-10 12:12] VITALS: BP 110/63
== END | disposition home or self-care (01) ==
LOC: SRCNTR 12:11
PROVIDERS: ATTEND Internal Medicine Critical Care Medicine
DX: I10 Essential (primary) hypertension (principal); E66.9 Obesity, unspecified; E78.5 Hyperlipidemia, unspecified; J45.909 Unspecified asthma, uncomplicated
CPT/HCPCS: G0463

== ENCOUNTER 2019-06-16 18:57 | Inpatient (IN) | payer MEDICARE, MEDICAID ==
[~2019-06-16] VITALS: Ht 175.3 cm; Wt 100.0 kg
[~2019-06-16 18:57] MED LIST changes: -MEPO100A INJ
[2019-06-16] MEDS ORDERED: SODIUM CHLORIDE 0.9% 1,000 ML IV ONE (19:00)
[2019-06-16] MEDS ORDERED: MethylPREDNISolone SOD SUCC 125 MG/2 ML VIAL IVP ONE (19:00)
[2019-06-16] MEDS ORDERED: IPRATROPIUM BROMIDE 0.5 MG/2.5 ML NEB SOLUTION NEB ONE (19:00)
[2019-06-16] MEDS ORDERED: ALBUTEROL SULFATE 5 MG/ML 20 ML NEB SOLN [BULK] NEB ONE ×2 (19:00→21:00)
[2019-06-16] MEDS ORDERED: ALBUTEROL SULFATE 2.5 MG/0.5 ML NEB SOLUTION NEB ONE (19:00)
[2019-06-16 19:41] LABS: BASOPHILS % (AUTO) 0.6 % (0.0-2.0); EOSINOPHILS % (AUTO) 1.7 % (1.0-6.0); HEMATOCRIT 42.4 % (41-53); HEMOGLOBIN 14.2 g/dL (13.5-17.5); LYMPHOCYTES # (AUTO) 1.5 K/uL (1.0-4.8); LYMPHOCYTES % (AUTO) 20.5 % (22.0-44.0); MEAN CORPUSCULAR HEMOGLOBIN 30.7 pg (26.0-34.0); MEAN CORPUSCULAR HGB CONC 33.4 G/dL (31.0-37.0); MEAN CORPUSCULAR VOLUME 92 fL (80-100); MONOCYTES # (AUTO) 0.8 K/uL (0.1-1.0); NEUTROPHILS # (AUTO) 4.7 K/uL (1.8-7.7); NEUTROPHILS % (AUTO) 66.2 % (40.0-70.0); PLATELET COUNT (AUTO) 206 K/uL (150-450); RED BLOOD CELL COUNT(AUTO) 4.61 MIL/uL (4.50-5.90); RED CELL DISTRIBUTION WIDTH 14.2 % (11.5-14.5)
[2019-06-16 19:49] LABS: ANION GAP 8 mmol/L (8-16); CALCIUM, TOTAL 8.4 mg/dL (8.8-10.5); CARBON DIOXIDE 28 mmol/L (22-29); CHLORIDE 104 mmol/L (98-107); CREATININE 0.87 mg/dL (0.60-1.30); GLOMERULAR FILTR. RATE CALC > 60 mL/min (>60); GLUCOSE,RANDOM 102 mg/dL (70-110); POTASSIUM 3.5 mmol/L (3.5-5.1); SODIUM SERUM 140 mmol/L (136-145); UREA NITROGEN, BLOOD 8 mg/dL (7-18)
[2019-06-16] MEDS ORDERED: MAGNESIUM SULFATE 2 GM/WATER 50 ML IV ONE (21:15)
[2019-06-17] MEDS ORDERED: AZITHROMYCIN 500 MG/NS 250 ML IV SCH (00:15)
[2019-06-17] MEDS ORDERED: MORPHINE SULFATE 2 MG/ML SYRINGE IVP PRN (00:15)
[2019-06-17] MEDS ORDERED: IPRATROPIUM BROMIDE 0.5 MG/2.5 ML NEB SOLUTION NEB PRN (00:15)
[2019-06-17] MEDS ORDERED: ALBUTEROL SULFATE 2.5 MG/0.5 ML NEB SOLUTION NEB PRN (00:15)
[2019-06-17] MEDS ORDERED: ONDANSETRON HCL 4 MG/2 ML VIAL IVP PRN ×2 (00:15)
[2019-06-17] MEDS ORDERED: HYDROCODONE/ACETAMINOPHEN 5-325 MG TABLET PO PRN (00:15)
[2019-06-17] MEDS ORDERED: CefTRIAXone 1 GM/DEXTROSE 50 ML IV SCH (00:15)
[2019-06-17] MEDS ORDERED: ZOLPIDEM TARTRATE 5 MG TABLET PO PRN (00:15)
[2019-06-17] MEDS ORDERED: MAGNESIUM HYDROXIDE SUSPENSION 30 ML UDCUP PO PRN (00:15)
[2019-06-17] MEDS ORDERED: BISACODYL 10 MG RECTAL RECTAL SUPPOSITORY PR PRN (00:15)
[2019-06-17] MEDS ORDERED: ACETAMINOPHEN 325 MG TABLET PO PRN ×2 (00:15)
[2019-06-17 01:14] VITALS: BP 149/83
[2019-06-17] MEDS ORDERED: MEPO100A INJ (01:16)
[2019-06-17] MEDS ORDERED: SODIUM CHLORIDE 0.9% 250 ML IV ONE (01:54)
[2019-06-17] MEDS: IPRATROPIUM BROMIDE 0.5 MG/2.5 ML NEB SOLUTION NEB SCH ×3 (02:39→13:50)
[2019-06-17] MEDS: ALBUTEROL SULFATE 2.5 MG/0.5 ML NEB SOLUTION NEB SCH ×3 (02:39→13:50)
[2019-06-17 04:52] VITALS: BP 141/93
[2019-06-17] MEDS: MethylPREDNISolone SOD SUCC 125 MG/2 ML VIAL IVP SCH ×3 (06:10→18:08)
[2019-06-17 07:40] VITALS: BP 161/103
[2019-06-17 08:00] VITALS: BP 175/117
[2019-06-17] MEDS: BENZONATATE 100 MG CAPSULE PO SCH ×2 (08:24→17:22)
[2019-06-17] MEDS: HEPARIN SODIUM,PORCINE 5,000 UNITS/ML VIAL SQ SCH ×2 (08:25→17:18)
[2019-06-17] MEDS ORDERED: ATORVASTATIN CALCIUM 20 MG TABLET PO SCH (09:00)
[2019-06-17] MEDS ORDERED: BENAZEPRIL HCL 20 MG TABLET PO SCH (09:00)
[2019-06-17] MEDS ORDERED: MONTELUKAST SODIUM 10 MG TABLET PO SCH (09:00)
[2019-06-17] MEDS ORDERED: AmLODIPine BESYLATE 5 MG TABLET PO SCH (09:00)
[2019-06-17] MEDS ORDERED: GuaiFENesin SR 600 MG ER TABLET PO SCH (09:00)
[2019-06-17] MEDS ORDERED: DOCUSATE SODIUM 100 MG CAPSULE PO SCH (09:00)
[2019-06-17] MEDS ORDERED: FLUTICASONE PROPIONATE 50 MCG/SPRAY 16 GM NASAL SPRAY NASAL SCH (09:00)
[2019-06-17] MEDS ORDERED: PANTOPRAZOLE SODIUM 40 MG DR TABLET PO SCH (09:00)
[2019-06-17 11:20] VITALS: BP 156/92
[2019-06-17] MEDS ORDERED: CloNIDine HCL 0.1 MG TABLET PO SCH (12:30)
[2019-06-17 15:10] VITALS: BP 146/85
== END 2019-06-17 18:40 | disposition left against medical advice (07) | DRG 191 ==
LOC: EMS 18:57 → 6N 06-17 00:21
PROVIDERS: ADMIT Internal Medicine; ATTEND Internal Medicine
DX: J44.1 Chronic obstructive pulmonary disease with (acute) exacerbation (principal); R65.10 Systemic inflammatory response syndrome (SIRS) of non-infectious origin without acute organ dysfunction; Z88.8 Allergy status to other drugs, medicaments and biological substances; K21.9 Gastro-esophageal reflux disease without esophagitis; E78.00 Pure hypercholesterolemia, unspecified; I10 Essential (primary) hypertension; E78.5 Hyperlipidemia, unspecified; F17.200 Nicotine dependence, unspecified, uncomplicated; Z53.29 Procedure and treatment not carried out because of patient's decision for other reasons
CPT/HCPCS: 83735; 93005; 94060; 94640; 94644; 94645; J0456; J0696; J1644; J2930; J3475; J7030; J7050

== ENCOUNTER → 2019-07-04 | Outpatient (CLI) | payer MEDICARE, MEDICAID ==
[~2019-07-04] VITALS: Ht 157.5 cm; Wt 109.0 kg
[~2019-07-04] MED LIST changes: +MEPO100A INJ
[2019-07-04 11:10] VITALS: BP 129/72
== END | disposition home or self-care (01) ==
LOC: SRCNTR 11:09
PROVIDERS: ATTEND Hospitalist
DX: J45.909 Unspecified asthma, uncomplicated (principal); I10 Essential (primary) hypertension; E78.5 Hyperlipidemia, unspecified; E66.9 Obesity, unspecified
CPT/HCPCS: 93005; G0463

== ENCOUNTER → 2019-07-04 | Outpatient (CLI) | payer MEDICARE, MEDICAID | END | disposition home or self-care (01) | LOC: LABPV 12:31 | PROVIDERS: ATTEND Hospitalist | DX: R73.9 Hyperglycemia, unspecified (principal) | CPT/HCPCS: 83036 ==

== ENCOUNTER 2019-07-17 01:45 | Emergency (ER) | payer MEDICARE, MEDICAID ==
[~2019-07-17] VITALS: Ht 167.6 cm; Wt 113.6 kg
[2019-07-17] MEDS ORDERED: MethylPREDNISolone SOD SUCC 125 MG/2 ML VIAL IVP ONE (02:00)
[2019-07-17] MEDS ORDERED: ALBUTEROL SULFATE 5 MG/ML 20 ML NEB SOLN [BULK] NEB ONE (02:15)
[2019-07-17] MEDS ORDERED: IPRATROPIUM BROMIDE 0.5 MG/2.5 ML NEB SOLUTION NEB ONE (02:15)
[2019-07-17] MEDS ORDERED: ALBUTEROL SULFATE HFA 90 MCG/PUFF 8 GM INHALER IH ONE (02:15)
[2019-07-17] MEDS ORDERED: PredniSONE 20 MG TABLET PO ONE (02:15)
[2019-07-17 02:47] VITALS: BP 128/73
[2019-07-17 03:42] LABS: INFLUENZA TYPE A NEGATIVE FOR TYPE A (NEGATIVE); INFLUENZA TYPE B NEGATIVE FOR TYPE B (NEGATIVE)
[2019-08-12] MEDS ORDERED: CLON0.1T83 PO (09:36)
[2019-08-16] MEDS ORDERED: PRED20 PO ×3 (13:05→13:15)
[2019-08-16] MEDS ORDERED: PRED10 PO (13:15)
== END 2019-07-17 03:12 | disposition home or self-care (01) ==
LOC: EMS 01:46
DX: J45.909 Unspecified asthma, uncomplicated (principal); I10 Essential (primary) hypertension; E78.00 Pure hypercholesterolemia, unspecified; K21.9 Gastro-esophageal reflux disease without esophagitis; Z20.828 Contact with and (suspected) exposure to other viral communicable diseases; Z88.6 Allergy status to analgesic agent; Z91.018 Allergy to other foods; Z79.899 Other long term (current) drug therapy
CPT/HCPCS: 71045; 87635; 87804; 94640; 99284; J7512; J3535

== ENCOUNTER 2019-07-27 04:47 | Emergency (ER) | payer MEDICARE, MEDICAID ==
[~2019-07-27] VITALS: Ht 167.6 cm; Wt 109.1 kg
[2019-07-27 04:51] VITALS: BP 128/80
[2019-07-27] MEDS ORDERED: ALBUTEROL SULFATE 5 MG/ML 20 ML NEB SOLN [BULK] NEB ONE (04:55)
[2019-07-27] MEDS ORDERED: MethylPREDNISolone SOD SUCC 125 MG/2 ML VIAL IVP ONE (05:00)
[2019-07-27] MEDS ORDERED: IPRATROPIUM BROMIDE 0.5 MG/2.5 ML NEB SOLUTION NEB ONE ×2 (05:00)
[2019-07-27] MEDS ORDERED: 0.9% SODIUM CHLORIDE 15 ML NEB SOLUTION NEB ONE (05:05)
[2019-07-27 05:49] LABS: BASOPHILS % (AUTO) 0.6 % (0.0-2.0); EOSINOPHILS % (AUTO) 0.6 % (1.0-6.0); HEMATOCRIT 46.5 % (41-53); HEMOGLOBIN 15.5 g/dL (13.5-17.5); LYMPHOCYTES % (AUTO) 25.2 % (22.0-44.0); MEAN CORPUSCULAR HEMOGLOBIN 29.8 pg (26.0-34.0); MEAN CORPUSCULAR HGB CONC 33.3 G/dL (31.0-37.0); MEAN CORPUSCULAR VOLUME 89 fL (80-100); MONOCYTES # (AUTO) 1.3 K/uL (0.1-1.0); MONOCYTES % (AUTO) 15.8 % (2.0-9.0); NEUTROPHILS # (AUTO) 4.6 K/uL (1.8-7.7); NEUTROPHILS % (AUTO) 57.8 % (40.0-70.0); PLATELET COUNT (AUTO) 285 K/uL (150-450); RED BLOOD CELL COUNT(AUTO) 5.19 MIL/uL (4.50-5.90); RED CELL DISTRIBUTION WIDTH 13.7 % (11.5-14.5)
[2019-07-27] MEDS ORDERED: 0.9% SODIUM CHLORIDE 5 ML NEB SOLUTION NEB ONE (05:59)
[2019-07-27 06:00] LABS: ANION GAP 9 mmol/L (8-16); CALCIUM, TOTAL 8.9 mg/dL (8.8-10.5); CARBON DIOXIDE 28 mmol/L (22-29); CHLORIDE 104 mmol/L (98-107); CREATININE 0.99 mg/dL (0.60-1.30); GLOMERULAR FILTR. RATE CALC > 60 mL/min (>60); GLUCOSE,RANDOM 112 mg/dL (70-110); POTASSIUM 3.4 mmol/L (3.5-5.1); SODIUM SERUM 141 mmol/L (136-145); UREA NITROGEN, BLOOD 7 mg/dL (7-18)
[2019-07-27 06:06] LABS: ALANINE AMINOTRANSFERASE 62 U/L (12-78); ALKALINE PHOSPHATASE 83 U/L (46-116); ASPARTATE AMINOTRANSFERASE 37 U/L (15-37); BILIRUBIN,TOTAL 0.9 mg/dL (0.1-1.0); TOTAL PROTEIN, SERUM 7.5 g/dL (6.4-8.2)
== END 2019-07-27 08:29 | disposition home or self-care (01) ==
LOC: EMS 04:47
DX: J44.1 Chronic obstructive pulmonary disease with (acute) exacerbation (principal); J45.901 Unspecified asthma with (acute) exacerbation; K21.9 Gastro-esophageal reflux disease without esophagitis; E78.00 Pure hypercholesterolemia, unspecified; I10 Essential (primary) hypertension; Z88.6 Allergy status to analgesic agent; Z91.018 Allergy to other foods
CPT/HCPCS: 36415; 71045; 80053; 85025; 94644; 96374; 99285; J2930; 94060

== ENCOUNTER → 2019-10-03 | Outpatient (CLI) | payer MEDICARE, MEDICAID ==
[~2019-10-03] MED LIST changes: +AMLO-257 PO; -AMLO5TAB9 PO; +CLON0.1T83 PO; +LEVO-72 PO; -MEPO100A INJ; +PRED10 PO; +PRED20 PO
== END | disposition home or self-care (01) ==
LOC: SRCNTR 15:16
PROVIDERS: ATTEND Hospitalist
DX: I10 Essential (primary) hypertension (principal); E78.5 Hyperlipidemia, unspecified; E66.01 Morbid (severe) obesity due to excess calories; J45.909 Unspecified asthma, uncomplicated; K21.9 Gastro-esophageal reflux disease without esophagitis
CPT/HCPCS: Q3014

== ENCOUNTER 2019-10-26 23:52 | Emergency (ER) | payer MEDICARE, MEDICAID ==
[~2019-10-26] VITALS: Ht 167.6 cm; Wt 104.5 kg
[~2019-10-26 23:52] MED LIST changes: -LEVO-72 PO
[2019-10-27] MEDS ORDERED: ALBUTEROL SULFATE 5 MG/ML 20 ML NEB SOLN [BULK] NEB ONE (00:30)
[2019-10-27] MEDS ORDERED: IPRATROPIUM BROMIDE 0.5 MG/2.5 ML NEB SOLUTION NEB ONE ×2 (00:30→01:45)
[2019-10-27] MEDS ORDERED: LEVALBUTEROL HCL 1.25 MG/0.5 ML NEB SOLUTION NEB ONE (01:45)
[2019-10-27] MEDS ORDERED: PredniSONE 20 MG TABLET PO ONE (01:45)
[2019-10-27 03:51] VITALS: BP 150/57
== END 2019-10-27 04:01 | disposition home or self-care (01) ==
LOC: EMS 23:52
DX: J44.1 Chronic obstructive pulmonary disease with (acute) exacerbation (principal); J45.901 Unspecified asthma with (acute) exacerbation; I10 Essential (primary) hypertension; E78.00 Pure hypercholesterolemia, unspecified
CPT/HCPCS: 71045; 94060; 94644; 94645; 99285; J7512; J7611; Z7610

== ENCOUNTER → 2020-06-18 | Outpatient (CLI) | payer MEDICARE, MEDICAID ==
[~2020-06-18] VITALS: Ht 154.9 cm; Wt 111.0 kg
[~2020-06-18] MED LIST changes: -CLON0.1T83 PO; +MONT-35 PO; -MONT10TA21 PO; -PRED20 PO
[2020-06-18 15:14] VITALS: BP 128/74
== END | disposition home or self-care (01) ==
LOC: SRCNTR 11:02
PROVIDERS: ATTEND Hospitalist
DX: I10 Essential (primary) hypertension (principal); E78.5 Hyperlipidemia, unspecified; K21.9 Gastro-esophageal reflux disease without esophagitis; J45.909 Unspecified asthma, uncomplicated; E66.9 Obesity, unspecified
CPT/HCPCS: G0463

== ENCOUNTER 2020-07-22 16:04 | Inpatient (IN) | payer MEDICARE, MEDICAID ==
[~2020-07-22] VITALS: Ht 167.6 cm; Wt 112.9 kg
[2020-07-22] MEDS ORDERED: MethylPREDNISolone SOD SUCC 125 MG/2 ML VIAL IVP ONE (16:15)
[2020-07-22] MEDS ORDERED: ALBUTEROL SULFATE 5 MG/ML 20 ML NEB SOLN [BULK] NEB ONE ×2 (16:15→19:00)
[2020-07-22] MEDS ORDERED: IPRATROPIUM BROMIDE 0.5 MG/2.5 ML NEB SOLUTION NEB ONE (16:15)
[2020-07-22] MEDS ORDERED: MAGNESIUM SULFATE 2 GM/WATER 50 ML IV ONE (16:15)
[2020-07-22] MEDS ORDERED: ACETAMINOPHEN 500 MG TABLET PO ONE (16:45)
[2020-07-22] MEDS ORDERED: MORPHINE SULFATE 4 MG/ML SYRINGE IVP PRN (17:15)
[2020-07-22] MEDS ORDERED: ONDANSETRON HCL 4 MG/2 ML VIAL IVP PRN ×2 (17:15→18:00)
[2020-07-22 17:17] LABS: BASOPHILS % (AUTO) 1.4 % (0.0-2.0); EOSINOPHILS % (AUTO) 13.7 % (1.0-6.0); HEMATOCRIT 39.7 % (41-53); HEMOGLOBIN 12.7 g/dL (13.5-17.5); LYMPHOCYTES # (AUTO) 1.4 K/uL (1.0-4.8); LYMPHOCYTES % (AUTO) 13.5 % (22.0-44.0); MEAN CORPUSCULAR HEMOGLOBIN 27.5 pg (26.0-34.0); MEAN CORPUSCULAR VOLUME 86 fL (80-100); MONOCYTES # (AUTO) 0.9 K/uL (0.1-1.0); MONOCYTES % (AUTO) 8.7 % (2.0-9.0); NEUTROPHILS # (AUTO) 6.7 K/uL (1.8-7.7); NEUTROPHILS % (AUTO) 62.7 % (40.0-70.0); PLATELET COUNT (AUTO) 262 K/uL (150-450); RED BLOOD CELL COUNT(AUTO) 4.63 MIL/uL (4.50-5.90); RED CELL DISTRIBUTION WIDTH 16.9 % (11.5-14.5)
[2020-07-22] MEDS ORDERED: BISACODYL 10 MG RECTAL RECTAL SUPPOSITORY PR PRN (18:00)
[2020-07-22] MEDS ORDERED: ALBUTEROL SULFATE 2.5 MG/0.5 ML NEB SOLUTION NEB PRN (18:00)
[2020-07-22] MEDS ORDERED: ACETAMINOPHEN 325 MG TABLET PO PRN (18:00)
[2020-07-22] MEDS ORDERED: ZOLPIDEM TARTRATE 5 MG TABLET PO PRN (18:00)
[2020-07-22] MEDS ORDERED: IPRATROPIUM BROMIDE 0.5 MG/2.5 ML NEB SOLUTION NEB PRN (18:00)
[2020-07-22] MEDS ORDERED: MORPHINE SULFATE 2 MG/ML SYRINGE IVP PRN (18:00)
[2020-07-22] MEDS ORDERED: MAGNESIUM HYDROXIDE SUSPENSION 30 ML UDCUP PO PRN (18:00)
[2020-07-22] MEDS: MethylPREDNISolone SOD SUCC 125 MG/2 ML VIAL IVP SCH ×2 (18:09→23:41)
[2020-07-22 18:12] LABS: ANION GAP 14 mmol/L (8-16); CALCIUM, TOTAL 8.7 mg/dL (8.8-10.5); CARBON DIOXIDE 27 mmol/L (22-29); CHLORIDE 102 mmol/L (98-107); GLOMERULAR FILTR. RATE CALC > 60 mL/min (>60); GLUCOSE,RANDOM 110 mg/dL (70-110); SODIUM SERUM 143 mmol/L (136-145); UREA NITROGEN, BLOOD 8 mg/dL (7-18)
[2020-07-22 18:17] LABS: POTASSIUM 2.6 mmol/L (3.5-5.1)
[2020-07-22 18:24] LABS: COVID AG,FIA SOURCE NASOPHARYNGEAL
[2020-07-22] MEDS ORDERED: POTASSIUM CHLORIDE 20 MEQ ER TABLET PO ONE (18:45)
[2020-07-22] MEDS ORDERED: 0.9% SODIUM CHLORIDE 5 ML NEB SOLUTION NEB ONE (18:47)
[2020-07-22] MEDS: IPRATROPIUM BROMIDE 0.5 MG/2.5 ML NEB SOLUTION NEB SCH ×4 (18:50→22:41)
[2020-07-22] MEDS: ALBUTEROL SULFATE 2.5 MG/0.5 ML NEB SOLUTION NEB SCH ×4 (18:50→22:41)
[2020-07-22] MEDS ORDERED: ALBUTEROL SULFATE 2.5 MG/0.5 ML NEB SOLUTION NEB SCH (19:00)
[2020-07-22] MEDS ORDERED: IPRATROPIUM BROMIDE 0.5 MG/2.5 ML NEB SOLUTION NEB SCH (19:00)
[2020-07-22] MEDS ORDERED: 0.9% SODIUM CHLORIDE 15 ML NEB SOLUTION NEB ONE (19:03)
[2020-07-22 20:41] VITALS: BP 148/85
[2020-07-22] MEDS: DOCUSATE SODIUM 100 MG CAPSULE PO SCH (21:00)
[2020-07-22 22:01] VITALS: BP 129/94
[2020-07-22] MEDS: FLUTICASONE PROPIONATE 50 MCG/SPRAY 16 GM NASAL SPRAY NASAL SCH (23:40)
[2020-07-22] MEDS: HEPARIN SODIUM,PORCINE 5,000 UNITS/ML VIAL SQ SCH (23:41)
[2020-07-22] MEDS: HYDROmorphone 2 MG/ML VIAL IVP PRN (23:41)
[2020-07-23] VITALS: BP 134/83
[2020-07-23] MEDS: ALBUTEROL SULFATE 2.5 MG/0.5 ML NEB SOLUTION NEB SCH ×5 (03:26→20:19)
[2020-07-23] MEDS: IPRATROPIUM BROMIDE 0.5 MG/2.5 ML NEB SOLUTION NEB SCH ×5 (03:26→20:19)
[2020-07-23] MEDS: HYDROmorphone 2 MG/ML VIAL IVP PRN ×5 (03:56→21:08)
[2020-07-23 04:25] VITALS: BP 140/79
[2020-07-23] MEDS: MethylPREDNISolone SOD SUCC 125 MG/2 ML VIAL IVP SCH ×4 (06:24→23:01)
[2020-07-23 07:38] VITALS: BP 138/79
[2020-07-23] MEDS: DOCUSATE SODIUM 100 MG CAPSULE PO SCH ×2 (08:26→20:19)
[2020-07-23] MEDS: AmLODIPine BESYLATE 5 MG TABLET PO SCH (08:27)
[2020-07-23] MEDS: PANTOPRAZOLE SODIUM 40 MG DR TABLET PO SCH (08:27)
[2020-07-23] MEDS: ATORVASTATIN CALCIUM 20 MG TABLET PO SCH (08:27)
[2020-07-23] MEDS: HEPARIN SODIUM,PORCINE 5,000 UNITS/ML VIAL SQ SCH ×3 (08:27→23:00)
[2020-07-23] MEDS: MONTELUKAST SODIUM 10 MG TABLET PO SCH (08:27)
[2020-07-23] MEDS: FLUTICASONE PROPIONATE 50 MCG/SPRAY 16 GM NASAL SPRAY NASAL SCH ×2 (08:28→20:19)
[2020-07-23] MEDS: BENAZEPRIL HCL 20 MG TABLET PO SCH (10:23)
[2020-07-23 12:31] VITALS: BP 139/87
[2020-07-23 16:02] VITALS: BP 138/76
[2020-07-23 19:28] VITALS: BP 119/71
[2020-07-23] MEDS: BUDESONIDE 0.5 MG/2 ML NEB SOLUTION NEB SCH (20:19)
[2020-07-23] MEDS ORDERED: POTASSIUM CHLORIDE 20 MEQ ER TABLET PO PRN (21:45)
[2020-07-23] MEDS ORDERED: SODIUM CHLORIDE 0.9% 250 ML IV ONE (21:58)
[2020-07-23] MEDS: POTASSIUM CHL 10 MEQ/WATER 50 ML IV PRN (22:49)
[2020-07-24] VITALS (7 sets, daily range): BP systolic 101–145; BP diastolic 57–93
[2020-07-24] MEDS: IPRATROPIUM BROMIDE 0.5 MG/2.5 ML NEB SOLUTION NEB SCH ×7 (00:24→23:43)
[2020-07-24] MEDS: ALBUTEROL SULFATE 2.5 MG/0.5 ML NEB SOLUTION NEB SCH ×7 (00:24→23:43)
[2020-07-24] MEDS: POTASSIUM CHL 10 MEQ/WATER 50 ML IV PRN ×3 (00:40→04:19)
[2020-07-24] MEDS: HYDROmorphone 2 MG/ML VIAL IVP PRN ×3 (01:16→10:00)
[2020-07-24] MEDS: MethylPREDNISolone SOD SUCC 125 MG/2 ML VIAL IVP SCH (06:51)
[2020-07-24 06:56] LABS: MAGNESIUM 2.2 mg/dL (1.80-2.40); POTASSIUM 3.1 mmol/L (3.5-5.1)
[2020-07-24] MEDS: AmLODIPine BESYLATE 5 MG TABLET PO SCH (08:49)
[2020-07-24] MEDS: BENAZEPRIL HCL 20 MG TABLET PO SCH (08:49)
[2020-07-24] MEDS: PANTOPRAZOLE SODIUM 40 MG DR TABLET PO SCH (08:49)
[2020-07-24] MEDS: DOCUSATE SODIUM 100 MG CAPSULE PO SCH ×2 (08:49→21:43)
[2020-07-24] MEDS: MONTELUKAST SODIUM 10 MG TABLET PO SCH (08:49)
[2020-07-24] MEDS: ATORVASTATIN CALCIUM 20 MG TABLET PO SCH (08:50)
[2020-07-24] MEDS: FLUTICASONE PROPIONATE 50 MCG/SPRAY 16 GM NASAL SPRAY NASAL SCH ×2 (08:50→21:44)
[2020-07-24] MEDS: HEPARIN SODIUM,PORCINE 5,000 UNITS/ML VIAL SQ SCH ×3 (08:58→23:15)
[2020-07-24] MEDS: BUDESONIDE 0.5 MG/2 ML NEB SOLUTION NEB SCH ×2 (09:26→19:12)
[2020-07-24] MEDS: PredniSONE 20 MG TABLET PO SCH (12:21)
[2020-07-24] MEDS: OxyCODONE HCL/ACETAMINOPHEN 5-325 MG TABLET PO PRN ×2 (16:45→21:44)
[2020-07-25] MEDS: OxyCODONE HCL/ACETAMINOPHEN 5-325 MG TABLET PO PRN ×6 (01:40→23:03)
[2020-07-25] MEDS: ALBUTEROL SULFATE 2.5 MG/0.5 ML NEB SOLUTION NEB SCH ×6 (02:02→23:00)
[2020-07-25] MEDS: IPRATROPIUM BROMIDE 0.5 MG/2.5 ML NEB SOLUTION NEB SCH ×6 (02:02→23:00)
[2020-07-25 05:46] VITALS: BP 133/75
[2020-07-25 07:45] VITALS: BP 128/73
[2020-07-25] MEDS: BUDESONIDE 0.5 MG/2 ML NEB SOLUTION NEB SCH ×2 (08:35→20:13)
[2020-07-25] MEDS: AmLODIPine BESYLATE 5 MG TABLET PO SCH (08:56)
[2020-07-25] MEDS: DOCUSATE SODIUM 100 MG CAPSULE PO SCH ×2 (08:56→20:46)
[2020-07-25] MEDS: PredniSONE 20 MG TABLET PO SCH (08:56)
[2020-07-25] MEDS: MONTELUKAST SODIUM 10 MG TABLET PO SCH (08:57)
[2020-07-25] MEDS: ATORVASTATIN CALCIUM 20 MG TABLET PO SCH (08:57)
[2020-07-25] MEDS: HEPARIN SODIUM,PORCINE 5,000 UNITS/ML VIAL SQ SCH ×2 (08:58→15:58)
[2020-07-25] MEDS: PANTOPRAZOLE SODIUM 40 MG DR TABLET PO SCH (08:58)
[2020-07-25] MEDS: BENAZEPRIL HCL 20 MG TABLET PO SCH (08:58)
[2020-07-25] MEDS: FLUTICASONE PROPIONATE 50 MCG/SPRAY 16 GM NASAL SPRAY NASAL SCH ×2 (08:58→20:43)
[2020-07-25] MEDS: BENZONATATE 100 MG CAPSULE PO PRN (10:02)
[2020-07-25 11:11] VITALS: BP 131/79
[2020-07-25] MEDS: AZITHROMYCIN 500 MG TABLET PO SCH (11:23)
[2020-07-25 15:19] VITALS: BP 128/69
[2020-07-25] MEDS: GABAPENTIN 100 MG CAPSULE PO SCH ×2 (15:58→20:43)
[2020-07-25 20:09] VITALS: BP 126/71
[2020-07-26] MEDS: HEPARIN SODIUM,PORCINE 5,000 UNITS/ML VIAL SQ SCH ×2 (00:07→08:51)
[2020-07-26 00:08] VITALS: BP 120/69
[2020-07-26] MEDS: ALBUTEROL SULFATE 2.5 MG/0.5 ML NEB SOLUTION NEB SCH ×3 (01:17→11:41)
[2020-07-26] MEDS: IPRATROPIUM BROMIDE 0.5 MG/2.5 ML NEB SOLUTION NEB SCH ×3 (01:17→11:41)
[2020-07-26 04:10] VITALS: BP 99/65
[2020-07-26] MEDS: BENZONATATE 100 MG CAPSULE PO PRN (07:03)
[2020-07-26] MEDS ORDERED: GuaiFENesin/D-METHORPHAN [SUGAR-FREE] 200-20MG/10 ML SYRUP UDCUP PO PRN (08:45)
[2020-07-26] MEDS: ATORVASTATIN CALCIUM 20 MG TABLET PO SCH (08:51)
[2020-07-26] MEDS: MONTELUKAST SODIUM 10 MG TABLET PO SCH (08:51)
[2020-07-26] MEDS: OxyCODONE HCL/ACETAMINOPHEN 5-325 MG TABLET PO PRN ×2 (08:51→12:06)
[2020-07-26] MEDS: PANTOPRAZOLE SODIUM 40 MG DR TABLET PO SCH (08:51)
[2020-07-26] MEDS: PredniSONE 20 MG TABLET PO SCH (08:52)
[2020-07-26] MEDS: AZITHROMYCIN 500 MG TABLET PO SCH (08:52)
[2020-07-26] MEDS: DOCUSATE SODIUM 100 MG CAPSULE PO SCH (09:00)
[2020-07-26] MEDS: FLUTICASONE PROPIONATE 50 MCG/SPRAY 16 GM NASAL SPRAY NASAL SCH (09:00)
[2020-07-26] MEDS: GABAPENTIN 100 MG CAPSULE PO SCH (09:24)
[2020-07-26] MEDS: BUDESONIDE 0.5 MG/2 ML NEB SOLUTION NEB SCH (09:29)
== END 2020-07-26 12:50 | disposition home or self-care (01) | DRG 191 ==
LOC: EMS 16:04 → 5S 17:48 → UNDOADMIN 17:48
PROVIDERS: ADMIT Hospitalist; ATTEND Hospitalist
DX: J44.1 Chronic obstructive pulmonary disease with (acute) exacerbation (principal); J45.51 Severe persistent asthma with (acute) exacerbation; Z68.41 Body mass index [BMI] 40.0-44.9, adult; E78.5 Hyperlipidemia, unspecified; I10 Essential (primary) hypertension; K21.9 Gastro-esophageal reflux disease without esophagitis; E78.00 Pure hypercholesterolemia, unspecified; Z82.5 Family history of asthma and other chronic lower respiratory diseases; Z88.8 Allergy status to other drugs, medicaments and biological substances; Z96.653 Presence of artificial knee joint, bilateral; Z85.47 Personal history of malignant neoplasm of testis; Z82.49 Family history of ischemic heart disease and other diseases of the circulatory system; Z83.3 Family history of diabetes mellitus; Z80.42 Family history of malignant neoplasm of prostate; Z80.3 Family history of malignant neoplasm of breast; E87.6 Hypokalemia; M54.5 Low back pain; F10.20 Alcohol dependence, uncomplicated; Y90.9 Presence of alcohol in blood, level not specified; E66.01 Morbid (severe) obesity due to excess calories; M19.90 Unspecified osteoarthritis, unspecified site; Z20.822 Contact with and (suspected) exposure to COVID-19
CPT/HCPCS: 83735; 84132; 87426; 93005; 94640; 94644; 94645; 97116; 97161; 99291; A9575; J1170; J1644; J2270; J2930; J3475; J3480; J7050; 36415-L1; 36415-TC; 71045-TC; J7611; J7613

== ENCOUNTER 2020-09-14 14:15 | Emergency (ER) | payer MEDICARE, MEDICAID ==
[~2020-09-14] VITALS: Ht 167.6 cm; Wt 104.5 kg
[~2020-09-14 14:15] MED LIST changes: -AMLO-257 PO; +ATOR20TA65 PO; -ATOR20TA86 PO; +BENZ200C53 PO; +CLON-465 PO; +GUAIF600 PO; +POTA-92 PO; -PRED10 PO; +PRED10TA3 PO; +PRED20TA3 PO; +PRED5TAB PO
[2020-09-14] MEDS ORDERED: PredniSONE 20 MG TABLET PO ONE (14:45)
[2020-09-14] MEDS ORDERED: IPRATROPIUM BROMIDE 0.5 MG/2.5 ML NEB SOLUTION NEB ONE (14:45)
[2020-09-14] MEDS ORDERED: ALBUTEROL SULFATE 5 MG/ML 20 ML NEB SOLN [BULK] NEB ONE (14:45)
[2020-09-14] MEDS ORDERED: MethylPREDNISolone SOD SUCC 125 MG/2 ML VIAL IVP ONE (15:00)
[2020-09-14] MEDS ORDERED: HYDROCODONE/ACETAMINOPHEN 5-325 MG TABLET PO ONE (15:00)
[2020-09-14 15:56] VITALS: BP 151/100
== END 2020-09-14 16:06 | disposition home or self-care (01) ==
LOC: EMS 14:19
DX: J44.1 Chronic obstructive pulmonary disease with (acute) exacerbation (principal); J45.901 Unspecified asthma with (acute) exacerbation; G89.29 Other chronic pain; M54.9 Dorsalgia, unspecified; K21.9 Gastro-esophageal reflux disease without esophagitis; E78.00 Pure hypercholesterolemia, unspecified; Z88.6 Allergy status to analgesic agent; Z91.018 Allergy to other foods
CPT/HCPCS: 94644; 96374; 99291; J2930; J7512

== ENCOUNTER → 2020-09-16 | Outpatient (CLI) | payer MEDICARE, MEDICAID ==
[~2020-09-16] MED LIST changes: -PRED10TA3 PO; -PRED20TA3 PO; -PRED5TAB PO
== END | disposition home or self-care (01) ==
LOC: SRCNTR 12:03
PROVIDERS: ATTEND Hospitalist
DX: M54.5 Low back pain (principal); I10 Essential (primary) hypertension; E78.5 Hyperlipidemia, unspecified; M25.552 Pain in left hip
CPT/HCPCS: Q3014

== ENCOUNTER 2020-09-27 22:28 | Emergency (ER) | payer MEDICARE, MEDICAID ==
[~2020-09-27] VITALS: Ht 167.6 cm; Wt 104.5 kg
[2020-09-27] MEDS ORDERED: ALBUTEROL SULFATE 5 MG/ML 20 ML NEB SOLN [BULK] NEB ONE (22:45)
[2020-09-27] MEDS ORDERED: MethylPREDNISolone SOD SUCC 125 MG/2 ML VIAL IVP ONE (22:45)
[2020-09-28] MEDS ORDERED: LEVALBUTEROL HCL 1.25 MG/0.5 ML NEB SOLUTION NEB ONE ×2 (00:15)
[2020-09-28] MEDS ORDERED: IPRATROPIUM BROMIDE 0.5 MG/2.5 ML NEB SOLUTION NEB ONE ×2 (00:15)
[2020-09-28 00:49] VITALS: BP 118/67
== END 2020-09-28 01:46 | disposition home or self-care (01) ==
LOC: EMS 22:31
DX: J45.901 Unspecified asthma with (acute) exacerbation (principal); K21.9 Gastro-esophageal reflux disease without esophagitis; E78.00 Pure hypercholesterolemia, unspecified; I10 Essential (primary) hypertension; G89.29 Other chronic pain; Z88.6 Allergy status to analgesic agent; Z91.018 Allergy to other foods
CPT/HCPCS: 71045; 94640; 94644; 94645; 96374; 99285; J2930; Z7610

== ENCOUNTER → 2020-09-30 | Outpatient (CLI) | payer MEDICARE, MEDICAID ==
[~2020-09-30] VITALS: Ht 157.5 cm; Wt 109.0 kg
[2020-09-30 11:27] VITALS: BP 111/67
== END | disposition home or self-care (01) ==
LOC: SRCNTR 10:29
PROVIDERS: ATTEND Internal Medicine Critical Care Medicine
DX: J45.51 Severe persistent asthma with (acute) exacerbation (principal); E66.01 Morbid (severe) obesity due to excess calories; E78.5 Hyperlipidemia, unspecified; I10 Essential (primary) hypertension; Z79.899 Other long term (current) drug therapy; Z88.8 Allergy status to other drugs, medicaments and biological substances; Z98.890 Other specified postprocedural states
CPT/HCPCS: G0463

== ENCOUNTER → 2020-10-21 | Outpatient (CLI) | payer MEDICARE, MEDICAID ==
[~2020-10-21] VITALS: Ht 154.9 cm; Wt 109.3 kg
[2020-10-21 10:30] VITALS: BP 133/78
== END | disposition home or self-care (01) ==
LOC: SRCNTR 09:56
PROVIDERS: ATTEND Hospitalist
DX: I10 Essential (primary) hypertension (principal); E78.5 Hyperlipidemia, unspecified; J45.909 Unspecified asthma, uncomplicated; G89.29 Other chronic pain; M54.5 Low back pain; M25.552 Pain in left hip
CPT/HCPCS: G0463

== ENCOUNTER → 2020-11-24 | Outpatient (CLI) | payer MEDICARE, MEDICAID ==
[~2020-11-24] VITALS: Ht 157.5 cm; Wt 101.0 kg
[~2020-11-24] MED LIST changes: +ACET-784 PO; +AMLO10TA55 PO; -AUD NEB; -CLON-465 PO; +CLON0.1T2 PO; +FLUO5DRO OU; +HYDR2TAB8 PO; +IPRA3AMP24 PO; +PRED20 PO
[2020-11-24 09:50] VITALS: BP 104/60
== END | disposition home or self-care (01) ==
LOC: SRCNTR 09:20
PROVIDERS: ATTEND Internal Medicine Critical Care Medicine
DX: J45.51 Severe persistent asthma with (acute) exacerbation (principal); I10 Essential (primary) hypertension; E78.5 Hyperlipidemia, unspecified; E66.01 Morbid (severe) obesity due to excess calories
CPT/HCPCS: G0463

== ENCOUNTER → 2020-12-16 | Outpatient (CLI) | payer MEDICARE, MEDICAID ==
[2020-12-16 11:48] VITALS: BP 131/81
== END | disposition home or self-care (01) ==
LOC: SRCNTR 09:55
PROVIDERS: ATTEND Hospitalist
DX: I10 Essential (primary) hypertension (principal); E78.5 Hyperlipidemia, unspecified; J45.909 Unspecified asthma, uncomplicated; G89.29 Other chronic pain; M54.5 Low back pain; M25.552 Pain in left hip
CPT/HCPCS: G0463

== ENCOUNTER → 2021-02-04 | Outpatient (CLI) | payer MEDICARE, MEDICAID ==
[~2021-02-04] VITALS: Ht 149.9 cm; Wt 102.0 kg
[~2021-02-04] MED LIST changes: +MEPO100V SQ
[2021-02-04 15:00] VITALS: BP 119/79
== END | disposition home or self-care (01) ==
LOC: SRCNTR 11:18
PROVIDERS: ATTEND Hospitalist
DX: I10 Essential (primary) hypertension (principal); J45.909 Unspecified asthma, uncomplicated; E78.5 Hyperlipidemia, unspecified; G89.29 Other chronic pain; M54.50 Low back pain, unspecified; M25.552 Pain in left hip
CPT/HCPCS: G0463; Z7500

== ENCOUNTER → 2021-02-11 | Outpatient (CLI) | payer MEDICARE, MEDICAID ==
[~2021-02-11] MED LIST changes: -MEPO100V SQ
[2021-02-11 12:09] LABS: BASOPHILS % (AUTO) 0.5 % (0.0-2.0); EOSINOPHILS % (AUTO) 0.6 % (1.0-6.0); HEMATOCRIT 41.8 % (41-53); HEMOGLOBIN 14.1 g/dL (13.5-17.5); LYMPHOCYTES # (AUTO) 1.4 K/uL (1.0-4.8); LYMPHOCYTES % (AUTO) 16.4 % (22.0-44.0); MEAN CORPUSCULAR HEMOGLOBIN 27.9 pg (26.0-34.0); MEAN CORPUSCULAR HGB CONC 33.7 G/dL (31.0-37.0); MEAN CORPUSCULAR VOLUME 83 fL (80-100); MONOCYTES # (AUTO) 0.7 K/uL (0.1-1.0); MONOCYTES % (AUTO) 7.9 % (2.0-9.0); NEUTROPHILS # (AUTO) 6.3 K/uL (1.8-7.7); NEUTROPHILS % (AUTO) 74.6 % (40.0-70.0); PLATELET COUNT (AUTO) 241 K/uL (150-450); RED BLOOD CELL COUNT(AUTO) 5.06 MIL/uL (4.50-5.90); RED CELL DISTRIBUTION WIDTH 15.4 % (11.5-14.5)
[2021-02-11 12:23] LABS: ALANINE AMINOTRANSFERASE 21 U/L (12-78); ALBUMIN 3.2 g/dL (3.4-5.0); ALKALINE PHOSPHATASE 93 U/L (46-116); ANION GAP 10 mmol/L (8-16); ASPARTATE AMINOTRANSFERASE 17 U/L (15-37); BILIRUBIN,TOTAL 0.7 mg/dL (0.1-1.0); CALCIUM, TOTAL 8.5 mg/dL (8.8-10.5); CARBON DIOXIDE 30 mmol/L (22-29); CHLORIDE 104 mmol/L (98-107); CREATININE 0.98 mg/dL (0.60-1.30); GLOMERULAR FILTR. RATE CALC > 60 mL/min (>60); GLUCOSE,RANDOM 111 mg/dL (70-110); SODIUM SERUM 144 mmol/L (136-145); TOTAL PROTEIN, SERUM 6.9 g/dL (6.4-8.2); UREA NITROGEN, BLOOD 10 mg/dL (7-18)
[2021-02-11 13:07] LABS: POTASSIUM 2.8 mmol/L (3.5-5.1)
== END | disposition home or self-care (01) ==
LOC: LABPV 08:44
PROVIDERS: ATTEND Hospitalist
DX: Z01.89 Encounter for other specified special examinations (principal); R59.9 Enlarged lymph nodes, unspecified
CPT/HCPCS: 80053; 85025

== ENCOUNTER 2021-02-15 16:20 | Emergency (ER) | payer MEDICARE, MEDICAID ==
[~2021-02-15] VITALS: Ht 167.6 cm; Wt 109.0 kg
[~2021-02-15 16:20] MED LIST changes: -MEPO100V SQ
[2021-02-15 16:23] VITALS: BP 131/79
[2021-02-15] MEDS ORDERED: MEPO100V SQ (16:33)
[2021-02-15 17:30] LABS: BASOPHILS % (AUTO) 0.2 % (0.0-2.0); EOSINOPHILS % (AUTO) 0.1 % (1.0-6.0); HEMATOCRIT 41.9 % (41-53); HEMOGLOBIN 13.9 g/dL (13.5-17.5); LYMPHOCYTES # (AUTO) 0.3 K/uL (1.0-4.8); MEAN CORPUSCULAR HEMOGLOBIN 27.6 pg (26.0-34.0); MEAN CORPUSCULAR HGB CONC 33.3 G/dL (31.0-37.0); MEAN CORPUSCULAR VOLUME 83 fL (80-100); MONOCYTES # (AUTO) 0.2 K/uL (0.1-1.0); MONOCYTES % (AUTO) 2.5 % (2.0-9.0); NEUTROPHILS % (AUTO) 93.2 % (40.0-70.0); PLATELET COUNT (AUTO) 235 K/uL (150-450); RED BLOOD CELL COUNT(AUTO) 5.06 MIL/uL (4.50-5.90); RED CELL DISTRIBUTION WIDTH 16.1 % (11.5-14.5)
[2021-02-15 17:46] LABS: ALBUMIN 3.4 g/dL (3.4-5.0); BILIRUBIN,TOTAL 0.4 mg/dL (0.1-1.0); CALCIUM, TOTAL 8.2 mg/dL (8.8-10.5); CREATININE 1.26 mg/dL (0.60-1.30); TOTAL PROTEIN, SERUM 6.5 g/dL (6.4-8.2)
[2021-02-15 17:48] LABS: POTASSIUM 2.6 mmol/L (3.5-5.1)
[2021-02-15] MEDS ORDERED: POTASSIUM CHLORIDE 10% 40 MEQ/30 ML LIQUID UDCUP PO ONE ×2 (18:15→18:45)
[2021-02-15] MEDS ORDERED: DIPHENOXYLATE/ATROP 2.5-0.025 MG TABLET PO ONE (18:15)
== END 2021-02-15 18:56 | disposition home or self-care (01) ==
LOC: EMS 16:22
DX: T78.49XA Other allergy, initial encounter (principal); E87.6 Hypokalemia; J44.9 Chronic obstructive pulmonary disease, unspecified; K21.9 Gastro-esophageal reflux disease without esophagitis; E78.00 Pure hypercholesterolemia, unspecified; I10 Essential (primary) hypertension; G89.29 Other chronic pain; M54.9 Dorsalgia, unspecified; Y92.89 Other specified places as the place of occurrence of the external cause; X58.XXXA Exposure to other specified factors, initial encounter
CPT/HCPCS: 80048; 80053; 83880; 84484; 85025; 99284

== ENCOUNTER → 2021-02-15 | Outpatient (CLI) | payer MEDICARE, MEDICAID ==
[~2021-02-15] MED LIST changes: -BENA20TA11 PO; +BENA20TA83 PO; +MEPO100V SQ
[2021-02-15 12:25] LABS: ANION GAP 10 mmol/L (8-16); CALCIUM, TOTAL 8.1 mg/dL (8.8-10.5); CARBON DIOXIDE 29 mmol/L (22-29); CHLORIDE 109 mmol/L (98-107); CREATININE 1.21 mg/dL (0.60-1.30); GLOMERULAR FILTR. RATE CALC > 60 mL/min (>60); GLUCOSE,RANDOM 101 mg/dL (70-110); SODIUM SERUM 148 mmol/L (136-145); UREA NITROGEN, BLOOD 26 mg/dL (7-18)
[2021-02-15 13:43] LABS: POTASSIUM 2.5 mmol/L (3.5-5.1)
== END | disposition home or self-care (01) ==
LOC: LABPV 09:18
PROVIDERS: ATTEND Hospitalist
DX: E87.6 Hypokalemia (principal)
CPT/HCPCS: 80048

== ENCOUNTER → 2021-02-16 | Outpatient (CLI) | payer MEDICARE, MEDICAID ==
[~2021-02-16] MED LIST changes: +IOHEXOL 350 MG/ML 100 ML VIAL ONE; +MEPO100V SQ; -PRED20 PO; +SODIUM CHLORIDE 0.9% 100 ML ONE
== END | disposition home or self-care (01) ==
LOC: RADMN 08:26
PROVIDERS: ATTEND Hospitalist
DX: Z01.89 Encounter for other specified special examinations (principal); J01.80 Other acute sinusitis; J02.9 Acute pharyngitis, unspecified; I67.82 Cerebral ischemia; R90.82 White matter disease, unspecified; J32.2 Chronic ethmoidal sinusitis; J32.3 Chronic sphenoidal sinusitis; R59.9 Enlarged lymph nodes, unspecified
CPT/HCPCS: 70450; 70491; J7050; Q9967

== ENCOUNTER → 2021-02-18 | Outpatient (CLI) | payer MEDICARE, MEDICAID ==
[~2021-02-18] VITALS: Ht 149.9 cm; Wt 101.3 kg
[~2021-02-18] MED LIST changes: -IOHEXOL 350 MG/ML 100 ML VIAL ONE; -SODIUM CHLORIDE 0.9% 100 ML ONE
[2021-02-18 10:01] VITALS: BP 119/70
== END | disposition home or self-care (01) ==
LOC: SRCNTR 09:41
PROVIDERS: ATTEND Hospitalist
DX: I10 Essential (primary) hypertension (principal); E87.6 Hypokalemia; J45.909 Unspecified asthma, uncomplicated; E78.5 Hyperlipidemia, unspecified; M54.59 Other low back pain; M25.552 Pain in left hip; R19.7 Diarrhea, unspecified
CPT/HCPCS: G0463

== ENCOUNTER → 2021-02-19 | Outpatient (CLI) | payer MEDICARE, MEDICAID ==
[~2021-02-19] VITALS: Ht 149.9 cm; Wt 102.0 kg
[2021-02-19 09:52] VITALS: BP 109/71
== END | disposition home or self-care (01) ==
LOC: SRCNTR 09:44
PROVIDERS: ATTEND Internal Medicine Critical Care Medicine
DX: J45.51 Severe persistent asthma with (acute) exacerbation (principal); I10 Essential (primary) hypertension; E78.5 Hyperlipidemia, unspecified; E66.01 Morbid (severe) obesity due to excess calories
CPT/HCPCS: G0463; Z7500

== ENCOUNTER → 2021-04-02 | Outpatient (CLI) | payer MEDICARE, MEDICAID ==
[~2021-04-02] VITALS: Ht 149.9 cm; Wt 103.0 kg
[2021-04-02 11:10] VITALS: BP 153/84
== END | disposition home or self-care (01) ==
LOC: SRCNTR 10:40
PROVIDERS: ATTEND Internal Medicine Critical Care Medicine
DX: J45.51 Severe persistent asthma with (acute) exacerbation (principal); I10 Essential (primary) hypertension; E78.5 Hyperlipidemia, unspecified; E66.01 Morbid (severe) obesity due to excess calories
CPT/HCPCS: G0463

== ENCOUNTER → 2021-05-13 | Outpatient (CLI) | payer MEDICARE, MEDICAID ==
[~2021-05-13] VITALS: Ht 149.9 cm; Wt 101.0 kg
[2021-05-13 09:47] VITALS: BP 98/73
== END | disposition home or self-care (01) ==
LOC: SRCNTR 08:52
PROVIDERS: ATTEND Hospitalist
DX: I10 Essential (primary) hypertension (principal); J45.909 Unspecified asthma, uncomplicated; E78.5 Hyperlipidemia, unspecified; M54.50 Low back pain, unspecified; M25.552 Pain in left hip; M54.9 Dorsalgia, unspecified
CPT/HCPCS: G0463

== ENCOUNTER → 2021-05-28 | Outpatient (CLI) | payer MEDICARE, MEDICAID ==
[~2021-05-28] VITALS: Ht 149.9 cm; Wt 99.0 kg
[2021-05-28 09:37] VITALS: BP 114/68
== END | disposition home or self-care (01) ==
LOC: SRCNTR 09:12
PROVIDERS: ATTEND Internal Medicine Critical Care Medicine
DX: J45.51 Severe persistent asthma with (acute) exacerbation (principal); I10 Essential (primary) hypertension; E66.01 Morbid (severe) obesity due to excess calories; E78.5 Hyperlipidemia, unspecified
CPT/HCPCS: G0463; Z7500

== ENCOUNTER → 2021-09-22 | Outpatient (CLI) | payer MEDICARE, MEDICAID ==
[~2021-09-22] VITALS: Ht 149.9 cm; Wt 103.0 kg
[2021-09-22 10:41] VITALS: BP 121/86
== END | disposition home or self-care (01) ==
LOC: SRCNTR 10:14
PROVIDERS: ATTEND Internal Medicine Critical Care Medicine
DX: Z09 Encounter for follow-up examination after completed treatment for conditions other than malignant neoplasm (principal); I10 Essential (primary) hypertension; E78.5 Hyperlipidemia, unspecified; J45.51 Severe persistent asthma with (acute) exacerbation; E66.01 Morbid (severe) obesity due to excess calories
CPT/HCPCS: G0463

== ENCOUNTER → 2021-12-16 | Outpatient (CLI) | payer MEDICARE, MEDICAID ==
[~2021-12-16] VITALS: Ht 167.6 cm; Wt 107.2 kg
[~2021-12-16] MED LIST changes: -FLUT16H NASAL; +FLUT16SP NASAL
[2021-12-16 12:34] VITALS: BP 112/73
== END | disposition home or self-care (01) ==
LOC: SRCNTR 11:41
PROVIDERS: ATTEND Hospitalist
DX: I10 Essential (primary) hypertension (principal); Z09 Encounter for follow-up examination after completed treatment for conditions other than malignant neoplasm; E78.5 Hyperlipidemia, unspecified; E66.9 Obesity, unspecified; J45.909 Unspecified asthma, uncomplicated
CPT/HCPCS: G0463; Z7500

== ENCOUNTER → 2022-01-04 | Outpatient (CLI) | payer MEDICARE, MEDICAID ==
[~2022-01-04] MED LIST changes: +FLUT16H NASAL; -FLUT16SP NASAL
[2022-01-04 12:12] VITALS: BP 125/74
== END | disposition home or self-care (01) ==
LOC: SRCNTR 10:23
PROVIDERS: ATTEND Internal Medicine Critical Care Medicine
DX: I10 Essential (primary) hypertension (principal); J45.51 Severe persistent asthma with (acute) exacerbation; E78.5 Hyperlipidemia, unspecified; E66.01 Morbid (severe) obesity due to excess calories; G89.29 Other chronic pain; M54.50 Low back pain, unspecified; M25.552 Pain in left hip; Z79.899 Other long term (current) drug therapy; Z88.8 Allergy status to other drugs, medicaments and biological substances; Z88.1 Allergy status to other antibiotic agents; Z91.018 Allergy to other foods
CPT/HCPCS: G0463

== ENCOUNTER 2022-05-05 17:33 | Inpatient (IN) | payer MEDICARE, OTHER ==
[~2022-05-05] VITALS: Ht 167.6 cm; Wt 100.0 kg
[~2022-05-05 17:33] MED LIST changes: -FLUT16H NASAL; +FLUT16SP NASAL
[2022-05-05] MEDS ORDERED: 0.9% SODIUM CHLORIDE 10 ML SYRINGE IVP PRN (18:00)
[2022-05-05] MEDS ORDERED: ACETAMINOPHEN 1000 MG/ISO-OSM 100 ML IV ONE (18:00)
[2022-05-05 18:18] LABS: BASOPHILS % (AUTO) 0.3 % (0.0-2.0); EOSINOPHILS % (AUTO) 0.1 % (1.0-6.0); HEMATOCRIT 45.6 % (41-53); HEMOGLOBIN 14.8 g/dL (13.5-17.5); LYMPHOCYTES # (AUTO) 0.8 K/uL (1.0-4.8); LYMPHOCYTES % (AUTO) 6.1 % (22.0-44.0); MEAN CORPUSCULAR HEMOGLOBIN 29.4 pg (26.0-34.0); MEAN CORPUSCULAR HGB CONC 32.4 G/dL (31.0-37.0); MEAN CORPUSCULAR VOLUME 91 fL (80-100); MONOCYTES # (AUTO) 1.1 K/uL (0.1-1.0); MONOCYTES % (AUTO) 8.1 % (2.0-9.0); NEUTROPHILS # (AUTO) 11.6 K/uL (1.8-7.7); PLATELET COUNT (AUTO) 216 K/uL (150-450); RED BLOOD CELL COUNT(AUTO) 5.03 MIL/uL (4.50-5.90)
[2022-05-05 18:18] LABS: COVID AG,FIA SOURCE NASAL SWAB
[2022-05-05 18:23] LABS: NEUTROPHILS % (AUTO) 85.4 % (40.0-70.0)
[2022-05-05 18:32] LABS: D-DIMER 0.47 mg/L FEU (0.00-0.50); PROTHROMBIN TIME 10.6 SEC (9.4-11.6)
[2022-05-05 18:33] LABS: B-TYPE NATRIURETIC PEPTIDE 81 pg/mL (0-100)
[2022-05-05 18:38] LABS: ALANINE AMINOTRANSFERASE 34 U/L (12-78); ALBUMIN 3.8 g/dL (3.4-5.0); ALKALINE PHOSPHATASE 86 U/L (46-116); ANION GAP 11 mmol/L (8-16); ASPARTATE AMINOTRANSFERASE 12 U/L (15-37); BILIRUBIN,TOTAL 0.5 mg/dL (0.1-1.0); CALCIUM, TOTAL 8.5 mg/dL (8.8-10.5); CARBON DIOXIDE 28 mmol/L (22-29); CHLORIDE 103 mmol/L (98-107); CREATINE KINASE, TOTAL ONLY 36 U/L (39-308); CREATININE 0.96 mg/dL (0.60-1.30); GLUCOSE,RANDOM 127 mg/dL (70-110); SODIUM SERUM 142 mmol/L (136-145); TOTAL PROTEIN, SERUM 7.6 g/dL (6.4-8.2); UREA NITROGEN, BLOOD 11 mg/dL (7-18)
[2022-05-05 18:39] LABS: GLOMERULAR FILTR. RATE CALC > 60 mL/min (>60); POTASSIUM 2.8 mmol/L (3.5-5.1)
[2022-05-05] MEDS ORDERED: POTASSIUM CHL 10 MEQ/WATER 50 ML IV ONE (18:45)
[2022-05-05] MEDS ORDERED: SODIUM CHLORIDE 0.9% 3,000 ML IV ONE (18:45)
[2022-05-05] MEDS ORDERED: POTASSIUM CHLORIDE 20 MEQ ER TABLET PO ONE (18:45)
[2022-05-05] MEDS ORDERED: AZITHROMYCIN 500 MG/NS 250 ML IV ONE (18:45)
[2022-05-05] MEDS ORDERED: CefTRIAXone 1 GM/DEXTROSE 50 ML IV ONE (18:45)
[2022-05-05 18:51] LABS: LACTIC ACID 2.4 mmol/L (0.4-2.0)
[2022-05-05 19:04] LABS: INFLUENZA TYPE A NEGATIVE FOR TYPE A (NEGATIVE); INFLUENZA TYPE B NEGATIVE FOR TYPE B (NEGATIVE)
[2022-05-05] MEDS ORDERED: ALBUTEROL SULFATE 2.5 MG/0.5 ML NEB SOLUTION NEB ONE (19:15)
[2022-05-05] MEDS ORDERED: IPRATROPIUM BROMIDE 0.5 MG/2.5 ML NEB SOLUTION NEB ONE (19:15)
[2022-05-05] MEDS ORDERED: ALBUTEROL SULFATE HFA 90 MCG/PUFF 8 GM INHALER IH ONE (19:30)
[2022-05-05 19:32] LABS: PHOSPHORUS 3.8 mg/dL (2.5-4.9)
[2022-05-05] MEDS ORDERED: MAGNESIUM SULFATE 2 GM/WATER 50 ML IV ONE (20:15)
[2022-05-05] MEDS ORDERED: ALBUTEROL SULFATE 2.5 MG/0.5 ML NEB SOLUTION NEB PRN (20:15)
[2022-05-05] MEDS ORDERED: ONDANSETRON HCL 4 MG/2 ML VIAL IVP PRN (20:15)
[2022-05-05] MEDS ORDERED: ACETAMINOPHEN 325 MG TABLET PO PRN (20:15)
[2022-05-05] MEDS ORDERED: IPRATROPIUM BROMIDE 0.5 MG/2.5 ML NEB SOLUTION NEB PRN (20:15)
[2022-05-05] MEDS ORDERED: NALOXONE HCL 0.4 MG/ML VIAL IVP PRN (20:45)
[2022-05-05 21:06] LABS: APPEARANCE,URINE CLEAR (CLEAR); BILIRUBIN,URINE NEGATIVE (NEGATIVE); GLUCOSE, URINE (UA) NEGATIVE (NEGATIVE); KETONES,URINE NEGATIVE (NEGATIVE); LEUKOCYTE ESTERASE ,URINE NEGATIVE (NEGATIVE); NITRATE,URINE NEGATIVE (NEGATIVE); OCCULT BLOOD,URINE NEGATIVE (NEGATIVE); PH,URINE 6.5 (5.0-8.0); PROTEIN,URINE TRACE mg/dL (NEGATIVE); SPECIFIC GRAVITIY, URINE 1.013 (1.003-1.030); UROBILINOGEN,URINE <=1.0 mg/dL (<=1.0)
[2022-05-05] MEDS: ATORVASTATIN CALCIUM 20 MG TABLET PO SCH (21:17)
[2022-05-05] MEDS: HYDROmorphone HCL 2 MG/ML SYRINGE IVP PRN (21:17)
[2022-05-05] MEDS ORDERED: IOHEXOL 350 MG/ML 100 ML VIAL ONE (21:37)
[2022-05-05 23:16] VITALS: BP 138/87
[2022-05-06] MEDS: HEPARIN SODIUM,PORCINE 5,000 UNITS/ML VIAL SQ SCH ×4 (00:15→23:19)
[2022-05-06] MEDS: HYDROmorphone HCL 2 MG/ML SYRINGE IVP PRN ×6 (00:16→22:53)
[2022-05-06 05:00] VITALS: BP 142/72
[2022-05-06 07:00] LABS: BASOPHILS % (AUTO) 0.2 % (0.0-2.0); EOSINOPHILS % (AUTO) 0 % (1.0-6.0); HEMATOCRIT 40.9 % (41-53); HEMOGLOBIN 13.5 g/dL (13.5-17.5); LYMPHOCYTES # (AUTO) 0.8 K/uL (1.0-4.8); LYMPHOCYTES % (AUTO) 6.8 % (22.0-44.0); MEAN CORPUSCULAR HEMOGLOBIN 29.9 pg (26.0-34.0); MEAN CORPUSCULAR HGB CONC 33.1 G/dL (31.0-37.0); MEAN CORPUSCULAR VOLUME 90 fL (80-100); MONOCYTES # (AUTO) 1.1 K/uL (0.1-1.0); MONOCYTES % (AUTO) 10.2 % (2.0-9.0); NEUTROPHILS # (AUTO) 9.2 K/uL (1.8-7.7); NEUTROPHILS % (AUTO) 82.8 % (40.0-70.0); PLATELET COUNT (AUTO) 173 K/uL (150-450); RED BLOOD CELL COUNT(AUTO) 4.53 MIL/uL (4.50-5.90); RED CELL DISTRIBUTION WIDTH 13.6 % (11.5-14.5)
[2022-05-06 07:14] LABS: ANION GAP 11 mmol/L (8-16); CALCIUM, TOTAL 7.7 mg/dL (8.8-10.5); CARBON DIOXIDE 24 mmol/L (22-29); CHLORIDE 104 mmol/L (98-107); CREATININE 0.67 mg/dL (0.60-1.30); GLOMERULAR FILTR. RATE CALC > 60 mL/min (>60); GLUCOSE,RANDOM 103 mg/dL (70-110); POTASSIUM 3.1 mmol/L (3.5-5.1); SODIUM SERUM 139 mmol/L (136-145); UREA NITROGEN, BLOOD 8 mg/dL (7-18)
[2022-05-06] MEDS: AmLODIPine BESYLATE 10 MG TABLET PO SCH (08:59)
[2022-05-06] MEDS: MethylPREDNISolone SOD SUCC 125 MG/2 ML VIAL IVP SCH (09:00)
[2022-05-06] MEDS: BUDESONIDE/FORMOTEROL FUMARATE 160-4.5 MCG/PUFF 10.2 GM INHALER IH SCH ×2 (09:00→20:09)
[2022-05-06] MEDS: OMEPRAZOLE 20 MG CAPSULE PO SCH (09:00)
[2022-05-06] MEDS: BENAZEPRIL HCL 20 MG TABLET PO SCH (09:00)
[2022-05-06] MEDS: MONTELUKAST SODIUM 10 MG TABLET PO SCH (09:00)
[2022-05-06] MEDS: POTASSIUM CHLORIDE 10 MEQ ER TABLET PO SCH (09:00)
[2022-05-06 09:42] VITALS: BP 140/94
[2022-05-06 11:49] VITALS: BP 132/76
[2022-05-06 15:45] VITALS: BP 132/85
[2022-05-06] MEDS ORDERED: SODIUM CHLORIDE 0.9% 250 ML IV ONE (16:55)
[2022-05-06] MEDS ORDERED: PEG 3350/NA SULF,BICARB,CL/KCL 4000 ML SOLUTION PO ONE (17:00)
[2022-05-06] MEDS ORDERED: AZITHROMYCIN 500 MG/NS 250 ML IV SCH (18:00)
[2022-05-06 19:35] VITALS: BP 151/86
[2022-05-06] MEDS: ATORVASTATIN CALCIUM 20 MG TABLET PO SCH (20:08)
[2022-05-07 01:30] VITALS: BP 141/82
[2022-05-07] MEDS: HYDROmorphone HCL 2 MG/ML SYRINGE IVP PRN (02:59)
[2022-05-07 05:00] VITALS: BP 135/85
[2022-05-07] MEDS: HEPARIN SODIUM,PORCINE 5,000 UNITS/ML VIAL SQ SCH ×2 (08:00→10:02)
[2022-05-07] MEDS ORDERED: SODIUM CHLORIDE 0.9% 1,000 ML ONE (08:44)
[2022-05-07] MEDS: POTASSIUM CHLORIDE 10 MEQ ER TABLET PO SCH (10:02)
[2022-05-07] MEDS: OMEPRAZOLE 20 MG CAPSULE PO SCH (10:02)
[2022-05-07] MEDS: MONTELUKAST SODIUM 10 MG TABLET PO SCH (10:03)
[2022-05-07] MEDS: AmLODIPine BESYLATE 10 MG TABLET PO SCH (10:03)
[2022-05-07] MEDS: BUDESONIDE/FORMOTEROL FUMARATE 160-4.5 MCG/PUFF 10.2 GM INHALER IH SCH (10:03)
[2022-05-07] MEDS: BENAZEPRIL HCL 20 MG TABLET PO SCH (10:03)
[2022-05-07] MEDS: MethylPREDNISolone SOD SUCC 125 MG/2 ML VIAL IVP SCH (10:05)
[2022-05-07] MEDS ORDERED: FentaNYL CITRATE PF 100 MCG/2 ML VIAL ONE (10:21)
[2022-05-07] MEDS ORDERED: MIDAZOLAM HCL 2 MG/2 ML VIAL ONE (10:21)
[2022-05-07] MEDS ORDERED: LIDOCAINE/PF 2% 5 ML VIAL IM ONE (12:00)
[2022-05-07] MEDS ORDERED: PROPOFOL 1% 20 ML VIAL IVP ONE (12:00)
[2022-05-07 12:06] LABS: ALANINE AMINOTRANSFERASE 30 U/L (12-78); ALBUMIN 3.5 g/dL (3.4-5.0); ALKALINE PHOSPHATASE 75 U/L (46-116); ANION GAP 8 mmol/L (8-16); ASPARTATE AMINOTRANSFERASE 14 U/L (15-37); BILIRUBIN,TOTAL 0.5 mg/dL (0.1-1.0); CALCIUM, TOTAL 8.2 mg/dL (8.8-10.5); CARBON DIOXIDE 26 mmol/L (22-29); CHLORIDE 108 mmol/L (98-107); CREATININE 0.68 mg/dL (0.60-1.30); GLOMERULAR FILTR. RATE CALC > 60 mL/min (>60); GLUCOSE,RANDOM 94 mg/dL (70-110); LIPASE 83 U/L (73-393); POTASSIUM 3.2 mmol/L (3.5-5.1); SODIUM SERUM 142 mmol/L (136-145); TOTAL PROTEIN, SERUM 7.5 g/dL (6.4-8.2); UREA NITROGEN, BLOOD 11 mg/dL (7-18)
== END 2022-05-07 12:40 | disposition left against medical advice (07) | DRG 871 ==
LOC: EMS 17:41 → 5S 22:00
PROVIDERS: ADMIT Internal Medicine; ATTEND Internal Medicine
PROC: 0DJD8ZZ Inspection of Lower Intestinal Tract, Via Natural or Artificial Opening Endoscopic (ICD-10-PCS; principal; 2022-05-07 10:00)
DX: A41.89 Other specified sepsis (principal); U07.1 COVID-19; E87.20 Acidosis, unspecified; J45.901 Unspecified asthma with (acute) exacerbation; K59.39 Other megacolon; I11.0 Hypertensive heart disease with heart failure; G89.4 Chronic pain syndrome; E87.6 Hypokalemia; E83.42 Hypomagnesemia; E66.9 Obesity, unspecified; E78.00 Pure hypercholesterolemia, unspecified; I50.9 Heart failure, unspecified; Z96.659 Presence of unspecified artificial knee joint; J44.9 Chronic obstructive pulmonary disease, unspecified; K59.81 Ogilvie syndrome; K64.4 Residual hemorrhoidal skin tags; K21.9 Gastro-esophageal reflux disease without esophagitis; J32.9 Chronic sinusitis, unspecified; Z82.5 Family history of asthma and other chronic lower respiratory diseases; Z88.6 Allergy status to analgesic agent; Z91.199 Patient's noncompliance with other medical treatment and regimen due to unspecified reason; Z88.1 Allergy status to other antibiotic agents; Z88.8 Allergy status to other drugs, medicaments and biological substances; Z91.018 Allergy to other foods; Z79.899 Other long term (current) drug therapy; Z68.35 Body mass index [BMI] 35.0-35.9, adult
CPT/HCPCS: 70450; 71045; 74019; 74177; 80048; 80053; 81003; 82550; 83605; 83690; 83735; 83880; 84100; 84145; 84484; 85025; 85379; 85610; 85730; 87040; 87804; 93005; 94640; 99291; J0131; J0456; J1170; J1644; J2250; J2310; J2704; J2930; J3010; J3475; J3480; J3490; J3535; J7030; J7050; Q9967; 36415-L1; 36415-TC; J7613

== ENCOUNTER → 2022-05-16 | Outpatient (CLI) | payer MEDICARE, OTHER ==
[~2022-05-16] VITALS: Ht 162.6 cm; Wt 107.0 kg
[~2022-05-16] MED LIST changes: +AZIT250T9 PO; -BENZ200C53 PO; -FLUO5DRO OU; -GUAIF600 PO
[2022-05-16 13:43] VITALS: BP 132/73
== END | disposition home or self-care (01) ==
LOC: SRCNTR 13:41
PROVIDERS: ATTEND Hospitalist
DX: Z09 Encounter for follow-up examination after completed treatment for conditions other than malignant neoplasm (principal); I10 Essential (primary) hypertension; E78.5 Hyperlipidemia, unspecified; E66.9 Obesity, unspecified; J44.9 Chronic obstructive pulmonary disease, unspecified
CPT/HCPCS: G0463; Z7500

== ENCOUNTER → 2022-05-17 | Outpatient (CLI) | payer MEDICARE, OTHER ==
[~2022-05-17] MED LIST changes: +AMLO-258 PO; +ATOR20TA86 PO; +BARIUM SULFATE 0.1% SUSPENSION 450 ML BOTTLE ONE; +CYCL5TAB PO; +FLUT1BLS IH; +FLUT1BLS15 IH; +IOHEXOL 350 MG/ML 100 ML VIAL ONE; +SODIUM CHLORIDE 0.9% 100 ML ONE
== END | disposition home or self-care (01) ==
LOC: RADMN 08:56
PROVIDERS: ATTEND Hospitalist
DX: K59.39 Other megacolon (principal); M51.46 Schmorl's nodes, lumbar region
CPT/HCPCS: 74177; Q9967; J7050

== ENCOUNTER 2022-05-31 09:15 | Day surgery (SDC) | payer MEDICARE, OTHER ==
[2022-05-30 10:44] LABS: COVID AG,FIA SOURCE NASOPHARYNGEAL
[~2022-05-31] VITALS: Ht 167.6 cm; Wt 104.5 kg
[~2022-05-31 09:15] MED LIST changes: -AZIT250T9 PO; -BARIUM SULFATE 0.1% SUSPENSION 450 ML BOTTLE ONE; -IOHEXOL 350 MG/ML 100 ML VIAL ONE; +SODIUM CHLORIDE 0.9% 1,000 ML IV ONE; -SODIUM CHLORIDE 0.9% 100 ML ONE
[2022-05-31] MEDS ORDERED: PROPOFOL 1% 20 ML VIAL IVP ONE (09:16)
[2022-05-31] MEDS ORDERED: LIDOCAINE/PF 2% 5 ML VIAL IM ONE (09:16)
== END 2022-05-31 11:45 | disposition home or self-care (01) ==
LOC: SURGERY 09:15
PROVIDERS: ATTEND Student in an Organized Health Care Education/Training Program
DX: K62.1 Rectal polyp (principal); K64.8 Other hemorrhoids; K64.4 Residual hemorrhoidal skin tags; K59.39 Other megacolon; Z20.822 Contact with and (suspected) exposure to COVID-19; Z79.899 Other long term (current) drug therapy; Z98.890 Other specified postprocedural states; K59.81 Ogilvie syndrome
CPT/HCPCS: 87426; 45385; 88305; C9803; J2704; J3490

== ENCOUNTER 2022-07-23 03:44 | Emergency (ER) | payer MEDICARE, OTHER ==
[~2022-07-23] VITALS: Ht 167.6 cm; Wt 104.5 kg
[~2022-07-23 03:44] MED LIST changes: +ALBU18HF12 IH; -ALBU8HFA IH; -SODIUM CHLORIDE 0.9% 1,000 ML IV ONE
[2022-07-23] MEDS ORDERED: ACETAMINOPHEN 500 MG TABLET PO ONE (04:15)
[2022-07-23] MEDS ORDERED: IPRATROPIUM BROMIDE 0.5 MG/2.5 ML NEB SOLUTION NEB ONE (04:15)
[2022-07-23] MEDS ORDERED: ALBUTEROL SULFATE 2.5 MG/0.5 ML NEB SOLUTION NEB ONE (04:15)
[2022-07-23] MEDS ORDERED: 0.9% SODIUM CHLORIDE 15 ML NEB SOLUTION NEB ONE (04:35)
[2022-07-23 04:42] LABS: COVID AG,FIA SOURCE NASOPHARYNGEAL
[2022-07-23 04:58] LABS: INFLUENZA TYPE A NEGATIVE FOR TYPE A (NEGATIVE); INFLUENZA TYPE B NEGATIVE FOR TYPE B (NEGATIVE)
[2022-07-23] MEDS ORDERED: AZIT250T9 PO (05:07)
[2022-07-23] MEDS ORDERED: HYDROmorphone HCL 2 MG TABLET PO ONE (05:15)
[2022-07-23 05:37] VITALS: BP 110/74
== END 2022-07-23 05:47 | disposition home or self-care (01) ==
LOC: EMS 03:44
DX: J18.8 Other pneumonia, unspecified organism (principal); J45.909 Unspecified asthma, uncomplicated; J44.9 Chronic obstructive pulmonary disease, unspecified; E78.00 Pure hypercholesterolemia, unspecified; I10 Essential (primary) hypertension; Z98.890 Other specified postprocedural states; Z96.659 Presence of unspecified artificial knee joint; Z88.6 Allergy status to analgesic agent; Z91.018 Allergy to other foods; Z20.822 Contact with and (suspected) exposure to COVID-19
CPT/HCPCS: 71045; 87804; 94640; 99284; J7613

== ENCOUNTER 2022-09-15 21:41 | Emergency (ER) | payer MEDICARE, OTHER ==
[~2022-09-15] VITALS: Ht 167.6 cm; Wt 104.5 kg
[~2022-09-15 21:41] MED LIST changes: +ATOR20TA PO; -ATOR20TA86 PO
[2022-09-15] MEDS ORDERED: ALBUTEROL SULFATE 2.5 MG/0.5 ML NEB SOLUTION NEB ONE (22:45)
[2022-09-15] MEDS ORDERED: OxyCODONE HCL/ACETAMINOPHEN 5-325 MG TABLET PO ONE (22:45)
[2022-09-15] MEDS ORDERED: IPRATROPIUM BROMIDE 0.5 MG/2.5 ML NEB SOLUTION NEB ONE (22:45)
[2022-09-16 01:00] VITALS: BP 135/75
[2022-09-16] MEDS ORDERED: MORPHINE SULFATE 4 MG/ML SYRINGE IM ONE (01:15)
== END 2022-09-16 01:00 | disposition home or self-care (01) ==
LOC: EMS 21:42
DX: S52.121A Displaced fracture of head of right radius, initial encounter for closed fracture (principal); J45.909 Unspecified asthma, uncomplicated; J44.9 Chronic obstructive pulmonary disease, unspecified; E78.00 Pure hypercholesterolemia, unspecified; I10 Essential (primary) hypertension; G89.29 Other chronic pain; M54.9 Dorsalgia, unspecified; M25.559 Pain in unspecified hip; Z96.659 Presence of unspecified artificial knee joint; Z98.890 Other specified postprocedural states; Z88.6 Allergy status to analgesic agent; Z91.018 Allergy to other foods; Z91.010 Allergy to peanuts; W18.30XA Fall on same level, unspecified, initial encounter; Y93.89 Activity, other specified; Y92.89 Other specified places as the place of occurrence of the external cause; Y99.8 Other external cause status
CPT/HCPCS: 99283; 29105; 94640; 73080; 96372; J2270

== ENCOUNTER → 2022-09-20 | Outpatient (CLI) | payer MEDICARE, OTHER ==
[~2022-09-20] VITALS: Ht 167.6 cm; Wt 110.5 kg
[~2022-09-20] MED LIST changes: +BENA-18 PO; -BENA20TA83 PO
[2022-09-20 12:18] VITALS: BP 139/92; PULSE 98; RESP 16; TEMP 98.3; O2SAT 94
== END | disposition home or self-care (01) ==
LOC: SRCNTR 12:05
PROVIDERS: ATTEND Hospitalist
DX: M79.601 Pain in right arm (principal); J45.909 Unspecified asthma, uncomplicated; I10 Essential (primary) hypertension; E78.5 Hyperlipidemia, unspecified; E66.9 Obesity, unspecified
CPT/HCPCS: G0463; Z7500